=== PATIENT | male | born 1940 | race Caucasian/White ===

== ENCOUNTER 2019-05-05 13:41 | Outpatient (CLI) | payer MEDICARE, OTHER, SELFPAY ==
[2019-05-05 14:11] LABS: Basophils % 0.7 %; Eosinophils # 0.2 10^3/uL (0.0-0.8); Eosinophils % 2.9 %; Hematocrit 42.9 % (42.0-52.0); Hemoglobin 14.3 g/dL (11.7-16.6); Lymphocytes # 0.9 10^3/uL (0.8-4.8); Lymphocytes % 14.7 %; Mean Corpuscular HGB Conc 33.3 g/dL (30.0-36.0); Mean Corpuscular Hemoglobin 31.8 pg (28.0-34.0); Mean Corpuscular Volume 95.5 fL (80-94); Mean Platelet Volume 12.2 fL (7.4-10.4); Monocytes # 0.5 10^3/uL (0.2-0.9); Monocytes % 8.2 %; Neutrophils # 4.3 10^3/uL (1.8-7.7); Neutrophils % 73.2 %; Nucleated Red Blood Cells % 0 %; Platelet Count 121 10^3/cmm (130-400); Red Blood Count 4.49 10^6/uL (4.1-5.3); Red Cell Distribution Width 12.6 % (12.1-15.1); White Blood Count 5.8 10^3/uL (4.0-10.0)
--- NOTE | 2019-05-05 15:55 | ONC FU_ITS ---
Dr. Chun follow up note Patient: Red Barraza Unit #: [id number]: 1940 Dicatated By: Nel Chun M.D.Date of Visit:May 05, 2019 Onc Med Follow-up/Prog Note History of Present Illness: Mr. Red Barraza, is a 79-year-old gentleman with long-standing history of isolated mild thrombocytopenia since 2009, since then has been followed on a regular basis with no significant change in his mild but persistent thrombocytopenia, his platelet count has always stayed above 100,000.And on many occasion lab mentioned about platelet clumps Patient has no history of gross bleeding, no history of petechiae or ecchymosis except occasionally on the arms. No history of hematology evaluation the past. Next Denies any history of night sweats, weight loss, fever or chills, or abdominal fullness or splenomegaly or peripheral lymphadenopathy. Patient denies any alcohol use. No fever or chills, no nausea or vomiting, no abdominal pain, no diarrhea constipation, no history of recurrent infections. CT scan of chest abdomen pelvis done on 02/10/2019 showed subcentimeter mediastinal and hilar lymphadenopathy and 7.6 mm nodule in the periphery of right lower lobe and 4 mm nodule in the left upper lobe and several other subcentimeter nodules seen in the right upper lobe. No significant adenopathy in the abdomen or pelvis spleen size is normal Infrarenal abdominal aortic aneurysm at 3.4 cm. Was referred to Dr. Sprague and seen on 03/05/2019 and his recommendations were follow-up with CT scan of chest her lung nodule and CTA chest abdomen for aneurysm in 6 months. Came for follow-up denies any specific complaints, no nosebleed or gum bleed, no petechiae or ecchymosis, no melena or hematochezia, no hemoptysis or hematemesis. Medications: AZO Bladder Control/Go-Less 1 Capsule Oral daily, Eliquis 1 Tablet (of 5 mg) Oral b.i.d., Famotidine 1 Tablet (of 20 mg) Oral daily, Levothyroxine Sodium 1 Tablet (of 150 mcg) Oral daily, Lipitor 1 Tablet (of 40 mg) Oral daily, Lisinopril 1 Tablet (of 40 mg) Oral b.i.d. Allergies: Sulfa Antibiotics Review of Systems: Review of Systems is not available for this patient. Vital Signs: Performed on May 05, 2019 15:28 Height - 71.00 in Weight - 179.0 lbs (HIGH) BSA - 2.01 sq.m BMI - 24.97 Temperature - 98.0 F (LOW) Pulse - 88 /min Respiration - 18 /min BP - 120/78 mm(hg) O2 Sat - 98 % Pain - 0 Performance Status: 1 - No physically strenuous activity, but ambulatory and able to carry out light or sedentary work (e.g. office work, light house work). (ECOG) Physical Examination: ENMT - . No oral exudates, ulcers, masses, thrush or mucositis. Oropharynx clear. Tongue normal, Respiratory - Lungs are clear to auscultation without rhonchi or wheezing, Cardiovascular - Regular rate and rhythm of heart, Abdomen - Non-tender, non-distended, Good bowel sounds. No guarding or rebound tenderness. No pulsatile masses, Extremities - no edema. Lab/Imaging: Test performed on Feb 10, 2019 11:53 BUN 14 mg/dL Creatinine 1.2 mg/dL Cr Clearance (Est) 54.39 mL/min WBC 5.4 10 3/uL RBC 4.45 10 6/uL HGB 14.7 g/dl HCT 43.0 % MCV 96.6 fl MCH 33.1 pg MCHC 34.2 g/dl RDW 14.7 % Platelet Count 109 10 3/cmm MPV 10.0 fl Neutrophils 3.7 10 3/uL Lymphocytes 0.9 10 3/uL Monocytes 0.4 10 3/uL Eosinophils 0.3 10 3/uL Basophils 0.0 10 3/uL Neutrophil % 68.2 % Lymphocyte % 16.5 % Monocyte % 8.2 % Eosinophil % 6.3 % Basophils % 0.8 % Test performed on Jan 20, 2019 10:44 Manual Neutrophils Abs 3.2 10 3/cmm Manual Lymphocytes Abs 1.2 10 3/cmm Manual Monocytes Abs 0.5 10 3/cmm Manual Eosinophils Abs 0.1 10 3/cmm Manual Basophils Abs 0.1 10 3/cmm Manual Segs % 59 % Manual Bands % 2.0 % Manual Lymphs % 24.0 % Manual Monos % 10.0 % Manual Eos % 3 % Manual Basos % 2.0 % Platelet Estimate DECREASED PLATELET ESTIMATE FROM SMEAR: 122,000 --- 01/20/19 1309 --- PLT EST previously reported as: DECREASED L Impression: Isolated mild thrombocytopenia with a normal hemoglobin and platelets and differential Etiology, multifactorial including low-grade ITP versus underlying MDS or platelet clumping or medication induced.or underlying lymphoproliferative disorder but less likely Initially observed in 2009, and on many occasion lab mentioned about platelets clumps ? Bilateral axillary lymphadenopathy CT scan of neck chest abdomen pelvis done on02/10/2019 showed no significant central lymphadenopathy or organomegaly and no evidence of axillary or cervical lymphadenopathy. Plan: Discussed with patient regarding his labs white blood count 5.8 hemoglobin 14.3 crit 42.8 platelets 121,000 compared to 109,000 on 02/10/2019 Clinically, patient is doing well, no sign of gross bleeding. His platelet count has improved and remaining CBC showed hemoglobin and white blood count in normal range. We'll continue to monitor he will return to clinic in 3 months with CBC As far as pulmonary nodule and aneurysm is concern, patient is being by Dr. Sprague and follow-up CT scan of chest and CTA of chest abdomen is under consideration 6 months Signed By: Nel Chun M.D. <<Signature on File>>
== END 2019-05-05 13:42 | disposition home or self-care (01) ==
LOC: ONCMED 13:46
PROVIDERS: Family Provider Family Medicine; PCP Family Medicine; Visit Provider Internal Medicine Hematology & Oncology
DX: D69.6 Thrombocytopenia, unspecified (principal); I71.4 Abdominal aortic aneurysm, without rupture; R91.1 Solitary pulmonary nodule
CPT/HCPCS: 85025; G0463

== ENCOUNTER 2019-09-23 08:28 | Outpatient (CLI) | payer MEDICARE, OTHER, SELFPAY ==
--- NOTE | 2019-09-23 08:15 | XR_ITS ---
WS: [id number] KUB, 09/23/2019 Clinical Data: Stones Comparison: KUB, 08/06/2016. Findings: There is a large amount of fecal material and gas obscuring detail over both kidneys. No obvious intr arenal calculi are seen. There may be a 0.7 cm right ureteral calculus which is adjacent to the L3-L4 disc interspace. The patient has a healed fracture of the pubic symphysis. 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 XR/XR KUB [id number] Impression: 1. Possible 0.7 cm right ureteral calculus adjacent to the L3-L4 disc interspac e. 2. Large amount of fecal material and gas obscures detail over the kidneys.
== END 2019-09-23 08:29 | disposition home or self-care (01) ==
PROVIDERS: Family Provider Family Medicine; PCP Family Medicine; Visit Provider Urology
DX: N20.0 Calculus of kidney (principal)
CPT/HCPCS: 74018; 81001

== ENCOUNTER 2019-09-26 16:08 | Inpatient (IN) | payer MEDICARE, OTHER, SELFPAY ==
[2019-09-26] VITALS (10 sets, daily range): BP systolic 126–155; BP diastolic 67–103; PULSE 78–104; RESP 16–23; TEMP 37.3–39.5; O2SAT 94–98; BMI 25.7
--- NOTE | 2019-09-26 16:20 | XRR_ITS ---
PROCEDURE INFORMATION: Exam: XR Chest, 1 View Exam date and time: 09/26/2019 4:51 PM Age: 79 years old Clinical indication: Dyspnea; Patient HX: Recent kidney stones, fever began today; Additional info: Dyspnea/cough TECHNIQUE: Imaging protocol: XR of the chest Views: 1 view. COMPARISON: No relevant prior studies available. FINDINGS: Lungs: Minimal discoid atelectasis in the lung bases. No visible active interstitial or alveolar airspace disease to suggest pneumonitis/pneumonia. Pleural space: Unremarkable. No pleural effusion. No pneumothorax. Heart/Mediastinum: Mild cardiomegaly. Arterial sclerosis. Bones/joints: Age related skeletal findings. XR/XR chest 1V portable [id number] IMPRESSION: Mild discoid atelectasis lung bases.
[2019-09-26] MEDS: acetaminophen 325 mg Tablet 650 MG PO (16:37)
--- NOTE | 2019-09-26 16:49 | W.ED.FEVER ---
Documented by User: Julio Corey DO 10/02/19 17:15 HPI - Fever General: Chief Complaint: Fever Stated Complaint: FEVER Time Seen by Provider: 09/26/19 16:18 History of Present Illness: HPI Narrative: 79-year-old male comes in complaining of fever he was seen earlier this week with some flank pain. He had gone to seen Dr. Rene is a history of nephrolithiasis he began treating him for that subsequently he began having a fever and seemed to be worsening and he seen a primary care doctor had some lab work done and were directed to [place] emergency room yesterday and got some IV fluids and a CT scan. They are discharged home on Augmentin although they did not take any he is also been given Cipro the says have not taken that for 4 days. Today he has a temperature that is increasing at home the recorded temp over 100 here he was a temp 103 he is confused and disoriented to time and place. He is aware of his 's presence in the room. He cannot answer any medical history questions for me and all the history is derived from his . MD elicited complaint: fever Pertinent past history: other (Nephrolithiasis) Onset (ago): day(s) Exacerbating factors: nothing Relieving factors: nothing Associated symptoms: Reports flank pain, chills, confusion, dysuria and nausea; Deny chest pain or nasal congestion Treatments prior to arrival fever: none Review of Systems Const: Reports: chills ENMT: Denies: throat pain, ear or mastoid pain, nasal discharge or nasal congestion Card: Denies: chest pain, edema, dyspnea on exertion or orthopnea Resp: Denies: dyspnea, productive cough or non-productive cough GI: Reports: nausea : Reports: flank pain and dysuria Skin/Breast: Denies: rash or pruritus Neuro: Reports: confusion PFSH ED PFSH: Medical History AAA (abdominal aortic aneurysm) 3.4 cm infrarenal abdominal aortic aneurysm following up with Dr. Sprague Chronic anticoagulation A. fib CKD (chronic kidney disease), stage III Hyperlipidemia Hypothyroid Lung nodules Microscopic hematuria Prostatitis Renal calculi Right ureteral calculus Thrombocytopenia Follows up with Dr. Chun, isolated thrombocytopenia Ventricular trigeminy Surgical History Hx of shoulder surgery Hx of tonsillectomy S/P PTCA (percutaneous transluminal coronary angioplasty) Family History Mother CAD (coronary artery disease) Father CAD (coronary artery disease) Social History Smoking and tobacco status: never smoked Alcohol intake: current Alcohol intake frequency: holidays/special occasions only Adopted: No Caregiver/support person: No Lives independently: No Household members: spouse Marital status: Current occupational status: retired History of recent travel: No Physical Exam Const: COMMON NORMALS: no acute distress GENERAL APPEARANCE: cooperative and comfortable ORIENTATION/CONSCIOUSNESS: Yes awake, Yes oriented to person, Yes oriented to place and Yes oriented to time HENMT: COMMON NORMALS: normocephalic, atraumatic, hearing grossly normal bilaterally, external ears normal, EAC's normal, TM's normal bilaterally, Normal nasal mucous membranes and turbinates present, moist oral mucous membranes and oropharynx normal HEAD & SCALP: normocephalic and atraumatic NOSE: Normal nasal mucous membranes and turbinates present EXTERNAL EAR: Yes external ears normal EXTERNAL AUDITORY CANAL: EAC's normal TYMPANIC MEMBRANE: TM's normal bilaterally Eye: COMMON NORMALS: Equal, round and reactive pupils present, EOMs intact bilaterally, conjunctivae normal and no scleral icterus CONJUNCTIVA: Yes conjunctivae normal PUPIL: Yes Equal, round and reactive pupils present Neck/C-Spine: COMMON NORMALS: full ROM, no lymphadenopathy, supple and no JVD Lymph: LYMPHATIC: no lymphadenopathy noted and no lymphedema noted Resp: COMMON NORMALS: normal respiratory effort, No retractions, No use of accessory muscles and clear to auscultation bilaterally AUSCULTATION: clear to auscultation bilaterally Cardio: COMMON NORMALS: no JVD, regular rate, regular rhythm and No murmurs present (Cardio) RATE: regular rate RHYTHM: regular rhythm GI: COMMON NORMALS: Soft to palpation and No hepatosplenomegaly present AUSCULTATION: Yes normoactive bowel sounds PALPATION: Yes Soft to palpation, No Tenderness to palpation present (GI), No Guarding due to palpation present (GI) and Yes No hepatosplenomegaly present Extremity: COMMON NORMALS: normal to inspection, capillary refill normal, no clubbing, cyanosis or edema, no calf tenderness and no pedal edema Neuro: SENSORIUM/ORIENTATION: Yes oriented to person, Yes oriented to place and Yes oriented to time Skin: COMMON NORMALS: no rashes or lesions noted GENERAL SKIN EXAM: no rashes or lesions noted Course Vital Signs: Vital signs: Vital Signs Temperature 98.0 F 09/28/19 19:39 Pulse Rate 97 09/28/19 19:39 Respiratory Rate 18 09/28/19 19:39 Blood Pressure 146/81 09/28/19 19:39 Pulse Oximetry 97 09/28/19 19:39 MDM - Fever MDM Narrative: Medical decision making narrative: Turned over to Dr. Govea at change of shift see his notes for final diagnosis and disposition Lab Data: Labs: Lab Results 09/26/19 09/26/19 09/26/19 Range/Units 16:30 16:31 16:31 WBC 9.7 (4.0-10.0) 10^3/ uL RBC 4.20 (4.1-5.3) 10^6/u L Hgb 13.3 (11.7-16.6) g/dL Hct 39.6 L (42.0-52.0) % MCV 94.3 H (80-94) fL MCH 31.7 (28.0-34.0) pg MCHC 33.6 (30.0-36.0) g/dL RDW 12.7 (12.1-15.1) % Plt Count 104 L (130-400) 10^3/c mm MPV 12.1 H (7.4-10.4) fL Neut % (Auto) 87.9 % Lymph % (Auto) 2.5 % Anderson % (Auto) 8.9 % Eos % (Auto) 0.0 % Baso % (Auto) 0.1 % Neut # (Auto) 8.6 H (1.8-7.7) 10^3/u L Lymph # (Auto) 0.2 L (0.8-4.8) 10^3/u L Anderson # (Auto) 0.9 (0.2-0.9) 10^3/u L Eos # (Auto) 0.0 (0.0-0.8) 10^3/u L Baso # (Auto) 0.0 (0.0-0.1) 10^3/u L Nucleated RBC % (a uto) 0 % Nucleated RBCs # 0.0 /100WBC Sodium 129 L (136-145) mmol/L Potassium 4.2 (3.5-5.1) mmol/L Chloride 95 L (98-107) mmol/L Carbon Dioxide 23 (22-29) mmol/L Anion Gap 15.2 (5-19) BUN 20 (8-23) mg/dL Creatinine 1.7 H (0.7-1.2) mg/dL Glucose 129 H (65-115) mg/dL Serum Osmolality (278-305) mOsm/k g Calculated Osmolal ity 266 L (285-295) mOsm/k g Lactate (0.5-2.2) mmol/L Uric Acid (3.4-7.0) mg/dL Calcium 8.0 L (8.5-10.5) mg/dL Total Bilirubin 1.3 H (0.15-1.2) mg/dL AST 44 H (0-40) U/L ALT 41 (0-41) U/L Alkaline Phosphata se 73 (40-130) IU/L Total Protein 6.3 L (6.6-8.7) g/dL Albumin 3.3 L (3.5-5.2) g/dL Globulin 3.0 (1.3-4.6) g/dL Lipase 43 (13-60) U/L TSH (0.27-4.20) uIU/ mL Urine Color (Yellow) Urine Appearance (CLEAR) Urine pH (5-7) Ur Specific Gravit y (1.005-1.030) Urine Protein (Negative) Urine Glucose (UA) (Normal) Urine Ketones (Negative) Urine Blood (Negative) Urine Nitrate (Negative) Urine Bilirubin (NEGATIVE) Urine Urobilinogen (Negative) mg/dL Ur Leukocyte Elvira ase (Negative) Urine RBC (0-2) /hpf Urine WBC (0-5) /hpf Ur Squamous Epith Cells (0-5) Amorphous Sediment Urine Bacteria (NONE) Serum Ketones (Negative) Influenza Type A A g Negative (Negative) Influenza Type B A g Negative (Negative) 09/26/19 09/26/19 09/26/19 Range/Units 16:31 16:31 16:31 WBC (4.0-10.0) 10^3/ uL RBC (4.1-5.3) 10^6/u L Hgb (11.7-16.6) g/dL Hct (42.0-52.0) % MCV (80-94) fL MCH (28.0-34.0) pg MCHC (30.0-36.0) g/dL RDW (12.1-15.1) % Plt Count (130-400) 10^3/c mm MPV (7.4-10.4) fL Neut % (Auto) % Lymph % (Auto) % Anderson % (Auto) % Eos % (Auto) % Baso % (Auto) % Neut # (Auto) (1.8-7.7) 10^3/u L Lymph # (Auto) (0.8-4.8) 10^3/u L Anderson # (Auto) (0.2-0.9) 10^3/u L Eos # (Auto) (0.0-0.8) 10^3/u L Baso # (Auto) (0.0-0.1) 10^3/u L Nucleated RBC % (a uto) % Nucleated RBCs # /100WBC Sodium (136-145) mmol/L Potassium (3.5-5.1) mmol/L Chloride (98-107) mmol/L Carbon Dioxide (22-29) mmol/L Anion Gap (5-19) BUN (8-23) mg/dL Creatinine (0.7-1.2) mg/dL Glucose (65-115) mg/dL Serum Osmolality 268 L (278-305) mOsm/k g Calculated Osmolal ity (285-295) mOsm/k g Lactate (0.5-2.2) mmol/L Uric Acid 4.2 (3.4-7.0) mg/dL Calcium (8.5-10.5) mg/dL Total Bilirubin (0.15-1.2) mg/dL AST (0-40) U/L ALT (0-41) U/L Alkaline Phosphata se (40-130) IU/L Total Protein (6.6-8.7) g/dL Albumin (3.5-5.2) g/dL Globulin (1.3-4.6) g/dL Lipase (13-60) U/L TSH 0.53 (0.27-4.20) uIU/ mL Urine Color (Yellow) Urine Appearance (CLEAR) Urine pH (5-7) Ur Specific Gravit y (1.005-1.030) Urine Protein (Negative) Urine Glucose (UA) (Normal) Urine Ketones (Negative) Urine Blood (Negative) Urine Nitrate (Negative) Urine Bilirubin (NEGATIVE) Urine Urobilinogen (Negative) mg/dL Ur Leukocyte Elvira ase (Negative) Urine RBC (0-2) /hpf Urine WBC (0-5) /hpf Ur Squamous Epith Cells (0-5) Amorphous Sediment Urine Bacteria (NONE) Serum Ketones Negative (Negative) Influenza Type A A g (Negative) Influenza Type B A g (Negative) 09/26/19 09/26/19 Range/Units 16:36 17:25 WBC (4.0-10.0) 10^3/ uL RBC (4.1-5.3) 10^6/u L Hgb (11.7-16.6) g/dL Hct (42.0-52.0) % MCV (80-94) fL MCH (28.0-34.0) pg MCHC (30.0-36.0) g/dL RDW (12.1-15.1) % Plt Count (130-400) 10^3/c mm MPV (7.4-10.4) fL Neut % (Auto) % Lymph % (Auto) % Anderson % (Auto) % Eos % (Auto) % Baso % (Auto) % Neut # (Auto) (1.8-7.7) 10^3/u L Lymph # (Auto) (0.8-4.8) 10^3/u L Anderson # (Auto) (0.2-0.9) 10^3/u L Eos # (Auto) (0.0-0.8) 10^3/u L Baso # (Auto) (0.0-0.1) 10^3/u L Nucleated RBC % (a uto) % Nucleated RBCs # /100WBC Sodium (136-145) mmol/L Potassium (3.5-5.1) mmol/L Chloride (98-107) mmol/L Carbon Dioxide (22-29) mmol/L Anion Gap (5-19) BUN (8-23) mg/dL Creatinine (0.7-1.2) mg/dL Glucose (65-115) mg/dL Serum Osmolality (278-305) mOsm/k g Calculated Osmolal ity (285-295) mOsm/k g Lactate 0.9 (0.5-2.2) mmol/L Uric Acid (3.4-7.0) mg/dL Calcium (8.5-10.5) mg/dL Total Bilirubin (0.15-1.2) mg/dL AST (0-40) U/L ALT (0-41) U/L Alkaline Phosphata se (40-130) IU/L Total Protein (6.6-8.7) g/dL Albumin (3.5-5.2) g/dL Globulin (1.3-4.6) g/dL Lipase (13-60) U/L TSH (0.27-4.20) uIU/ mL Urine Color Yellow (Yellow) Urine Appearance Clear (CLEAR) Urine pH 5 (5-7) Ur Specific Gravit y 1.015 (1.005-1.030) Urine Protein 1+ H (Negative) Urine Glucose (UA) Norm (Normal) Urine Ketones Negative (Negative) Urine Blood 2+ H (Negative) Urine Nitrate Negative (Negative) Urine Bilirubin Neg (NEGATIVE) Urine Urobilinogen 4 H (Negative) mg/dL Ur Leukocyte Elvira ase Negative (Negative) Urine RBC 0-4 H (0-2) /hpf Urine WBC 5-10 H (0-5) /hpf Ur Squamous Epith Cells 0-4 H (0-5) Amorphous Sediment Not Reportable Urine Bacteria Trace (NONE) Serum Ketones (Negative) Influenza Type A A g (Negative) Influenza Type B A g (Negative) Discharge Plan Discharge Patient Disposition: Admitted As Inpatient Admit Provider: Andreina Menchaca Clinical Impression: Pyelonephritis, Ureterolithiasis Condition: Stable Discharge Orders: Discharge Order (Routine); Ordered 09/28/19 Ordered By: Joselin Wolf Referrals: Leeann Mcclendon MD [Primary Care Provider] - 4-7 days (Post hospital discharge follow up. Treated for complicated UTI and had R ureteroscopy, laser lithotripsy and stent placement done by Dr. Rene.) Abdoul Rene MD [Physician] - 4-7 days (Post hospital discharge follow up. ) Discharge Diet: Cardiac Discharge Activity: Increase activity as tolerated Patient Instructions: Ciprofloxacin (By mouth), Cystoscopy (DC), Lithotripsy for Removal of Kidney Stones (DC) Discharge Date/Time: 09/26/19 21:48 Coding Level of Care Code ED Associate Embalmer/Funeral Director for Chg Fwd Exam Comprehensive Documented by User: Esvin Govea DO 09/27/19 03:11 HPI - Fever General: Chief Complaint: Fever Stated Complaint: FEVER Time Seen by Provider: 09/26/19 16:18 PFSH ED PFSH: Medical History AAA (abdominal aortic aneurysm) 3.4 cm infrarenal abdominal aortic aneurysm following up with Dr. Sprague Chronic anticoagulation A. fib CKD (chronic kidney disease), stage III Hyperlipidemia Hypothyroid Lung nodules Microscopic hematuria Prostatitis Renal calculi Right ureteral calculus Thrombocytopenia Follows up with Dr. Chun, isolated thrombocytopenia Ventricular trigeminy Surgical History Hx of shoulder surgery Hx of tonsillectomy S/P PTCA (percutaneous transluminal coronary angioplasty) Family History Mother CAD (coronary artery disease) Father CAD (coronary artery disease) Social History Smoking and tobacco status: never smoked Alcohol intake: current Alcohol intake frequency: holidays/special occasions only Adopted: No Caregiver/support person: No Lives independently: No Household members: spouse Marital status: Current occupational status: retired History of recent travel: No Course Vital Signs: Vital signs: Vital Signs Temperature 98.0 F 09/28/19 19:39 Pulse Rate 97 09/28/19 19:39 Respiratory Rate 18 09/28/19 19:39 Blood Pressure 146/81 09/28/19 19:39 Pulse Oximetry 97 09/28/19 19:39 MDM - Fever MDM Narrative: Medical decision making narrative: 79-year-old male with a known right kidney stone. He was seen at an outside facility last night for pain. He has a significant fever he developed today. His white count is only 9.7. His creatinine is 1.7. CT does not reveal a urinoma or abscess. It reveals a mid ureter stone with severe right hydronephrosis and hydroureter and perinephric stranding he is received a dose of ceftriaxone. He will be admitted with urology consultation. Lab Data: Labs: Lab Results 09/26/19 09/26/19 09/26/19 Range/Units 16:30 16:31 16:31 WBC 9.7 (4.0-10.0) 10^3/ uL RBC 4.20 (4.1-5.3) 10^6/u L Hgb 13.3 (11.7-16.6) g/dL Hct 39.6 L (42.0-52.0) % MCV 94.3 H (80-94) fL MCH 31.7 (28.0-34.0) pg MCHC 33.6 (30.0-36.0) g/dL RDW 12.7 (12.1-15.1) % Plt Count 104 L (130-400) 10^3/c mm MPV 12.1 H (7.4-10.4) fL Neut % (Auto) 87.9 % Lymph % (Auto) 2.5 % Anderson % (Auto) 8.9 % Eos % (Auto) 0.0 % Baso % (Auto) 0.1 % Neut # (Auto) 8.6 H (1.8-7.7) 10^3/u L Lymph # (Auto) 0.2 L (0.8-4.8) 10^3/u L Anderson # (Auto) 0.9 (0.2-0.9) 10^3/u L Eos # (Auto) 0.0 (0.0-0.8) 10^3/u L Baso # (Auto) 0.0 (0.0-0.1) 10^3/u L Nucleated RBC % (a uto) 0 % Nucleated RBCs # 0.0 /100WBC Sodium 129 L (136-145) mmol/L Potassium 4.2 (3.5-5.1) mmol/L Chloride 95 L (98-107) mmol/L Carbon Dioxide 23 (22-29) mmol/L Anion Gap 15.2 (5-19) BUN 20 (8-23) mg/dL Creatinine 1.7 H (0.7-1.2) mg/dL Glucose 129 H (65-115) mg/dL Serum Osmolality (278-305) mOsm/k g Calculated Osmolal ity 266 L (285-295) mOsm/k g Lactate (0.5-2.2) mmol/L Uric Acid (3.4-7.0) mg/dL Calcium 8.0 L (8.5-10.5) mg/dL Total Bilirubin 1.3 H (0.15-1.2) mg/dL AST 44 H (0-40) U/L ALT 41 (0-41) U/L Alkaline Phosphata se 73 (40-130) IU/L Total Protein 6.3 L (6.6-8.7) g/dL Albumin 3.3 L (3.5-5.2) g/dL Globulin 3.0 (1.3-4.6) g/dL Lipase 43 (13-60) U/L TSH (0.27-4.20) uIU/ mL Urine Color (Yellow) Urine Appearance (CLEAR) Urine pH (5-7) Ur Specific Gravit y (1.005-1.030) Urine Protein (Negative) Urine Glucose (UA) (Normal) Urine Ketones (Negative) Urine Blood (Negative) Urine Nitrate (Negative) Urine Bilirubin (NEGATIVE) Urine Urobilinogen (Negative) mg/dL Ur Leukocyte Elvira ase (Negative) Urine RBC (0-2) /hpf Urine WBC (0-5) /hpf Ur Squamous Epith Cells (0-5) Amorphous Sediment Urine Bacteria (NONE) Serum Ketones (Negative) Influenza Type A A g Negative (Negative) Influenza Type B A g Negative (Negative) 09/26/19 09/26/19 09/26/19 Range/Units 16:31 16:31 16:31 WBC (4.0-10.0) 10^3/ uL RBC (4.1-5.3) 10^6/u L Hgb (11.7-16.6) g/dL Hct (42.0-52.0) % MCV (80-94) fL MCH (28.0-34.0) pg MCHC (30.0-36.0) g/dL RDW (12.1-15.1) % Plt Count (130-400) 10^3/c mm MPV (7.4-10.4) fL Neut % (Auto) % Lymph % (Auto) % Anderson % (Auto) % Eos % (Auto) % Baso % (Auto) % Neut # (Auto) (1.8-7.7) 10^3/u L Lymph # (Auto) (0.8-4.8) 10^3/u L Anderson # (Auto) (0.2-0.9) 10^3/u L Eos # (Auto) (0.0-0.8) 10^3/u L Baso # (Auto) (0.0-0.1) 10^3/u L Nucleated RBC % (a uto) % Nucleated RBCs # /100WBC Sodium (136-145) mmol/L Potassium (3.5-5.1) mmol/L Chloride (98-107) mmol/L Carbon Dioxide (22-29) mmol/L Anion Gap (5-19) BUN (8-23) mg/dL Creatinine (0.7-1.2) mg/dL Glucose (65-115) mg/dL Serum Osmolality 268 L (278-305) mOsm/k g Calculated Osmolal ity (285-295) mOsm/k g Lactate (0.5-2.2) mmol/L Uric Acid 4.2 (3.4-7.0) mg/dL Calcium (8.5-10.5) mg/dL Total Bilirubin (0.15-1.2) mg/dL AST (0-40) U/L ALT (0-41) U/L Alkaline Phosphata se (40-130) IU/L Total Protein (6.6-8.7) g/dL Albumin (3.5-5.2) g/dL Globulin (1.3-4.6) g/dL Lipase (13-60) U/L TSH 0.53 (0.27-4.20) uIU/ mL Urine Color (Yellow) Urine Appearance (CLEAR) Urine pH (5-7) Ur Specific Gravit y (1.005-1.030) Urine Protein (Negative) Urine Glucose (UA) (Normal) Urine Ketones (Negative) Urine Blood (Negative) Urine Nitrate (Negative) Urine Bilirubin (NEGATIVE) Urine Urobilinogen (Negative) mg/dL Ur Leukocyte Elvira ase (Negative) Urine RBC (0-2) /hpf Urine WBC (0-5) /hpf Ur Squamous Epith Cells (0-5) Amorphous Sediment Urine Bacteria (NONE) Serum Ketones Negative (Negative) Influenza Type A A g (Negative) Influenza Type B A g (Negative) 09/26/19 09/26/19 Range/Units 16:36 17:25 WBC (4.0-10.0) 10^3/ uL RBC (4.1-5.3) 10^6/u L Hgb (11.7-16.6) g/dL Hct (42.0-52.0) % MCV (80-94) fL MCH (28.0-34.0) pg MCHC (30.0-36.0) g/dL RDW (12.1-15.1) % Plt Count (130-400) 10^3/c mm MPV (7.4-10.4) fL Neut % (Auto) % Lymph % (Auto) % Anderson % (Auto) % Eos % (Auto) % Baso % (Auto) % Neut # (Auto) (1.8-7.7) 10^3/u L Lymph # (Auto) (0.8-4.8) 10^3/u L Anderson # (Auto) (0.2-0.9) 10^3/u L Eos # (Auto) (0.0-0.8) 10^3/u L Baso # (Auto) (0.0-0.1) 10^3/u L Nucleated RBC % (a uto) % Nucleated RBCs # /100WBC Sodium (136-145) mmol/L Potassium (3.5-5.1) mmol/L Chloride (98-107) mmol/L Carbon Dioxide (22-29) mmol/L Anion Gap (5-19) BUN (8-23) mg/dL Creatinine (0.7-1.2) mg/dL Glucose (65-115) mg/dL Serum Osmolality (278-305) mOsm/k g Calculated Osmolal ity (285-295) mOsm/k g Lactate 0.9 (0.5-2.2) mmol/L Uric Acid (3.4-7.0) mg/dL Calcium (8.5-10.5) mg/dL Total Bilirubin (0.15-1.2) mg/dL AST (0-40) U/L ALT (0-41) U/L Alkaline Phosphata se (40-130) IU/L Total Protein (6.6-8.7) g/dL Albumin (3.5-5.2) g/dL Globulin (1.3-4.6) g/dL Lipase (13-60) U/L TSH (0.27-4.20) uIU/ mL Urine Color Yellow (Yellow) Urine Appearance Clear (CLEAR) Urine pH 5 (5-7) Ur Specific Gravit y 1.015 (1.005-1.030) Urine Protein 1+ H (Negative) Urine Glucose (UA) Norm (Normal) Urine Ketones Negative (Negative) Urine Blood 2+ H (Negative) Urine Nitrate Negative (Negative) Urine Bilirubin Neg (NEGATIVE) Urine Urobilinogen 4 H (Negative) mg/dL Ur Leukocyte Elvira ase Negative (Negative) Urine RBC 0-4 H (0-2) /hpf Urine WBC 5-10 H (0-5) /hpf Ur Squamous Epith Cells 0-4 H (0-5) Amorphous Sediment Not Reportable Urine Bacteria Trace (NONE) Serum Ketones (Negative) Influenza Type A A g (Negative) Influenza Type B A g (Negative) Discharge Plan Discharge Patient Disposition: Admitted As Inpatient Admit Provider: Andreina Menchaca Clinical Impression: Pyelonephritis, Ureterolithiasis Condition: Stable Discharge Orders: Discharge Order (Routine); Ordered 09/28/19 Ordered By: Joselin Wolf Referrals: Leeann Mcclendon MD [Primary Care Provider] - 4-7 days (Post hospital discharge follow up. Treated for complicated UTI and had R ureteroscopy, laser lithotripsy and stent placement done by Dr. Rene.) Abdoul Rene MD [Physician] - 4-7 days (Post hospital discharge follow up. ) Discharge Diet: Cardiac Discharge Activity: Increase activity as tolerated Patient Instructions: Ciprofloxacin (By mouth), Cystoscopy (DC), Lithotripsy for Removal of Kidney Stones (DC) Discharge Date/Time: 09/26/19 21:48 Coding Level of Care Code ED Associate Embalmer/Funeral Director for Chg Fwd Exam Comprehensive
[2019-09-26 16:53] LABS: Basophils % 0.1 %; Hematocrit 39.6 % (42.0-52.0); Hemoglobin 13.3 g/dL (11.7-16.6); Lymphocytes # 0.2 10^3/uL (0.8-4.8); Lymphocytes % 2.5 %; Mean Corpuscular HGB Conc 33.6 g/dL (30.0-36.0); Mean Corpuscular Hemoglobin 31.7 pg (28.0-34.0); Mean Corpuscular Volume 94.3 fL (80-94); Mean Platelet Volume 12.1 fL (7.4-10.4); Monocytes # 0.9 10^3/uL (0.2-0.9); Monocytes % 8.9 %; Neutrophils # 8.6 10^3/uL (1.8-7.7); Neutrophils % 87.9 %; Nucleated Red Blood Cells % 0 %; Platelet Count 104 10^3/cmm (130-400); Red Cell Distribution Width 12.7 % (12.1-15.1); White Blood Count 9.7 10^3/uL (4.0-10.0)
[2019-09-26 17:01] LABS: Ketone (Acetest) Serum Negative (Negative)
[2019-09-26] MEDS: cefTRIAXone 1,000 MG in sodium chloride 0.9% (plus) 50 ML 100 MG IV ×2 (17:02→23:36)
[2019-09-26] MEDS: sodium chloride 0.9% 1,000 ML 999 ML IV (17:02)
[2019-09-26] MEDS: ondansetron 2 mg/ML SDV 2 mL 4 MG IVP (17:02)
[2019-09-26 17:10] LABS: Alanine Aminotransferase 41 U/L (0-41); Albumin Level 3.3 g/dL (3.5-5.2); Alkaline Phosphatase 73 IU/L (40-130); Anion Gap 15.2 (5-19); Aspartate Amino Transferase 44 U/L (0-40); Blood Urea Nitrogen 20 mg/dL (8-23); Carbon Dioxide 23 mmol/L (22-29); Chloride 95 mmol/L (98-107); Glucose 129 mg/dL (65-115); Lipase 43 U/L (13-60); Osmolality Calculated 266 mOsm/kg (285-295); Potassium 4.2 mmol/L (3.5-5.1); Sodium 129 mmol/L (136-145); Total Bilirubin 1.3 mg/dL (0.15-1.2); Total Protein 6.3 g/dL (6.6-8.7)
[2019-09-26 17:11] LABS: Lactate (Lactic Acid level) 0.9 mmol/L (0.5-2.2)
--- NOTE | 2019-09-26 17:14 | CTR_ITS ---
PROCEDURE INFORMATION: Exam: CT Abdomen And Pelvis Without Contrast Exam date and time: 09/26/2019 8:15 PM Age: 79 years old Clinical indication: Patient HX: Known R stone - fever - flank pain TECHNIQUE: Imaging protocol: Computed tomography of the abdomen and pelvis without contrast. Radiation optimization: All CT scans at this facility use at least one of these dose optimization techniques: automated exposure control; mA and/or kV adjustment per patient size (includes targeted exams where dose is matched to clinical indication); or iterative reconstruction. COMPARISON: No relevant prior studies available. RADIATION DOSE METRICS: Total DLP: 501.87 mGy-cm FINDINGS: Lungs: Limited assessment lung bases reveals evidence of antecedent granulomatous disease. Scant right pleural effusion. Coronary artery disease. Minimal parenchymal scar. Liver: Unremarkable. No mass. Gallbladder and bile ducts: Normal. No calcified stones. No ductal dilation. Pancreas: Moderately atrophic pancreas. No pancreatic ductal ectasia. Spleen: Normal. No splenomegaly. Adrenals: Normal. No mass. Kidneys and ureters: Examination reveals a right mid ureteral stone measures 6 mm by 4 mm x 5 mm. The stone is located at the L3/L4 level. Moderate severe right hydronephrosis and hydroureter to the high grade partially obstructing stone. There is a suspected 2nd very tiny stone just distal to the main stone measuring only approximately 1 mm. Marked perinephric standing right kidney. No visible urinoma. Also evidence of edema to the parenchyma of the right kidney. No visible residual nephrolithiasis right kidney. Left kidney without hydronephrosis or perinephric fluid. Mild perinephric stranding. Simple appearing left renal cortical cysts. Bosniak 1. No follow-up recommended. Stomach and bowel: Diverticulosis coli, primarily the sigmoid colon, without evidence for diverticulitis. Nonobstructive bowel pattern. No evidence for significant adynamic or reactive ileus. Constipation. Appendix: No evidence of appendicitis. Intraperitoneal space: Unremarkable. No free air. No significant fluid collection. Vasculature: Mild fusiform aneurysmal dilatation of the distal abdominal aorta maximum intraluminal diameter 31 mm. Extensive arterial sclerotic disease. Lymph nodes: Unremarkable. No enlarged lymph nodes. Bladder: Urinary bladder unremarkable. No visible bladder stone. Reproductive: Prostate hypertrophy. Bones/joints: Age-appropriate degenerative disease and degenerative disc disease most advanced L4/L5 and L5/S1. Soft tissues: Unremarkable. Other findings: Motion artifact. CT/CT kidney stone [id number] IMPRESSION: 1. Right mid ureterolithiasis measuring 6 mm x 4 mm x 5 mm resulting in moderate severe right hydronephrosis and hydroureter to the high grade partially obstructing stone. 2. Marked perinephric stranding right kidney with evidence of edema of the parenchyma. 3. No visible formed urinoma. 4. Potential 2nd very tiny stone just distal to the main right ureter stone. COMMENTS: Consistent with the [employer]'s Incidental Findings Committee white paper (J Am Oly [employer]iol 2018): Any incidental renal lesion less than 1.0 cm or classified as too small to characterize, or any incidental cystic renal lesion characterized as simple-appearing, is likely benign. No follow-up imaging is recommended for these lesions per consensus recommendations based on imaging criteria. Radiation Dose CTDIVOL = (mGy): DLP = 501.87 (mGy-cm)
[2019-09-26 17:15] LABS: Influenza A by IFA Negative (Negative); Influenza B by IFA Negative (Negative)
[2019-09-26 18:20] LABS: Add Urine Microscopic? YES; Bilirubin Urine Neg (NEGATIVE); Blood Urine 2+ (Negative); Glucose Urine UA Norm (Normal); Ketones Urine Negative (Negative); Leukocyte Esterase Urine Negative (Negative); Nitrate Urine Negative (Negative); Protein Urine 1+ (Negative); Specific Gravity, Urine 1.015 (1.005-1.030); Urine Appearance Clear (CLEAR); Urine Color Yellow (Yellow); Urobilinogen Urine 4 mg/dL (Negative); pH Urine 5 (5-7)
[2019-09-26 18:22] LABS: Add Urine Culture? No; Bacteria Urine TRACE; RBC Urine 0-4 /hpf (0-2); Squamous Epithelial Cell Urine 0-4 (0-5)
--- NOTE | 2019-09-26 20:53 | PM.HP ---
Providers/Chief Complaint Primary Care Provider: Leeann Mcclendon MD Chief Complaint: FEVER History of Present Illness Red Barraza is a 79 year old male who has history of A. 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 Patient is following up with Dr. Rene, last KUB showed 6.5 mm right-sided kidney stone which is getting larger in dimension. Dr. Barrera recommended 09/28/2019 with cystoscopy. is at the bedside who is stating that for last 1 week he has been more lethargic and tired, she has been noticing some spells of confusion which would last for couple of minutes, today when she was eating his breakfast she noticed that his right hand was very tremulous. He has not been taking his medications for about 4 to 5 days including levothyroxine and Eliquis. On Saturday, he started experiencing right flank pain, he had a urinalysis which was showing microscopic hematuria for which she was seen by Dr. Rene on Saturday, Dr. Rene asked him to discontinue Eliquis and come on Saturday for cystoscopy. Meanwhile, his PCP called him to go to [facility] because of sodium 126, is stating that he received 1 L of normal saline and was discharged home. His temperature at home was 100.3, she noticed right arm coarse tremors at breakfast table which made her very concerned and brought him to the hospital. Patient is denying diarrhea, vomiting, shortness of breath, chest pain, endorses right-sided flank pain radiating towards his groin. Diagnostics in the ER Normal hemodynamics, he has been afebrile, no signs of sepsis, Sodium 126, worsening creatinine 1.7 today, thrombocytopenia Patient is awake alert oriented x3 at the time of injury, no active seizures or confusion noted He has received 1 L of normal saline in the ER along ceftriaxone [address] Rene has been notified and consulted by the ER physician Review of Systems Const: Reports: fever(s), chills, body aches, change in appetite, change in weight, fatigue and malaise; Denies: night sweats or diaphoresis Eyes: Denies: change in vision ENMT: Denies: throat pain Card: Denies: chest pain Resp: Denies: dyspnea GI: Reports: nausea; Denies: abdominal pain, vomiting, diarrhea or constipation : Reports: flank pain and dysuria; Denies: difficulty urinating or urinary frequency Musc: Denies: neck pain Skin/Breast: Denies: rash Neuro: Reports: confusion; Denies: headache(s), Slurred speech present, difficulty communicating thoughts, seizure-like activity or restless legs Psych: Denies: anxiety or depression Endo: Denies: polyuria Ha/Lymph: Denies: easy bruising All/Imm: Denies: urticaria Medications/Allergies Home Medications Medication Instructions Recorded Confirmed Last Taken Type apixaban 5 mg tablet 5 mg PO BID 09/23/19 09/26/19 09/23/19 History atorvastatin 40 mg tablet 40 mg PO DAILY 09/23/19 09/26/19 09/25/19 History famotidine 20 mg tablet 20 mg PO DAILY PRN 09/23/19 09/26/19 Unknown History levothyroxine 150 mcg capsule 150 mcg PO DAILY 09/23/19 09/26/19 09/26/19 History lisinopril 40 mg tablet 40 mg PO BID tab 09/23/19 09/26/19 09/26/19 History hydrocodone-acetaminophen 1 tab PO Q4H PRN 09/25/19 09/26/19 09/26/19 History amoxicillin-pot clavulanate 1 tab PO BID 09/26/19 09/26/19 09/26/19 History [Augmentin] nitroglycerin [Nitrostat] 0.4 mg SUBLINGUAL Q5M PRN 09/26/19 09/26/19 Unknown History pumpkin seed extract-soy germ [Azo 1 cap PO TID PRN 09/26/19 09/26/19 Unknown History Bladder Control] Allergies Allergy/AdvReac Type Severity Reaction Status Date / Time Sulfa (Sulfonamide Allergy NA Verified 09/26/19 16:12 Antibiotics) PFSH Acute PFSH: Medical History AAA (abdominal aortic aneurysm) 3.4 cm infrarenal abdominal aortic aneurysm following up with Dr. Sprague CKD (chronic kidney disease), stage III Hyperlipidemia Hypothyroid Lung nodules Microscopic hematuria Prostatitis Renal calculi Right ureteral calculus Thrombocytopenia Follows up with Dr. Chun, isolated thrombocytopenia Ventricular trigeminy Surgical History Hx of shoulder surgery Hx of tonsillectomy S/P PTCA (percutaneous transluminal coronary angioplasty) Family History Mother CAD (coronary artery disease) Father CAD (coronary artery disease) Social History Smoking and tobacco status: never smoked Alcohol intake: current Alcohol intake frequency: holidays/special occasions only Adopted: No Caregiver/support person: No Lives independently: No Household members: spouse Marital status: Current occupational status: retired History of recent travel: No Vitals/I&O/Wt Last Vital Signs Temp 99.2 F 09/26/19 17:17 Pulse 90 09/26/19 20:00 Resp 22 H 09/26/19 20:00 BP 147/103 09/26/19 20:00 Pulse Ox 94 09/26/19 20:00 09/26/19 09/26/19 09/26/19 06:59 14:59 22:59 Intake Total 1050 / 1050 Balance 1050 / 1050 Weight last 48 hrs Weight 83.915 kg Physical Exam Narrative: EXAM NARRATIVE: Head to toe examination Patient was standing in the room when I entered Awake alert oriented x3 GCS 15 No signs of confusion Able to state above-mentioned detail and endorses memory lapses is at the bedside assisting with HPI No active tremors S1, S2 variable No signs of heart Abdomen soft, nontender, nondistended, right CVA tenderness positive Lungs are clear to auscultation without adventitious sounds Neurological nonfocal exam other than memory lapses Appropriate mood and affect Skin shows petechia purpura no active bleeding Reflexes equivocal, Data : 09/26/19 16:31 09/26/19 16:31 Micro: Microbiology 09/26/19 16:31 Blood Culture - Preliminary Blood SPECIMEN COLLECTED 09/26/19 16:36 Blood Culture - Preliminary Blood SPECIMEN COLLECTED A&P Assessment and plan (1) Hyponatremia: Status: Acute (2) Ureterolithiasis: Status: Acute (3) Right ureteral calculus: Status: Acute (4) AAA (abdominal aortic aneurysm): Status: Acute (5) Pyelonephritis: Status: Acute (6) A-fib: Status: Acute (7) Acute kidney injury: Status: Acute (8) Dehydration: Status: Acute (9) Hypothyroidism: Status: Acute Additional A&P Information Hyponatremia His previous sodium level has been within normal range He looks clinically dehydrated No history of vomiting or diarrhea Has not taken his levothyroxine for about a week Experience symptoms of hyponatremia at home however stable during my evaluation Slow correction of sodium, sodium level check every 4 hours, I believe etiology is dehydration with underlying hypothyroidism, will check TSH, serum and urine osmolarity, urine sodium level If his neurological status changes we will transfer him to ICU Obstructive nephrolithiasis Worsening hydronephrosis No active signs of sepsis Temperature at home 100 point No leukocytosis Status post 1 L normal saline and 1 g of ceftriaxone in the ER Continue ceftriaxone, blood culture obtained Dr. Rene consulted and notified Acute kidney injury secondary to obstructive nephrolithiasis Martinez catheter placement to monitor urine output Hold nephrotoxic agents/lisinopril Dehydration: IV fluid maintenance rate with slow correction of sodium I will target for 6 mEq sodium correction in 24-hour A. fib without RVR No acute exacerbation, hold Eliquis in anticipation of cystoscopy His last dose of Eliquis was on Saturday Infrarenal abdominal aortic aneurysm Follows up with Dr. Sprague, no vascular compromise Full code N.p.o. after midnight Analgesia with Dilaudid Antiemetic Zofran, will get an EKG to check QTc interval Attestations Medical Necessity Statement*: Anticipating stay in the hospital cross more than 2 midnights currently need monitoring for hyponatremia and management of obstructive urolithiasis Time Spent in Patient Care: (>than 50% of time spent in counselling and/or direct pt care on unit). 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
[2019-09-26 23:09] LABS: Sodium 130 mmol/L (136-145)
[2019-09-26] MEDS: famotidine 20 mg Tablet PO (23:37)
[2019-09-26] MEDS: sodium chloride 0.9% 1,000 ML 50 ML IV (23:37)
[2019-09-26 23:38] LABS: Thyroid Stimulating Hormone 0.53 uIU/mL (0.27-4.20); Uric Acid 4.2 mg/dL (3.4-7.0)
[2019-09-27] VITALS: BP 153/84; PULSE 75; RESP 18; TEMP 37.6; O2SAT 98
[2019-09-27 04:00] VITALS: BP 156/86; PULSE 97; RESP 18; TEMP 37.2; O2SAT 94
[2019-09-27 04:51] LABS: Basophils % 0.2 %; Eosinophils % 0.1 %; Hemoglobin 11.9 g/dL (11.7-16.6); Lymphocytes # 0.2 10^3/uL (0.8-4.8); Lymphocytes % 2.5 %; Mean Corpuscular Hemoglobin 32.2 pg (28.0-34.0); Mean Corpuscular Volume 94.9 fL (80-94); Mean Platelet Volume 11.8 fL (7.4-10.4); Monocytes # 0.8 10^3/uL (0.2-0.9); Monocytes % 8.5 %; Neutrophils # 8.5 10^3/uL (1.8-7.7); Neutrophils % 88.1 %; Nucleated Red Blood Cells % 0 %; Platelet Count 103 10^3/cmm (130-400); Red Blood Count 3.69 10^6/uL (4.1-5.3); Red Cell Distribution Width 12.7 % (12.1-15.1); White Blood Count 9.6 10^3/uL (4.0-10.0)
[2019-09-27 05:05] LABS: Anion Gap 16.3 (5-19); Blood Urea Nitrogen 19 mg/dL (8-23); Carbon Dioxide 21 mmol/L (22-29); Chloride 99 mmol/L (98-107); Glucose 120 mg/dL (65-115); Osmolality Calculated 272 mOsm/kg (285-295); Potassium 4.3 mmol/L (3.5-5.1); Sodium 132 mmol/L (136-145)
[2019-09-27 07:24] VITALS: BP 137/82; PULSE 82; RESP 18; TEMP 36.8; O2SAT 97
--- NOTE | 2019-09-27 08:32 | P.CONIM_ITS ---
Providers/Reason For Consult Consulting Physican/Specialty*: Urology/Rene Reason for Consult*: Right mid ureteral stone, concern for possible infection with recent febrile episode. Attending Physician: Joselin Wolf MD Primary Care Provider: Leeann Mcclendon MD History of Present Illness History of Present Illness Red Barraza is a 79 year old male well-known to me for longstanding history of CHRONIC PROSTATITIS and UROLITHIASIS. Had a known right mid pole stone since 2006 and elected no treatment other than observation. Recently developed increasing symptoms consistent with right renal colic and a KUB showed that the right mid pole stone had migrated down to the right mid ureter. At that time there was no evidence of UTI reviewed and consider the above information for this visit has been continued on ciprofloxacin for his chronic prostatitis. Plans were made to treat the right mid ureteral stone with endoscopy on 09/28/2019. He did have a small aortic aneurysm and that was the reason for endoscopy over ESWL. His symptoms were controlled well enough to make that timing reasonable. This hospital stay was initiated for increased lethargy, some confusion but no overt increase in renal colicky symptoms. He was also recently diagnosed with hyponatremia. Yesterday his temperature at home was about 100.3 he was brought to the emergency room for further evaluation and treatment. ED work-up: 1. CT scan showed high-grade obstruction related to the right mid pole stone with no evidence of progression. Significant periureteral and perirenal stranding and probably some mild extravasation. 2. White count was normal 3. Urinalysis was bland with 5-10 white cells, 4-6 RBCs, nitrite negative. 4. Sodium was 126 and creatinine was 1.7. 5. Lactate was normal and there were no other overt signs of sepsis. Admitted for further evaluation and treatment including IV antibiotics, correction of hyponatremia, and assessment of current status of stone and whether or not the scheduled procedure can be followed through or just stenting would be more appropriate. This morning he is improved per his report. Still having some flank pain. T- max since admission was 99.7 but he is afebrile this morning. His sensorium seems to be baseline for him. We reviewed his options and have elected to continue IV fluids, IV antibiotics, parenteral pain medication as needed, and consideration for following through with scheduled surgery with attempt at definitive treatment of the stone. Also reviewed the possibility of stent placement for evidence of further clinical decline. Review of Systems Const: Reports: fever(s) and malaise; Denies: chills or body aches Eyes: Denies: change in vision or blurry vision ENMT: Denies: throat pain or odynophagia Card: Reports: syncope; Denies: chest pain, palpitations or swelling of feet/ankles Resp: Denies: dyspnea, productive cough, non-productive cough or wheezing GI: Reports: abdominal pain (Mild right upper quadrant); Denies: nausea, vomiting or change in bowel habits : Reports: flank pain (Consistent with renal colic) Musc: Reports: back pain; Denies: extremity swelling or joint warmth Skin/Breast: Denies: rash or pruritus Neuro: Reports: confusion (Mild, improved); Denies: headache(s) or weakness in extremities Psych: Reports: memory loss (Mild); Denies: anxiety or depression Endo: Denies: polyuria or polydipsia Ha/Lymph: Denies: easy bruising or easy bleeding All/Imm: Denies: urticaria Meds/Allergies Home Medications and Allergies Home Medications Medication Instructions Recorded Confirmed Last Taken Type apixaban 5 mg tablet 5 mg PO BID 09/23/19 09/26/19 09/23/19 History atorvastatin 40 mg tablet 40 mg PO DAILY 09/23/19 09/26/19 09/25/19 History famotidine 20 mg tablet 20 mg PO DAILY PRN 09/23/19 09/26/19 Unknown History levothyroxine 150 mcg capsule 150 mcg PO DAILY 09/23/19 09/26/19 09/26/19 History lisinopril 40 mg tablet 40 mg PO BID tab 09/23/19 09/26/19 09/26/19 History hydrocodone-acetaminophen 1 tab PO Q4H PRN 09/25/19 09/26/19 09/26/19 History amoxicillin-pot clavulanate 1 tab PO BID 09/26/19 09/26/19 09/26/19 History [Augmentin] nitroglycerin [Nitrostat] 0.4 mg SUBLINGUAL Q5M PRN 09/26/19 09/26/19 Unknown History pumpkin seed extract-soy germ [Azo 1 cap PO TID PRN 09/26/19 09/26/19 Unknown History Bladder Control] Allergies Allergy/AdvReac Type Severity Reaction Status Date / Time Sulfa (Sulfonamide Allergy NA Verified 09/26/19 16:12 Antibiotics) Current Medications Current Medications Generic Name Dose Route Start Last Admin Trade Name Freq PRN Reason Stop Dose Admin Famotidine 20 mg 09/26/19 21:51 09/26/19 23:37 Pepcid Tab PO 20 mg DAILY PRN Administration Acid Reflux Sodium Chloride 1,000 mls @ 50 mls/hr 09/26/19 21:51 09/26/19 23:37 Sodium Chloride 0.9% IV 50 mls/hr .Q20H LANE Administration PFSH Acute PFSH: Medical History AAA (abdominal aortic aneurysm) 3.4 cm infrarenal abdominal aortic aneurysm following up with Dr. Sprague Chronic anticoagulation A. fib CKD (chronic kidney disease), stage III Hyperlipidemia Hypothyroid Lung nodules Microscopic hematuria Prostatitis Renal calculi Right ureteral calculus Thrombocytopenia Follows up with Dr. Chun, isolated thrombocytopenia Ventricular trigeminy Surgical History Hx of shoulder surgery Hx of tonsillectomy S/P PTCA (percutaneous transluminal coronary angioplasty) Family History Mother CAD (coronary artery disease) Father CAD (coronary artery disease) Social History Smoking and tobacco status: never smoked Alcohol intake: current Alcohol intake frequency: holidays/special occasions only Adopted: No Caregiver/support person: No Lives independently: No Household members: spouse Marital status: Current occupational status: retired History of recent travel: No Vitals/I&O/Wt Last Vital Signs Temp 98.3 F 09/27/19 07:24 Pulse 82 09/27/19 07:24 Resp 18 09/27/19 07:24 BP 137/82 09/27/19 07:24 Pulse Ox 97 09/27/19 07:24 09/26/19 09/27/19 09/27/19 22:59 06:59 14:59 Intake Total 1050 / 1050 Output Total 50 / 50 Balance 1050 / 1050 -50 / -50 Weight last 48 hrs Weight 185 lb Physical Exam Const: COMMON NORMALS: no acute distress, alert and well nourished GENERAL APPEARANCE: well kempt and well developed ORIENTATION/CONSCIOUSNESS: not confused HENMT: COMMON NORMALS: normocephalic and atraumatic HEAD & SCALP: normocephalic and atraumatic Eye: COMMON NORMALS: conjunctivae normal and no scleral icterus CONJUNCTIVA: Yes conjunctivae normal Neck/C-Spine: COMMON NORMALS: full ROM GENERAL: Yes normal visual inspection Lymph: LYMPHATIC: no lymphedema noted Resp: COMMON NORMALS: normal respiratory effort EFFORT & INSPECTION: No labored and No Actively coughing Cardio: COMMON NORMALS: regular rate, regular rhythm and No murmurs present (Cardio) RATE: regular rate RHYTHM: regular rhythm : OTHER: Right CVA tenderness, nonsurgical abdomen Extremity: COMMON NORMALS: no clubbing, cyanosis or edema Neuro: COMMON NORMALS: no focal motor deficits SENSORIUM/ORIENTATION: Yes alert Psych: COMMON NORMALS: mental status grossly normal APPEARANCE: Yes grossly normal and Yes well kempt ATTITUDE: Yes calm and Yes engaged Skin: COMMON NORMALS: no rashes or lesions noted and no jaundice GENERAL SKIN EXAM: no rashes or lesions noted Data Micro: Micro: Microbiology 09/26/19 16:31 Blood Culture - Pr eliminary Blood SPECIMEN [facility] 09/26/19 16:36 Blood Culture - Pr eliminary Blood SPECIMEN [facility] A&P Assessment and plan (1) Right ureteral calculus: Large right mid ureteral calculus previously located for >a decade in his right midpole. Symptoms include right renal colic. Objective changes included elevated creatinine, hydronephrosis. Complicated by history of chronic prostatitis with increased risk for infectious complications. PLAN: 1. Clear liquids today. 2. Continue current plan for endoscopic treatment of the right ureteral stone tomorrow after rehydration, IV antibiotics etc. 3. Emergency intervention for evidence of progressive infection/obstructive pyelonephritis/sepsis. 4. Reviewed all the above with the patient in detail. Explained rationale. Status: Acute (2) Acute kidney injury: Creatinine 1.7 on admission. After hydration is decreased to 1.6. Status: Acute (3) Hydronephrosis of right kidney: Moderate to severe with periureteral and perirenal stranding consistent with obstructive changes. Status: Acute (4) Prostatitis: Years of typical symptoms with improvement on antibiotic therapy. Exacerbated by horseback riding. Status: Acute Qualifiers: Prostatitis type: chronic Qualified Code(s): N41.1 - Chronic prostatitis Consult Attestations Medical Necessity Statement: Increased risk for obstructive pyelonephritis although currently no evidence of sepsis. We will continue on IV antibiotics with close observation with consideration for completion of treatment of the right ureteral stone as scheduled for tomorrow or if necessary emergency stenting prior to that time for evidence of progressive infectious complications. 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
[2019-09-27 09:23] LABS: Sodium 134 mmol/L (136-145)
[2019-09-27] MEDS: cefTRIAXone 1,000 MG in sodium chloride 0.9% (plus) 50 ML 100 MG IV ×2 (09:29→09:30)
[2019-09-27] MEDS: levothyroxine 150 mcg Tablet PO (09:29)
[2019-09-27] MEDS: sodium chloride 0.9% 1,000 ML 50 ML IV (09:30)
[2019-09-27 10:48] VITALS: BP 129/72; PULSE 85; RESP 16; TEMP 36.8; O2SAT 96
--- NOTE | 2019-09-27 13:40 | P.PN_ITS ---
Subjective Subjective: Interval history: Chart reviewed, no leukocytosis, hemodynamically stable, T-max of 103.1 F yesterday, currently afebrile. Some improvement in renal function and hyponatremia. Imaging reviewed. Case discussed earlier this morning with Dr. Rene and will plan for OR tomorrow. Medications: Reviewed: Yes Medication Review Details: Active Medications Generic Name Dose Route Start Last Admin Trade Name Freq PRN Reason Stop Dose Admin Famotidine 20 mg 09/26/19 21:51 09/26/19 23:37 Pepcid Tab PO 20 mg DAILY PRN Administration Acid Reflux Hydromorphone HCl 2 mg 09/27/19 03:08 Dilaudid Inj IVP Q4H PRN PAIN Sodium Chloride 1,000 mls @ 50 ml s/hr 09/26/19 21:51 09/27/19 09:30 Sodium Chloride 0.9% IV 50 mls/hr .Q20H LANE Administration Ceftriaxone Sodium 1,000 mg/ 50 mls @ 100 mls/ hr 09/27/19 09:00 09/27/19 09:30 Sodium Chloride IV 100 mls/hr DAILY LANE Administration Protocol Levothyroxine Sodi um 150 mcg 09/27/19 09:00 09/27/19 09:29 Synthroid PO [address] Administration Ondansetron HCl 4 mg 09/26/19 21:51 Zofran IVP Q6H PRN NAUSEA AND VOMITI NG Sulfa (Sulfonamide Antibiotics) Allergy (Verified 09/26/19 16:12) NA Vitals/I&O/Wt Last Vital Signs Temp 98.2 F 09/27/19 10:48 Pulse 85 09/27/19 10:48 Resp 16 09/27/19 10:48 BP 129/72 09/27/19 10:48 Pulse Ox 96 09/27/19 10:48 09/26/19 09/27/19 09/27/19 22:59 06:59 14:59 Intake Total 1050 / 1050 915.834 / 915.834 Output Total 50 / 50 Balance 1050 / 1050 865.834 / 865.834 Weight last 48 hrs Weight 83.915 kg Physical Exam Const: COMMON NORMALS: no acute distress and patient oriented x3 GENERAL APPEARANCE: cooperative and comfortable ORIENTATION/CONSCIOUSNESS: Yes awake HENMT: COMMON NORMALS: normocephalic, atraumatic, hearing grossly normal bilaterally and moist oral mucous membranes HEAD & SCALP: normocephalic and atraumatic Eye: COMMON NORMALS: Equal, round and reactive pupils present, EOMs intact bilaterally and conjunctivae normal CONJUNCTIVA: Yes conjunctivae normal P UPIL: Yes Equal, round and reactive pupils present Neck/C-Spine: COMMON NORMALS: full ROM GENERAL: Yes normal visual inspection and Yes trachea midline Resp: COMMON NORMALS: normal respiratory effort, No retractions, No use of accessory muscles and clear to auscultation bilaterally EFFORT & INSPECTION: Yes able to speak in complete sentences, Yes symmetric chest movement and No t achypneic AUSCULTATION: clear to auscultation bilaterally Cardio: COMMON NORMALS: regular rate, regular rhythm, S1 normal heart sound present, S2 normal heart sound present and No murmurs present (Cardio) RATE: regular rate RHYTHM: regular rhythm HEART SOUNDS: S1 normal heart sound present and S2 normal heart sound present GI: COMMON NORMALS: Normal to inspection, nondistended, normoactive bowel sounds present, Soft to palpation and non-tender PALPATION: Yes Soft to palpation Extremity: COMMON NORMALS: normal to inspection, full ROM and no clubbing, cyanosis or edema; negative for no pedal edema Neuro: COMMON NORMALS: patient oriented x3, moves all extremities, no focal motor deficits, no sensory deficits noted and gait normal Psych: COMMON NORMALS: mental status grossly normal, Normal thought process present, cooperative, normal affect and speech normal SPEECH: Yes normal speech THOUGHT PROCESS: Normal thought process present Skin: COMMON NORMALS: no rashes or lesions noted, no jaundice, no petechiae and no mottling GENERAL SKIN EXAM: no rashes or lesions noted Data : 09/27/19 04:38 09/27/19 08:45 Micro: Microbiology 09/26/19 16:31 Blood Culture - Preliminary Blood SPECIMEN COLLECTED 09/26/19 16:36 Blood Culture - Preliminary Blood SPECIMEN COLLECTED A&P Assessment and plan (1) Right ureteral calculus: -noted on imaging, symptomatic (R CVA tenderness) -Urology consultation by Dr. Rene appreciated; plan for OR tomorrow -UA noted -on Ceftriaxone, IVF -pain control as needed Status: Acute (2) Ureterolithiasis: Status: Chronic (3) Pyelonephritis: -UA noted -f/u urine cx -on Ceftriaxone Status: Acute (4) Acute kidney injury: -renally dose meds, avoid nephrotoxins -on IVF hydration Status: Acute (5) Prostatitis: -has been on ciprofloxacin Status: Chronic Qualifiers: Prostatitis type: chronic Qualified Code(s): N41.1 - Chronic prostatitis (6) Hydronephrosis of right kidney: -per imaging, moderate to severe -Dr. Rene on board Status: Acute (7) Hypothyroidism: -on levothyroxine Status: Chronic Qualifiers: Hypothyroidism type: unspecified Qualified Code(s): E03.9 - Hypothyroidism, unspecified (8) A-fib: -on AC with Eliquis which is currently on hold for procedure Status: Chronic Qualifiers: Atrial fibrillation type: unspecified Qualified Code(s): I48.91 - Unspecified atrial fibrillation (9) Hyponatremia: -improving with IVF hydration -continue to monitor Status: Acute (10) AAA (abdominal aortic aneurysm): Status: Chronic Qualifiers: Presence of rupture: without rupture Qualified Code(s): I71.4 - Abdominal aortic aneurysm, without rupture (11) Thrombocytopenia: Status: Acute Additional A&P Information -very restless, snapped his IV tubing in half earlier today, wandering in hallway; sitter requested. Seems to be alert and oriented but I suspect he may have some degree of dementia as well -clear liquid diet -GI ppx with Famotidine -DVT ppx with SCDs, no AC due to need for procedure -Dispo: home -Code status: FULL code Attestations Medical Necessity Statement*: Patient requires hospitalization for continued IV fluid hydration, IV antibiotics, pending management of large right ureteral calculus. Time Spent in Patient Care: Greater than 35 minutes (>than 50% of time spent in counselling and/or direct pt care on unit) . 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
[2019-09-27 16:00] VITALS: BP 152/77; PULSE 93; RESP 16; TEMP 36.4; O2SAT 97
[2019-09-27] MEDS: docusate sodium 100 mg Capsule PO (18:58)
[2019-09-27] MEDS: magnesium hydroxide 30 mL UDC PO (18:58)
[2019-09-27 20:00] VITALS: BP 119/77; PULSE 75; RESP 18; TEMP 37.6; O2SAT 97
[2019-09-28] VITALS (19 sets, daily range): BP systolic 124–184; BP diastolic 73–99; PULSE 64–118; RESP 14–22; TEMP 36.3–37.2; O2SAT 92–100
--- NOTE | 2019-09-28 | SCC_ITS ---
Procedure Done: 1. Cystoscopy with right retrograde ureteropyelogram Right ureteroscopy, laser lithotripsy, stent 34.8 seconds of fluoroscopic guidance, for a cumulative dose of 8.09 mGy, was provided to Dr. Rene by the radiology department. C-arm images of the abdomen were saved for the patient's permanent record. [facility]
[2019-09-28] MEDS: sodium chloride 0.9% 1,000 ML 50 ML IV (00:31)
--- NOTE | 2019-09-28 00:33 | PC.NURSE ---
pt currently calm and sleeping. He showed mild confusion but it could be better described as aloof . Despite this he was orient to self, place and situation. No complaints of pain, but got some resistance from him about being connected to IV fluids. After lots of explanation for its purpose and reasoning, he reluctantly agreed.
[2019-09-28 04:47] LABS: Basophils % 0.3 %; Eosinophils # 0.1 10^3/uL (0.0-0.8); Eosinophils % 0.8 %; Hematocrit 32.2 % (42.0-52.0); Hemoglobin 10.8 g/dL (11.7-16.6); Lymphocytes # 0.6 10^3/uL (0.8-4.8); Mean Corpuscular HGB Conc 33.5 g/dL (30.0-36.0); Mean Corpuscular Hemoglobin 32.2 pg (28.0-34.0); Mean Corpuscular Volume 96.1 fL (80-94); Mean Platelet Volume 11.7 fL (7.4-10.4); Monocytes # 0.7 10^3/uL (0.2-0.9); Monocytes % 8.8 %; Neutrophils # 6.5 10^3/uL (1.8-7.7); Neutrophils % 81.6 %; Nucleated Red Blood Cells % 0 %; Platelet Count 112 10^3/cmm (130-400); Red Blood Count 3.35 10^6/uL (4.1-5.3); Red Cell Distribution Width 12.8 % (12.1-15.1)
[2019-09-28 05:02] LABS: Anion Gap 13.3 (5-19); Blood Urea Nitrogen 20 mg/dL (8-23); Calcium 8.3 mg/dL (8.5-10.5); Carbon Dioxide 22 mmol/L (22-29); Chloride 100 mmol/L (98-107); Glucose 93 mg/dL (65-115); Osmolality Calculated 268 mOsm/kg (285-295); Potassium 4.3 mmol/L (3.5-5.1); Sodium 131 mmol/L (136-145)
--- NOTE | 2019-09-28 07:24 | P.PN_ITS ---
Subjective Subjective: Interval history: No progressive infectious concerns. He has had a T-max of 99.7. Confusion yesterday. Required one-to-one sitter. No contraindications to proceeding with intervention today as scheduled. Creatinine 1.7. White count normal. Vitals/I&O/Wt Last Vital Signs Temp 97.8 F 09/28/19 04:00 Pulse 66 09/28/19 04:00 Resp 18 09/28/19 04:00 BP 125/78 09/28/19 04:00 Pulse Ox 96 09/28/19 04:00 09/27/19 09/28/19 09/28/19 22:59 06:59 14:59 Intake Total 200 / 1115.834 750.833 / 1866.667 Output Total 700 / 750 450 / 1200 Balance -500 / 365.834 300.833 / 666.667 Weight last 48 hrs Weight 185 lb Physical Exam Narrative: EXAM NARRATIVE: Alert. Confused. Not exactly sure where he is. Does remember details about the stone. No acute distress. Skin warm and dry. No labored respiration. No significant edema. Abdomen is soft. No abnormal bruising or bleeding. Data : 09/28/19 04:33 09/28/19 04:33 Micro: Microbiology 09/26/19 16:31 Blood Culture - Preliminary Blood NEGATIVE TO DATE 09/26/19 16:36 Blood Culture - Preliminary Blood NEGATIVE TO DATE A&P Assessment and plan (1) Hydronephrosis of right kidney: To the OR today for treatment of right ureteral stone with endoscopy. Status: Acute (2) Right ureteral calculus: Status: Acute Attestations Medical Necessity Statement*: See attending Coding Level of Care Code Acute Concrete Block Maker for Yaritza Fwlizeth Diagnoses Hydronephrosis of right kidney N13.30 Right ureteral calculus N20.1
--- NOTE | 2019-09-28 10:05 | PC.CHAP ---
Pastoral Care Encounter/Spiritual Assessment Type of Contact [] Declined reformatory attendant visit [] Patient/Family/Request visit [] Outpatient visit [] Follow-up visit [] Physician referral [] Code/Alert [x] Routine visit [] Staff referral [] Actively dying [] Patient sleeping [] Family support [] [] Out of room [] Palliative care [] [] Receiving care in room [] Pre-surgical visit [] Trauma [] Long length of stay [] ICU visit [] Other: Relational/Emotional Strength [] Patient feels connected with others/family/visitors/staff [] Distress [] Loneliness/isolation [] Abandonment Spirituality of Patient [] Person of Pao [] Attends Restorationism of their Pao [] Believes in Prayer [] Reads Bible or Spiritism materials [] There are Spiritual issues to be addressed Proposal 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 Interventions [x] Prayer [] Active listening [] Non-anxious presence [] Spiritual/emotional support [] Crisis/trauma care [] Spiritual counseling [] Bereavement support [] Provided bereavement packet [] Provided Bible/devotional materials [] Provided toy/stuffed animal, coloring book to patient or family member [] Provided Communion [] Anointing/[place] [] Salvation [x] Completed spiritual assessment [] Other: Impact on Illness or Injury [] Angry [] Fearful [] Anxious [] Often cries [] Exhaustion [] Unable to work [] Unable to attend pentecostal [] Unable to walk/stand [] Unable to read [] Unable to drive [] Unable to eat/drink [] Unable to sleep [] Unable to be with family [] Patient intubated [] Other: Summary dealing with kidney stones, possible surgery. Patient resting well. Time spent with patient 5 min
[2019-09-28] MEDS: sodium chloride 0.9% 1,000 ML 30 ML IV (12:35)
--- NOTE | 2019-09-28 12:43 | PC.NURSE ---
Pt down to OR via pt bed.
--- NOTE | 2019-09-28 13:18 | SC_ITS ---
WS: [id number] [facility] REASON FOR EXAM: Cystoscopy with right retrograde ureteropyelogram FINDINGS: Utilizing C-arm imaging retrograde catheter is inserted catheter seen in good position on t he right. SC/[facility] IMPRESSION: Retrograde study performed under fluoroscopic guidance.
[2019-09-28] MEDS: levofloxacin-dextrose 5 % 500 MG/100 ML PREMIX 100 MG IV (13:31)
--- NOTE | 2019-09-28 14:29 | P.PN_ITS ---
Subjective Subjective: Interval history: OR today for cystoscopy and ureteroscopy by Dr. Rene. Due to restlessness and confusion, requiring sitter overnight. Afebrile, hemodynamically stable, no leukocytosis, stable renal function. Resting in bed, does remember that he was not acting like himself last night and admits that he has these episodes at home as well. Denies pain/discomfort. Medications: Reviewed: Yes Medication Review Details: Active Medications Generic Name Dose Route Start Last Admin Trade Name Freq PRN Reason Stop Dose Admin Albuterol Sulfate 2.5 mg 09/28/19 12:19 Albuterol INHALATION ONCE PRN WHEEZING Docusate Sodium 100 mg 09/27/19 18:00 09/28/19 07:59 Colace PO Not Given BID LANE Famotidine 20 mg 09/26/19 21:51 09/26/19 23:37 Pepcid Tab PO 20 mg DAILY PRN Administration Acid Reflux Famotidine 20 mg 09/28/19 12:19 Pepcid Inj IVP ONCE PRN HEARTBURN Fentanyl 50 mcg 09/28/19 12:19 Sublimaze IVP Q10M PRN Preop Pain Fentanyl 100 mcg 09/28/19 12:19 Sublimaze IVP ONCE PRN Per anesthesia fo r block Hydromorphone HCl 2 mg 09/27/19 03:08 Dilaudid Inj IVP Q4H PRN PAIN Sodium Chloride 1,000 mls @ 50 ml s/hr 09/26/19 21:51 09/28/19 00:31 Sodium Chloride 0.9% IV 50 mls/hr .Q20H LANE Administration Ceftriaxone Sodium 1,000 mg/ 50 mls @ 100 mls/ hr 09/27/19 09:00 09/27/19 09:30 Sodium Chloride IV 100 mls/hr DAILY LANE Administration Protocol Sodium Chloride 1,000 mls @ 30 ml s/hr 09/28/19 12:30 09/28/19 12:35 Sodium Chloride 0.9% IV 09/29/19 12:29 30 mls/hr .Q24H LANE Administration Levofloxacin/Dextr ose 500 mg in 100 mls @ 100 mls/hr 09/28/19 13:31 09/28/19 14:00 Levaquin-D5w IV 09/28/19 14:30 Infused ONCE ONE Infusion Protocol Ipratropium Bromid e 0.5 mg 09/28/19 12:19 Atrovent Neb INHALATION ONCE PRN WHEEZING Levothyroxine Sodi um 150 mcg 09/27/19 09:00 09/28/19 07:59 Synthroid PO Not Given DAILY LANE Lidocaine HCl 1 ml 09/28/19 12:19 Lidocaine 2% Vis cous TOPICAL PRN PRN Anesthetic prior to IV start Lidocaine HCl 0.1 ml 09/28/19 12:19 Lidocaine 1% INTRADERMA 09/29/19 12:18 PRN PRN anesthetic prior to IV start Magnesium Hydroxid e 30 ml 09/27/19 15:54 09/27/19 18:58 Milk Of Magnesia PO 30 ml DAILY PRN Administration CONSTIPATION Metoclopramide HCl 10 mg 09/28/19 12:19 Reglan IVP ONCE PRN N/V if zofran ine ffective Midazolam HCl 2 mg 09/28/19 12:19 Versed IVP Q5M PRN Preop Anxiety Midazolam HCl 5 mg 09/28/19 12:19 Versed IVP ONCE PRN Per anesthesia fo r block Ondansetron HCl 4 mg 09/26/19 21:51 Zofran IVP Q6H PRN NAUSEA AND VOMITI NG Ondansetron HCl 4 mg 09/28/19 12:19 Zofran IVP Q5M PRN NAUSEA AND VOMITI NG Scopolamine 1 patch 09/28/19 12:19 Transderm-Scop TRANSDERMA ONCE PRN Nausea/ Vomiting Prophylaxis Sulfa (Sulfonamide Antibiotics) Allergy (Verified 09/26/19 16:12) NA Vitals/I&O/Wt Last Vital Signs Temp 98.4 F 09/28/19 12:35 Pulse 89 09/28/19 12:35 Resp 18 09/28/19 12:35 BP 159/93 09/28/19 12:35 Pulse Ox 97 09/28/19 12:35 09/27/19 09/28/19 09/28/19 22:59 06:59 14:59 Intake Total 200 / 1115.834 750.833 / 1866.667 340 / 340 Output Total 700 / 750 450 / 1200 Balance -500 / 365.834 300.833 / 666.667 340 / 340 Weight last 48 hrs Weight 83.915 kg Physical Exam Const: COMMON NORMALS: no acute distress and patient oriented x3 GENERAL APPEARANCE: cooperative and comfortable ORIENTATION/CONSCIOUSNESS: Yes awake HENMT: COMMON NORMALS: normocephalic, atraumatic, hearing grossly normal bilaterally and moist oral mucous membranes HEAD & SCALP: normocephalic and atraumatic Eye: COMMON NORMALS: Equal, round and reactive pupils present, EOMs intact bilaterally and conjunctivae normal CONJUNCTIVA: Yes conjunctivae normal PUPIL: Yes Equal, round and reactive pupils present Neck/C-Spine: COMMON NORMALS: full ROM GENERAL: Yes normal visual inspection and Yes trachea midline Resp: COMMON NORMALS: normal respiratory effort, No retractions, No use of accessory muscles and clear to auscultation bilaterally EFFORT & INSPECTION: Yes able to speak in complete sentences, Yes symmetric chest movement and No tachypneic AUSCULTATION: clear to auscultation bilaterally Cardio: COMMON NORMALS: regular rate, regular rhythm, S1 normal heart sound present, S2 normal heart sound present and No murmurs present (Cardio) RATE: regular rate RHYTHM: regular rhythm HEART SOUNDS: S1 normal heart sound present and S2 normal heart sound present GI: COMMON NORMALS: Normal to inspection, nondistended, normoactive bowel sounds present, Soft to palpation and non-tender PALPATION: Yes Soft to palpation : BLADDER/KIDNEY EXAM: Yes CVA tenderness on the right (minimal) Back/Pelvis: GENERAL BACK: Yes CVA tenderness Extremity: COMMON NORMALS: normal to inspection, full ROM, no clubbing, cyanosis or edema and no pedal edema Neuro: COMMON NORMALS: patient oriented x3, moves all extremities, no focal motor deficits, no sensory deficits noted and gait normal Psych: COMMON NORMALS: mental status grossly normal, Normal thought process present, cooperative, normal affect and speech normal SPEECH: Yes normal speech THOUGHT PROCESS: Normal thought process present Skin: COMMON NORMALS: no rashes or lesions noted, no jaundice, no petechiae a nd no mottling GENERAL SKIN EXAM: no rashes or lesions noted Data : 09/28/19 04:33 09/28/19 04:33 Micro: Microbiology 09/26/19 16:31 Blood Culture - Preliminary Blood NEGATIVE TO DATE 09/26/19 16:36 Blood Culture - Preliminary Blood NEGATIVE TO DATE A&P Assessment and plan (1) Right ureteral calculus: -noted on imaging, symptomatic (R CVA tenderness) -Urology consultation by Dr. Rene appreciated; plan for OR today, may include stent placement, ureteroscopy -UA noted -on Ceftriaxone, IVF -pain control as needed Status: Acute (2) Ureterolithiasis: Status: Chronic (3) Pyelonephritis: -UA noted -f/u urine cx, blood cx prelim negative -on Ceftriaxone Status: Acute (4) Acute kidney injury: -renally dose meds, avoid nephrotoxins -on IVF hydration -stable renal function, continue to monitor Status: Acute (5) Prostatitis: -has been on ciprofloxacin Status: Chronic Qualifiers: Prostatitis type: chronic Qualified Code(s): N41.1 - Chronic prostatitis (6) Hydronephrosis of right kidney: -per imaging, moderate to severe -Dr. Rene on board Status: Acute (7) Hypothyroidism: -on levothyroxine Status: Chronic Qualifiers: Hypothyroidism type: unspecified Qualified Code(s): E03.9 - Hypothyroidism, unspecified (8) A-fib: -on AC with Eliquis which is currently on hold for procedure Status: Chronic Qualifiers: Atrial fibrillation type: unspecified Qualified Code(s): I48.91 - Unspecified atrial fibrillation (9) Hyponatremia: -improving with IVF hydration -continue to monitor Status: Acute (10) AAA (abdominal aortic aneurysm): Status: Chronic Qualifiers: Presence of rupture: without rupture Qualified Code(s): I71.4 - Abdominal aortic aneurysm, without rupture (11) Thrombocytopenia: -platelet count stable, no bleeding Status: Chronic Additional A&P Information -sitter discontinued this AM as more appropriate; can resume if needed. Seems to be alert and oriented but I suspect he may have some degree of dementia as well -NPO for procedure -GI ppx with Famotidine -DVT ppx with SCDs, no AC due to need for procedure -Dispo: home -Code status: FULL code Attestations Medical Necessity Statement*: Patient requires hospitalization for continued IV antibiotic treatment, post-op care following stent placement, ureteroscopy secondary to R ureteral calculus with hydronephrosis. Time Spent in Patient Care: 16 - 35 minutes (>than 50% of time spent in counselling and/or direct pt care on unit) . Coding Level of Care Code Acute Rotary Planer Set Up Operator for Chg Fwd Diagnoses Right ureteral calculus N20.1 Ureterolithiasis N20.1 Pyelonephritis N12 Acute kidney injury N17.9 Prostatitis N41.1 Prostatitis type: chronic Hydronephrosis of right kidney N13.30 Hypothyroidism E03.9 Hypothyroidism type: unspecified A-fib I48.91 Atrial fibrillation type: unspecified Hyponatremia E87.1 AAA (abdominal aortic aneurysm) I71.4 Presence of rupture: without rupture Thrombocytopenia D69.6
--- NOTE | 2019-09-28 15:09 | PM.OP ---
Operative Report Date of procedure: September 28, 2019 Pre-op Diagnosis: Large right mid ureteral stone Post-op diagnosis: same Post-op Findings: Stone in the expected position. High-grade obstruction Procedure Done: 1. Cystoscopy with right retrograde ureteropyelogram Right ureteroscopy, laser lithotripsy, stent Implants: Right ureteral stent 6 x 30 cm double-pigtail without string Pathology: Do not fragments Surgeon: Edgard Anesthesia: General Estimated blood loss: Minimal Urine output: Not measured Complications: None Findings: 1. Stone partially impacted in the ureter with high-grade obstruction 2. Fragmented with 365 ?m homing laser fiber Condition: stable Disposition: PACU Brief History: Mr. Barraza is a delightful 79-year-old white male with a history of urolithiasis specifically a right mid mid renal stone known for many years that was recently diagnosed as having migrated into the proximal mid ureter with obstructive changes. The stone failed to pass and he was scheduled for surgery today. This weekend he developed fever and some concern for an infection and he was hospitalized for antibiotic therapy possible emergency stent. His infectious picture was stable and not progressive and for that reason we proceeded today with attempt at definitive therapy of the stone. Procedure: After routine preoperative evaluation examination and obtaining of informed consent he was taken to the operating suite on 09/28/2019 where general anesthesia was administered without difficulty after appropriate timeout was performed, SCDs confirmed to be functioning, preoperative antibiotics administered, beta-moni protocol confirmed. Prepped and draped in the usual sterile fashion in dorsal lithotomy position pain careful attention to avoiding pressure points. 21 [place] Islander cystoscope with 30 degree lens was introduced to the urethral meatus and advanced into the bladder under videoscopy. Bladder was systematically examined with no gross abnormalities identified. An 8 [place] Islander cone-tipped catheter was intubated into the right ureteral orifice for right retrograde ureteropyelogram which confirmed the location of the stone in the mid ureter. The stone did not allow immediate transfer of contrast proximal to but with some slight pressure the stone was dislodged migrated somewhat proximally and there was a significant amount of fluid expressed distal to the stone. The ureter proximal to the stone was much more dilated. Flexible tip guidewire was easily advanced up the right ureter and the distal ureter was then dilated with a 15 [place] Islander 4 cm balloon. Second guidewire was passed. The first was secured to the drapes as a safety wire the second wire was utilized as a working wire. A 24 cm ureteral access sheath was advanced over the working wire up the ureter easily to below the level of the stone. An offset semirigid ureteroscope was then passed up the sheath to the level of the stone and the stone was partially fragmented with a 365 ?m homing laser fiber. The area where the stone had been impacted was quite inflamed. After approximately third of the stone was fragmented there was some migration proximally which made it difficult to reach with the offset semirigid ureteroscope and for that reason the flexible ureteroscope was then passed and the stone was encountered in the renal pelvis. There was a large amount of sediment and inspissated fluid that was drained through the scope to help visualization. The stone was thoroughly fragmented with a 365 ?m holmium laser fiber and a lot of the debris was flushed from the renal pelvis through the flexible ureteroscope. Some the fragments were sent for evaluation. On final inspection there were no large fragments remaining most of it with sand. The sheath was backed down on the hub of the scope and the ureter was carefully inspected as the scope was withdrawn. No significant trauma beyond the impaction site. The cystoscope was then backloaded over the guidewire and a 6 [place] Islander by 30 cm double-pigtail stent was advanced over the guidewire through the cystoscope into appropriate position as confirmed via fluoroscopy and cystoscopy. Bladder was drained and the procedure completed. Tolerated the procedure well without complications and was awakened in the operating room and returned to the recovery in stable condition. Plans: 1. Continue inpatient status overnight for close observation 2. If no significant infectious return I think he will be a good candidate for discharge tomorrow for further convalescence at home in the care of his family. 3. We will plan on leaving the stent in at least a week probably 2 weeks before considering removal in my office and outpatient cystoscopy.
[2019-09-28 15:11] LABS: Osmolality Serum 268 mOsm/kg (278-305)
--- NOTE | 2019-09-28 15:20 | SUR.PHASEI ---
1520 IV FROM R. FOREARM REMOVED, CATHETER IN TACT, NO BLEEDING, DRESSING APPLIED
--- NOTE | 2019-09-28 18:54 | PM.DCS ---
Discharge Providers Date of Admission: 09/26/19 21:06 Date of Discharge: September 28, 2019 Attending Provider at Admission: Andreina Menchaca MD Attending Provider at Discharge: Joselin Wolf MD Primary Care Provider: Leeann Mcclendon MD Diagnoses at Discharge Discharge Diagnosis (1) Right ureteral calculus: Status: Acute Problem details: -noted on imaging, symptomatic (R CVA tenderness) -Urology consultation by Dr. Rene appreciated; s/p cystoscopy, R ureteral stent placement, ureteroscopy, laser lithotripsy -UA noted -on Ceftriaxone, IVF -pain control as needed (2) Ureterolithiasis: Status: Chronic (3) Pyelonephritis: Status: Acute Problem details: -UA noted -f/u urine cx, blood cx prelim negative -on Ceftriaxone (4) Acute kidney injury: Status: Acute Problem details: -renally dose meds, avoid nephrotoxins -on IVF hydration -stable renal function, continue to monitor (5) Prostatitis: Status: Chronic Qualifiers: Prostatitis type: chronic Qualified Code(s): N41.1 - Chronic prostatitis (6) Hydronephrosis of right kidney: Status: Acute Problem details: -per imaging, moderate to severe -Dr. Rene on board; s/p stent placement today (7) Hypothyroidism: Status: Chronic Problem details: -on levothyroxine Qualifiers: Hypothyroidism type: unspecified Qualified Code(s): E03.9 - Hypothyroidism, unspecified (8) A-fib: Status: Chronic Problem details: -on AC with Eliquis which is currently on hold for procedure Qualifiers: Atrial fibrillation type: unspecified Qualified Code(s): I48.91 - Unspecified atrial fibrillation (9) Hyponatremia: Status: Acute Problem details: -improving with IVF hydration -continue to monitor (10) AAA (abdominal aortic aneurysm): Status: Chronic Problem details: -3.4 cm infrarenal abdominal aortic aneurysm following up with Dr. Sprague Qualifiers: Presence of rupture: without rupture Qualified Code(s): I71.4 - Abdominal aortic aneurysm, without rupture (11) Thrombocytopenia: Status: Chronic Problem details: -Follows up with Dr. Chun, isolated thrombocytopenia -platelet count stable, no bleeding Reason for Visit Reason for Visit: FEVER Hospital Course Hospital Course: Patient was admitted to the medical surgical floor and started on empiric IV antibiotics secondary to pyelonephritis. He was found to have a right ureteral stone with hydronephrosis for which Dr. Rene was consulted. Patient is already well known to him and he had already planned on endoscopic intervention for right ureteral stone but in light of flank pain and fever agreed with plan to hydrate and treat with IV antibiotics prior to procedure. Patient had cystoscopy, right ureteral stent placement, ureteroscopy, laser lithotripsy done earlier today, procedure was uncomplicated and plan was for continued IV antibiotics for another 24 hours prior to decision on discharge. However upon return from procedure patient insisted on being discharged home despite encouragement to stay for additional treatment. I discussed this with Dr. Rene and given his presenting symptoms as well as concern for continued infection will prescribe oral antibiotics to complete treatment course with close follow-up with Dr. Rene. He has had no leukocytosis and has been afebrile for 24 hours. Renal function was closely monitored and as already mentioned he did receive IV fluid hydration, creatinine was stable and he has been voiding. He seems to have some underlying dementia and tends to wax and wane in terms of his mental status. He did require one-on-one monitoring overnight due to restlessness and confusion. He will also need to follow-up with his primary care provider within 1 week. He is to seek medical attention immediately should any of his symptoms return or worsen. Discharge Summary: -Patient to follow-up with his primary care provider within 1 week -Patient to continue to follow-up with Dr. Rene Physical Exam Const: COMMON NORMALS: no acute distress and patient oriented x3 GENERAL APPEARANCE: cooperative and comfortable ORIENTATION/CONSCIOUSNESS: Yes awake HENMT: COMMON NORMALS: normocephalic, atraumatic, hearing grossly normal bilaterally and moist oral mucous membranes HEAD & SCALP: normocephalic and atraumatic Eye: COMMON NORMALS: Equal, round and reactive pupils present, EOMs intact bilaterally and conjunctivae normal CONJUNCTIVA: Yes conjunctivae normal PUPIL: Yes Equal, round and reactive pupils present Neck/C-Spine: COMMON NORMALS: full ROM GENERAL: Yes normal visual inspection and Yes trachea midline Resp: COMMON NORMALS: normal respiratory effort, No retractions, No use of accessory muscles and clear to auscultation bilaterally EFFORT & INSPECTION: Yes able to speak in complete sentences, Yes symmetric chest movement and No tachypneic AUSCULTATION: clear to auscultation bilaterally Cardio: COMMON NORMALS: regular rate, regular rhythm, S1 normal heart sound present, S2 normal heart sound present and No murmurs present (Cardio) RATE: regular rate RHYTHM: regular rhythm HEART SOUNDS: S1 normal heart sound present and S2 normal heart sound present GI: COMMON NORMALS: Normal to inspection, nondistended, normoactive bowel sounds present, Soft to palpation and non-tender PALPATION: Yes Soft to palpation : BLADDER/KIDNEY EXAM: Yes CVA tenderness on the right (minimal) Back/Pelvis: GENERAL BACK: Yes CVA tenderness Extremity: COMMON NORMALS: normal to inspection, full ROM, no clubbing, cyanosis or edema and no pedal edema Neuro: COMMON NORMALS: patient oriented x3, moves all extremities, no focal motor deficits, no sensory deficits noted and gait normal Psych: COMMON NORMALS: mental status grossly normal, Normal thought process present, cooperative, normal affect and speech normal SPEECH: Yes normal speech THOUGHT PROCESS: Normal thought process present Skin: COMMON NORMALS: no rashes or lesions noted, no jaundice, no petechiae and no mottling GENERAL SKIN EXAM: no rashes or lesions noted Discharge Data Data Completed and Pending: Completed Studies During Hospitalization Category Date Time Status CT kidney stone 7 [id number] Stat Cat Scan 09/26/19 17:14 Completed XR chest 1V nimesh ble [id number] Stat Exams 09/26/19 16:20 Completed Pending at discharge Category Date Time Status C-arm Fluoroscopy [id number] Routine Exams 09/28/19 13:18 Taken Blood Culture Sta t Lab 09/26/19 16:31 Results Stone Analysis Ro utine Lab 09/28/19 15:00 Ordered Pathology: Surgic al [PTH] Routine Pth 09/28/19 15:05 Ordered Labs from last 24 hours 09/28/19 09/28/19 09/26/19 04:33 04:33 16:31 WBC 8.0 RBC 3.35 L Hgb 10.8 L Hct 32.2 L MCV 96.1 H MCH 32.2 MCHC 33.5 RDW 12.8 Plt Count 112 L MPV 11.7 H Neut % (Auto) 81.6 Lymph % (Auto) 8.0 Pershing % (Auto) 8.8 Eos % (Auto) 0.8 Baso % (Auto) 0.3 Neut # (Auto) 6.5 Lymph # (Auto) 0.6 L Pershing # (Auto) 0.7 Eos # (Auto) 0.1 Baso # (Auto) 0.0 Nucleated RBC % (a uto) 0 Nucleated RBCs # 0.0 Sodium 131 L Potassium 4.3 Chloride 100 Carbon Dioxide 22 Anion Gap 13.3 BUN 20 Creatinine 1.7 H Glucose 93 Serum Osmolality 268 L Calculated Osmolal ity 268 L Calcium 8.3 L Vitals: Last Vital Signs Temp 98.9 F 09/28/19 17:45 Pulse 94 09/28/19 17:45 Resp 20 H 09/28/19 17:45 BP 184/76 09/28/19 17:50 Pulse Ox 97 09/28/19 17:45 Discharge Plan Discharge Patient Disposition: Home, Self-Care Condition: Stable Prescriptions: New ciprofloxacin HCl 500 mg tablet 500 mg PO BID 7 Days Qty: 14 RF: 0 Continued Eliquis 5 mg tablet 5 mg PO BID RF: 0 lisinopril 40 mg tablet 40 mg PO BID RF: 0 atorvastatin [Lipitor] 40 mg tablet 40 mg PO DAILY RF: 0 famotidine 20 mg tablet 20 mg PO DAILY PRN (Reason: Acid Reflux) RF: 0 levothyroxine 150 mcg capsule 150 mcg PO DAILY RF: 0 hydrocodone-acetaminophen 5-325 mg Tablet 1 tab PO Q4H PRN (Reason: Pain) RF: 0 Nitrostat 0.4 mg Tablet, Sublingual 0.4 mg SUBLINGUAL Q5M PRN (Reason: Chest Pain) RF: 0 Azo Bladder Control 300 mg Capsule 1 cap PO TID PRN (Reason: BLADDER) RF: 0 Discontinued amoxicillin-pot clavulanate [Augmentin] 875-125 mg Tablet 1 tab PO BID RF: 0 Discharge Orders: Discharge Order (Routine); Ordered 09/28/19 Ordered By: Joselin Wolf Referrals: Leeann Mcclendon MD [Primary Care Provider] - 4-7 days (Post hospital discharge follow up. Treated for complicated UTI and had R ureteroscopy, laser lithotripsy and stent placement done by Dr. Rene.) Abdoul Rene MD [Physician] - 4-7 days (Post hospital discharge follow up. ) Discharge Diet: Cardiac Discharge Activity: Increase activity as tolerated Patient Instructions: Ciprofloxacin (By mouth), Cystoscopy (DC), Lithotripsy for Removal of Kidney Stones (DC) Discharge Date/Time: 09/28/19 19:54 Discharge Attestations Time Spent in Discharge Care*: less than 30 min Specific Discharge Activities: Specific discharge activities: educating patient, discussing with pcp/other providers, documenting/other paperwork and evaluating patient/reviewing data Status at Discharge: Cognitive status at discharge: mildly impaired cognition, Behavioral status at discharge: cooperative, Functional status at discharge: independent ambulation Overall status at discharge: patient is progressing back to baseline Quality Metrics Clinical Quality Measures During this hospital stay, did patient experience: None Coding Level of Care Code Acute Counselor Aid for Chg Fwd Exam Comprehensive Diagnoses Right ureteral calculus N20.1 Ureterolithiasis N20.1 Pyelonephritis N12 Acute kidney injury N17.9 Prostatitis N41.1 Prostatitis type: chronic Hydronephrosis of right kidney N13.30 Hypothyroidism E03.9 Hypothyroidism type: unspecified A-fib I48.91 Atrial fibrillation type: unspecified Hyponatremia E87.1 AAA (abdominal aortic aneurysm) I71.4 Presence of rupture: without rupture Thrombocytopenia D69.6
[2019-10-06 06:53] LABS: Stone Source URETERAL
== END 2019-09-28 19:54 | disposition home or self-care (01) | DRG 660 ==
LOC: ER 20:55 → MEDSURG 21:25
PROVIDERS: Family Medicine; Urology; Admitting Provider Internal Medicine; PCP Family Medicine; Visit Provider Family Medicine
PROC: 0TJB8ZZ Inspection of Bladder, Via Natural or Artificial Opening Endoscopic (ICD-10-PCS; CPT 52000; principal; 2019-09-28 13:15)
PROC: 0T768DZ Dilation of Right Ureter with Intraluminal Device, Via Natural or Artificial Opening Endoscopic (ICD-10-PCS; CPT 74420; 2019-09-28 13:15)
PROC: 0TJ98ZZ Inspection of Ureter, Via Natural or Artificial Opening Endoscopic (ICD-10-PCS; CPT 52351; 2019-09-28 13:15)
PROC: 0T768DZ Dilation of Right Ureter with Intraluminal Device, Via Natural or Artificial Opening Endoscopic (ICD-10-PCS; 2019-09-28 13:15)
PROC: 0T768DZ Dilation of Right Ureter with Intraluminal Device, Via Natural or Artificial Opening Endoscopic (ICD-10-PCS; CPT 50605; 2019-09-28 13:15)
DX: N20.1 Calculus of ureter (principal); N10 Acute pyelonephritis; N17.9 Acute kidney failure, unspecified; N13.30 Unspecified hydronephrosis; E87.1 Hypo-osmolality and hyponatremia; I48.20 Chronic atrial fibrillation, unspecified; N41.1 Chronic prostatitis; E03.9 Hypothyroidism, unspecified; Z79.01 Long term (current) use of anticoagulants; I71.4 Abdominal aortic aneurysm, without rupture; D69.6 Thrombocytopenia, unspecified; F03.90 Unspecified dementia, unspecified severity, without behavioral disturbance, psychotic disturbance, mood disturbance, and anxiety; N18.3 Chronic kidney disease, stage 3 (moderate); E78.5 Hyperlipidemia, unspecified; Z95.5 Presence of coronary angioplasty implant and graft; E86.0 Dehydration
CPT/HCPCS: 12345; 36415; 71045; 74018; 74176; 76000; 80048; 80053; 81001; 81003; 82009; 82365; 83605; 83690; 83930; 84295; 84443; 84550; 85025; 87040; 87804; 88300; 96375; 99283; C1725; C2625; J0696; J1956; J2370; J2405; J2704; J3010; J7030

== ENCOUNTER 2019-09-28 | Day surgery (SDC) | payer MEDICARE, OTHER, SELFPAY ==
[2019-09-25 15:07] VITALS: BMI 24.7
--- NOTE | 2019-09-28 12:25 | ANES.PREANE2 ---
Pre-Anesthetic Assessment Pre-Anesthetic Assessment: Height/Weight: Height 1.8 m Weight 80.286 kg Preop Diagnosis: Large right mid ureteral stone Proposed Procedure: Operation Date: 09/28/19 13:15 Proposed Procedures p Cystoscopy, Right: Retrograde, ureteroscopy, laser, stent. Proc Code 34352(Not Applicable) - MD guru Romero Retrograde Pyelogram(Right) - MD guru Romero Flexible Ureteroscopy(Not Applicable) - MD guru Romero Laser Lithotripsy(Not Applicable) - MD guru Romero Ureteral Stent Placement(Right) - Abdoul Rene MD Social: Social History: Alcohol (occ) and Tobacco (quit chew 25 year ago) Exam: Pre-Anes Outpt Exam: alert, oriented x 3 and clear to auscultation bilaterally Additional Exam Findings (including area of procedure): afib Airway: Submandibular: WNL Cervical ROM: WNL MP: 2 Dentition: Other (teeth ok) History/ROS: No significant history except as noted Pulmonary: Pulmonary: None reported CV/HEM: CV/HEM: HTN : : Chronic renal failure Hepatic: Hepatic: None reported GI: GI: GERD (occ) Metabolic: Metabolic: Hyperlipidemia and Thyroid Musc/skel: Musc/skel: None reported Neuropsych: Neuropsych: None reported Anesthetic Plan: ASA status: 3 Anesthesia: Anesthesia Evaluation and General Risk of > 500 ml blood loss (7ml/kg in children): No PFSH Anesthesia PFSH: Medical History AAA (abdominal aortic aneurysm) 3.4 cm infrarenal abdominal aortic aneurysm following up with Dr. Sprague Chronic anticoagulation A. fib CKD (chronic kidney disease), stage III Hyperlipidemia Hypothyroid Lung nodules Microscopic hematuria Prostatitis Renal calculi Right ureteral calculus Thrombocytopenia Follows up with Dr. Chun, isolated thrombocytopenia Ventricular trigeminy Surgical History Hx of shoulder surgery Hx of tonsillectomy S/P PTCA (percutaneous transluminal coronary angioplasty) Family History Mother CAD (coronary artery disease) Father CAD (coronary artery disease) Social History Smoking and tobacco status: never smoked Alcohol intake: current Alcohol intake frequency: holidays/special occasions only Adopted: No Caregiver/support person: No Lives independently: No Household members: spouse Marital status: Current occupational status: retired History of recent travel: No Data Anesthesia Cardiac Studies: No Data to Display
== END 2019-09-28 23:00 | disposition home or self-care (01) ==
LOC: OR 12-14 10:31
PROVIDERS: PCP Family Medicine; Visit Provider Urology
DX: Z01.818 Encounter for other preprocedural examination (principal); N20.1 Calculus of ureter; I12.9 Hypertensive chronic kidney disease with stage 1 through stage 4 chronic kidney disease, or unspecified chronic kidney disease; N18.3 Chronic kidney disease, stage 3 (moderate); K21.9 Gastro-esophageal reflux disease without esophagitis; E78.5 Hyperlipidemia, unspecified; I48.91 Unspecified atrial fibrillation; E03.9 Hypothyroidism, unspecified; Z79.01 Long term (current) use of anticoagulants; Z87.891 Personal history of nicotine dependence
CPT/HCPCS: J2001; J2370; J2704; J3010

== ENCOUNTER 2019-10-05 07:57 | Outpatient (CLI) | payer MEDICARE, OTHER, SELFPAY ==
--- NOTE | 2019-10-05 08:15 | XR_ITS ---
WS: [id number] ABDOMEN: SUPINE FILM HISTORY: URETERAL STONE COMPARISON: 09/23/2019 Normal bowel gas pattern. Degenerative changes in the LEFT SI joint. Right kidney: Double pigtail RIGHT ureteral stent remains in good position. No calcifications along t he course of the stent. 4 mm calcification over the mid RIGHT kidney. Left kidney: No renal or ureteral stone identified. XR/XR KUB [id number] IMPRESSION: 1. Double pigtail RIGHT ureteral stent remains in good position with no adjace nt calcifications. 2. Nonobstructing 4 mm calcification mid RIGHT renal pelvis.
== END 2019-10-05 07:58 | disposition home or self-care (01) ==
LOC: RAD 08:00
PROVIDERS: PCP Family Medicine; Visit Provider Urology
DX: N20.1 Calculus of ureter (principal); Z96.0 Presence of urogenital implants; N20.0 Calculus of kidney; N12 Tubulo-interstitial nephritis, not specified as acute or chronic
CPT/HCPCS: 74018; 81001

== ENCOUNTER 2020-03-01 09:46 | Outpatient (CLI) | payer MEDICARE, OTHER, SELFPAY ==
--- NOTE | 2020-03-01 09:54 | CT_ITS ---
WS: [id number] Exam: CT chest w con* [id number] Date/Time of Exam: 03/01/2020 10:10 AM Reason For Exam: LUNG NODULES DLP: 864.[address] scans at [facility] use at least one of these dose optimization techniques: automat ed exposure control; mA and/or kV adjustment per patient size (includes targeted exams where dose is matched to clinical indication); or iterative reconstruction. 100 mL of non-ionic contrast administer ed intravenously. Compared to prior study 02/10/2019. Stable appearing 7.6 mm nodule in the right lower lobe. Additional stable appearing subcentimeter nod ules are noted in the left upper lobe, left lower lobe and right middle lobes. There are no new suspi cious pulmonary nodules or masses. The lungs are fully expanded. There are no infiltrates. The airway is patent. The thoracic aorta is normal in caliber. The central pulmonary arteries are clear. No ple ural or pericardial effusion. No significant lymphadenopathy in the chest. Coronary artery calcificat ions are noted. No destructive bone lesions are chest wall defects. CT sections the upper abdomen dem onstrate a 2.7 cm left renal cyst. CT/CT chest w con* [id number] IMPRESSION: 1. Stable appearing bilateral subcentimeter pulmonary nodules since previous ex am 02/10/2019. No new suspicious nodules or masses identified. 2. No lymphadenopathy in the chest. 3. Additional nonacute findings as detailed above.
[2020-03-01 10:29] LABS: Blood Urea Nitrogen 10 mg/dL (8-23)
[2020-03-01] MEDS: iohexol 300 mg/mL 100 mL Btl IV (10:33)
== END 2020-03-01 09:47 | disposition home or self-care (01) ==
LOC: RADWPI 09:52
PROVIDERS: PCP Family Medicine; Visit Provider Thoracic Surgery (Cardiothoracic Vascular Surgery)
DX: R91.8 Other nonspecific abnormal finding of lung field (principal); R91.1 Solitary pulmonary nodule
CPT/HCPCS: 71260; 82565; 84520; Q9967

== ENCOUNTER 2020-04-06 08:05 | Outpatient (CLI) | payer MEDICARE, OTHER, SELFPAY ==
--- NOTE | 2020-04-06 08:15 | XRR_ITS ---
PROCEDURE INFORMATION: Exam: XR Abdomen, 1 View Exam date and time: 04/06/2020 8:25 AM Age: 80 years old Clinical indication: Condition or disease; Other: Ureterolithiasis TECHNIQUE: Imaging protocol: XR of the abdomen. Views: Frontal supine view of the abdomen. 1 View. COMPARISON: CR XR KUB [id number] 10/05/2019 8:06 AM FINDINGS: Gastrointestinal tract: Mild bowel dilatation and prominent stool. Intraperitoneal space: Punctate pelvic calcifications, presumably vascular in etiology. If urolithiasis is of clinical concern, CT may be of benefit for further evaluation. Organs: Partial obscuration of the renal fossa by bowel gas and stool. Bones/joints: Degenerative change. XR/XR KUB [id number] IMPRESSION: Mild bowel dilatation and prominent stool.
== END 2020-04-06 08:06 | disposition home or self-care (01) ==
PROVIDERS: PCP Family Medicine; Visit Provider Urology
DX: N20.1 Calculus of ureter (principal)
CPT/HCPCS: 74018

== ENCOUNTER 2020-05-02 09:07 | Outpatient (CLI) | payer MEDICARE, OTHER, SELFPAY ==
--- NOTE | 2020-05-02 09:17 | USCV_ITS ---
Red Barraza Age: 80 Gender: M : 1940 Exam Date: 05/02/2020 09:23 Ordering Phys: Rodrick Sprague MD (Andy) ([email or web address]) Technologist: Lucie Puente [place] [facility] [place]ication: KNOWN AAA HISTORY: Diameter (cm) AP x Transverse x Length Velocity (cm/s) Waveform Prox Aorta: 2.36 x 2.77 x 58.00 Mid Aorta: 1.80 x 1.67 x 72.00 Distal Aorta: 3.25 x 3.31 x 5.65 58.00 Right Iliac Prox: 1.00 x 1.09 x 0.00 Left Iliac Prox: 1.02 x 1.14 x 100.00 Stent Prox Landing x x Aneurysmal Sac Max x x Lt Lat Sac Dim Rt Lat Sac Dim Stent Dist Landing x x Right Iliac Stent x x Left Iliac Stent x x Right Renal Art Left Renal Art FINDINGS: Mild to moderate diffuse plaques in the abdominal aorta. Fusiform dilatation of the infrarenal aorta measuring 3.25 x 3.31 cm Near normal Doppler flow velocities in the iliac arteries bilaterally Normal common iliac artery dimensions CONCLUSIONS 1. Small fusiform aneurysm of the infrarenal aorta, measuring 3.25 x 3.31 cm. 2. Mild to moderate diffuse plaques in the abdominal aorta. 3. Normal proximal common iliac artery dimensions bilaterally. No previous studies are available for comparison Dr Amador Cassidy MD [facility] (Electronically Signed) Final Date: 02 May 2020 15:00 S
== END 2020-05-02 09:08 | disposition home or self-care (01) ==
LOC: US 09:09
PROVIDERS: PCP Family Medicine; Visit Provider Thoracic Surgery (Cardiothoracic Vascular Surgery)
DX: I71.4 Abdominal aortic aneurysm, without rupture (principal)
CPT/HCPCS: 76706

== ENCOUNTER 2020-05-10 12:07 | Outpatient (CLI) | payer MEDICARE, OTHER, SELFPAY ==
[2020-05-10 12:54] LABS: Basophils % 0.7 %; Eosinophils # 0.1 10^3/uL (0.0-0.8); Eosinophils % 2.2 %; Hematocrit 44.5 % (42.0-52.0); Hemoglobin 14.9 g/dL (11.7-16.6); Lymphocytes % 16.5 %; Mean Corpuscular HGB Conc 33.5 g/dL (30.0-36.0); Mean Corpuscular Hemoglobin 32.9 pg (28.0-34.0); Mean Corpuscular Volume 98.2 fL (80-94); Mean Platelet Volume 12.7 fL (7.4-10.4); Monocytes # 0.6 10^3/uL (0.2-0.9); Monocytes % 9.5 %; Neutrophils # 4.16 10^3/uL (1.8-7.7); Neutrophils % 70.6 %; Nucleated Red Blood Cells % 0 %; Platelet Count 114 10^3/cmm (130-400); Red Blood Count 4.53 10^6/uL (4.1-5.3); Red Cell Distribution Width 13.2 % (12.1-15.1); White Blood Count 5.9 10^3/uL (4.0-10.0)
== END 2020-05-10 12:08 | disposition home or self-care (01) ==
LOC: ONCMED 12:11
PROVIDERS: PCP Family Medicine; Visit Provider Internal Medicine Hematology & Oncology
DX: D69.6 Thrombocytopenia, unspecified (principal); R59.0 Localized enlarged lymph nodes
CPT/HCPCS: 36415; 85025

== ENCOUNTER 2020-05-17 05:36 | Outpatient (CLI) | payer MEDICARE, OTHER, SELFPAY ==
--- NOTE | 2020-05-17 09:11 | ONC FU_ITS ---
Dr. Chnu follow up note Patient: Red Barraza Unit #: [id number]: 1940 Dicatated By: Nel Chun M.D.Date of Visit:May 17, 2020 Onc Med Follow-up/Prog Note History of Present Illness: Mr. Red Barraza, is a 80-year-old gentleman with long-standing history of isolated mild thrombocytopenia since 2009, since then has been followed on a regular basis with no significant change in his mild but persistent thrombocytopenia, his platelet count has always stayed above 100,000.And on many occasion lab mentioned about platelet clumps Patient has no history of gross bleeding, no history of petechiae or ecchymosis except occasionally on the arms. No history of hematology evaluation the past. Denies any history of night sweats, weight loss, fever or chills, or abdominal fullness or splenomegaly or peripheral lymphadenopathy. Patient denies any alcohol use. No fever or chills, no nausea or vomiting, no abdominal pain, no diarrhea constipation, no history of recurrent infections. CT scan of chest abdomen pelvis done on 02/10/2019 showed subcentimeter mediastinal and hilar lymphadenopathy and 7.6 mm nodule in the periphery of right lower lobe and 4 mm nodule in the left upper lobe and several other subcentimeter nodules seen in the right upper lobe. No significant adenopathy in the abdomen or pelvis spleen size is normal Infrarenal abdominal aortic aneurysm at 3.4 cm. Was referred to Dr. Sprague and seen on 03/05/2019 and his recommendations were follow-up with CT scan of chest her lung nodule and CTA chest abdomen for aneurysm in 6 months.Which was done on March 01, 2020 which showed stable appearing bilateral subcentimeter pulmonary nodules since previous exam done on February 10, 2019 no new suspicious nodule or mass identified. No lymphadenopathy in the chest Since his last visit as per patient in September 2019 he was diagnosed with right ureteral stone and also had superimposed infection for which she was treated as inpatient, at that time he was evaluated by Dr. Rene and patient had double pigtail right ureteral stent placement. As per patient, has history of kidney stones on multiple occasions and now has changed his diet and being followed by [facility] for follow-up, denies any specific complaints no melena or hematochezia, no hemoptysis or hematemesis, no dysuria, no jaundice, no abdominal pain, no night sweats, no recurrent fever, no peripheral lymphadenopathy, no weight loss Medications: AZO Bladder Control/Go-Less 1 Capsule Oral daily, Eliquis 1 Tablet (of 5 mg) Oral b.i.d., Famotidine 1 Tablet (of 20 mg) Oral daily, Levothyroxine Sodium 1 Tablet (of 150 mcg) Oral daily, Lipitor 1 Tablet (of 40 mg) Oral daily, Lisinopril 1 Tablet (of 40 mg) Oral b.i.d. Allergies: Sulfa Antibiotics Review of Systems: Constitutional - Appetite is good and weight is stable. No fever, chills, hot flashes, or night sweats. Energy level is good, ENMT - No sinus congestion/drainage. No mouth sores. No sore throat or difficulty swallowing, Hematologic/Lymphatic - Pt reports easy bruisng, Respiratory - No shortness of breath. No cough. No pleuritic pain or hemoptysis, Cardiovascular - No angina pain. No palpitations, Gastrointestinal - No nausea or vomiting. Occasional heartburn. No diarrhea or constipation. No blood in the stool or black stools, Genitourinary (M) - Positive for dysuria, frequent nighttime urination, Musculoskeletal - Positive for joint pain, Neurologic - No headache or dizziness. No numbness/paresthesias or other focal neurologic symptoms, Psychiatric - No anxiety or depression. No insomnia. Vital Signs: Performed on May 17, 2020 08:20 Height - 71.00 in Weight - 178.6 lbs (LOW) BSA - 2.01 sq.m BMI - 24.91 Temperature - 95.8 F (LOW) Pulse - 95 /min Respiration - 212 /min (HIGH) Systolic - 83 mm(hg) (LOW) O2 Sat - 98 % Pain - 0 Performance Status: 0 - Fully active, able to carry on all predisease activities without restrictions. (ECOG) Physical Examination: ENMT - No mouth sores, no thrush, no jaundice, Respiratory - Lungs are clear to auscultation, Cardiovascular - Regular rate and rhythm of heart, Abdomen - Soft, bowel sounds present, Extremities - No visible edema. Lab/Imaging: Most recent lab results are not available for this patient. Impression: Isolated mild thrombocytopenia with a normal hemoglobin and platelets and differential Etiology, multifactorial including low-grade ITP versus underlying MDS or platelet clumping or medication induced.or underlying lymphoproliferative disorder but less likely Initially , observed in 2009, and on many occasion lab mentioned about platelets clumps ? Bilateral axillary lymphadenopathy CT scan of neck chest abdomen pelvis done on02/10/2019 showed no significant central lymphadenopathy or organomegaly and no evidence of axillary or cervical lymphadenopathy. Follow-up CT scan of chest done on March 01, 2020 showed stable appearing bilateral subcentimeter pulmonary nodules since previous exam on February 10, 2019 no new suspicious nodule or mass no lymphadenopathy Plan: Discussed with patient regarding his labs white blood count 5.9 hemoglobin 14.9 hematocrit 44.5 platelets 114,000 with normal differential Clinically, patient is doing well with no signs symptom suggestive of gross bleeding, his hemoglobin is normal and your white blood count is in normal range but persistent, stable isolated mild thrombocytopenia., At this point, we will continue to monitor unless there is a drop in his platelet count Patient return to clinic in 3 months with CBC Signed By: Nel Chun M.D. <<Signature on File>>
== END 2020-05-17 05:37 | disposition home or self-care (01) ==
LOC: ONCMED 05:38
PROVIDERS: PCP Family Medicine; Visit Provider Internal Medicine Hematology & Oncology
DX: D69.6 Thrombocytopenia, unspecified (principal); R59.0 Localized enlarged lymph nodes; Z79.899 Other long term (current) drug therapy
CPT/HCPCS: G0463

== ENCOUNTER 2020-08-24 11:01 | Outpatient (CLI) | payer MEDICARE, OTHER, SELFPAY ==
[2020-08-24 11:36] LABS: Basophils % 0.4 %; Eosinophils # 0.1 10^3/uL (0.0-0.8); Eosinophils % 1.6 %; Hematocrit 43.3 % (42.0-52.0); Hemoglobin 14.4 g/dL (11.7-16.6); Lymphocytes # 0.9 10^3/uL (0.8-4.8); Lymphocytes % 18.4 %; Mean Corpuscular HGB Conc 33.3 g/dL (30.0-36.0); Mean Corpuscular Hemoglobin 33.3 pg (28.0-34.0); Monocytes # 0.4 10^3/uL (0.2-0.9); Monocytes % 8.2 %; Neutrophils # 3.56 10^3/uL (1.8-7.7); Nucleated Red Blood Cells % 0 %; Platelet Count 116 10^3/cmm (130-400); Red Blood Count 4.33 10^6/uL (4.1-5.3); Red Cell Distribution Width 12.6 % (12.1-15.1)
--- NOTE | 2020-08-24 13:14 | ONC FU_ITS ---
Dr. Chun follow up note Patient: Red Barraza Unit #: [id number]: 1940 Dicatated By: Nel Chun M.D.Date of Visit:August 24, 2020 Onc Med Follow-up/Prog Note History of Present Illness: Mr. Red Barraza, is a 80-year-old gentleman with long-standing history of isolated mild thrombocytopenia since 2009, since then has been followed on a regular basis with no significant change in his mild but persistent thrombocytopenia, his platelet count has always stayed above 100,000.And on many occasion lab mentioned about platelet clumps Patient has no history of gross bleeding, no history of petechiae or ecchymosis except occasionally on the arms. No history of hematology evaluation the past. Denies any history of night sweats, weight loss, fever or chills, or abdominal fullness or splenomegaly or peripheral lymphadenopathy. Patient denies any alcohol use. No fever or chills, no nausea or vomiting, no abdominal pain, no diarrhea constipation, no history of recurrent infections. CT scan of chest abdomen pelvis done on 02/10/2019 showed subcentimeter mediastinal and hilar lymphadenopathy and 7.6 mm nodule in the periphery of right lower lobe and 4 mm nodule in the left upper lobe and several other subcentimeter nodules seen in the right upper lobe. No significant adenopathy in the abdomen or pelvis spleen size is normal Infrarenal abdominal aortic aneurysm at 3.4 cm. Was referred to Dr. Sprague and seen on 03/05/2019 and his recommendations were follow-up with CT scan of chest her lung nodule and CTA chest abdomen for aneurysm in 6 months.Which was done on March 01, 2020 which showed stable appearing bilateral subcentimeter pulmonary nodules since previous exam done on February 10, 2019 no new suspicious nodule or mass identified. No lymphadenopathy in the chest Since his last visit as per patient in September 2019 he was diagnosed with right ureteral stone and also had superimposed infection for which she was treated as inpatient, at that time he was evaluated by Dr. Rene and patient had double pigtail right ureteral stent placement. As per patient, has history of kidney stones on multiple occasions and now has changed his diet and being followed by [facility] for follow-up, denies any specific complaints, no fever chills, no nausea or vomiting, no diarrhea or constipation, no nosebleed or gum bleed, no petechia or ecchymosis, no melena or hematochezia, no hemoptysis or hematemesis, no hematuria, No night sweats, no weight loss, no peripheral lymphadenopathy or abdominal fullness Medications: AZO Bladder Control/Go-Less 1 Capsule Oral daily, Eliquis 1 Tablet (of 5 mg) Oral b.i.d., Famotidine 1 Tablet (of 20 mg) Oral daily, Levothyroxine Sodium 1 Tablet (of 150 mcg) Oral daily, Lipitor 1 Tablet (of 40 mg) Oral daily, Lisinopril 1 Tablet (of 40 mg) Oral b.i.d. Allergies: Sulfa Antibiotics Review of Systems: Review of Systems is not available for this patient. Vital Signs: Performed on August 24, 2020 12:51 Height - 71.00 in Weight - 175.2 lbs (LOW) BSA - 1.99 sq.m BMI - 24.44 Temperature - 97.2 F (LOW) Pulse - 54 /min (LOW) Respiration - 18 /min BP - 167/83 mm(hg) (HIGH) O2 Sat - 97 % Pain - 0 Performance Status: 0 - Fully active, able to carry on all predisease activities without restrictions. (ECOG) Physical Examination: ENMT - No mouth sores, no thrush, no jaundice, no lymphadenopathy, Respiratory - Lungs are clear to auscultation, Cardiovascular - Regular rate and rhythm of heart, Abdomen - Soft, bowel sounds present, Extremities - No visible edema. Lab/Imaging: Test performed on May 10, 2020 12:27 WBC 5.9 10 3/uL RBC 4.53 10 6/uL HGB 14.9 g/dL HCT 44.5 % MCV 98.2 fL MCH 32.9 pg MCHC 33.5 g/dL RDW 13.2 % Platelet Count 114 10 3/cmm MPV 12.7 fL Neutrophils 4.16 10 3/uL Lymphocytes 1.0 10 3/uL Monocytes 0.6 10 3/uL Eosinophils 0.1 10 3/uL Basophils 0.0 10 3/uL Neutrophil % 70.6 % Lymphocyte % 16.5 % Monocyte % 9.5 % Eosinophil % 2.2 % Basophils % 0.7 % NRBC % 0 % Impression: Isolated mild thrombocytopenia with a normal hemoglobin and platelets and differential Etiology, multifactorial including low-grade ITP versus underlying MDS or platelet clumping or medication induced.or underlying lymphoproliferative disorder but less likely Initially , observed in 2009, and on many occasion lab mentioned about platelets clumps ? Bilateral axillary lymphadenopathy CT scan of neck chest abdomen pelvis done on02/10/2019 showed no significant central lymphadenopathy or organomegaly and no evidence of axillary or cervical lymphadenopathy. Follow-up CT scan of chest done on March 01, 2020 showed stable appearing bilateral subcentimeter pulmonary nodules since previous exam on February 10, 2019 no new suspicious nodule or mass no lymphadenopathy Plan: Discussed with patient regarding his labs white blood count 5 hemoglobin 14.4 hematocrit 43.3 platelets 116,000 compared to 114,000 previously Clinically, patient doing well with no signs symptom suggestive of gross bleeding, his follow-up CBC shows hemoglobin/hematocrit within normal range, persistent mild thrombocytopenia but stable with a normal white blood cells. We will continue to monitor patient return to clinic in 4 months with CBC, patient was advised to call us in case there is any evidence of petechiae or ecchymosis or nosebleed or gum bleed or any gross bleeding. Signed By: Nel Chun M.D. <<Signature on File>>
== END 2020-08-24 11:02 | disposition home or self-care (01) ==
LOC: ONCMED 11:04
PROVIDERS: PCP Family Medicine; Visit Provider Internal Medicine Hematology & Oncology
DX: D69.6 Thrombocytopenia, unspecified (principal); R59.0 Localized enlarged lymph nodes; R91.1 Solitary pulmonary nodule; Z79.899 Other long term (current) drug therapy
CPT/HCPCS: 36415; 85025; 99214

== ENCOUNTER 2020-12-28 10:55 | Outpatient (CLI) | payer MEDICARE, OTHER, SELFPAY ==
[2020-12-28 11:31] LABS: Basophils % 0.3 %; Eosinophils # 0.1 10^3/uL (0.0-0.8); Eosinophils % 1.8 %; Hematocrit 46.6 % (42.0-52.0); Hemoglobin 15.8 g/dL (11.7-16.6); Lymphocytes % 16.1 %; Mean Corpuscular HGB Conc 33.9 g/dL (30.0-36.0); Mean Corpuscular Hemoglobin 33.1 pg (28.0-34.0); Mean Corpuscular Volume 97.7 fl (80-94); Mean Platelet Volume 12.4 fL (7.4-10.4); Monocytes # 0.4 10^3/uL (0.2-0.9); Monocytes % 6.6 %; Neutrophils # 4.52 10^3/uL (1.8-7.7); Neutrophils % 74.9 %; Nucleated Red Blood Cells % 0 %; Platelet Count 122 10^3/cmm (130-400); Red Blood Count 4.77 10^6/uL (4.1-5.3); Red Cell Distribution Width 12.4 % (12.1-15.1)
--- NOTE | 2020-12-29 15:28 | ONC FU_ITS ---
Dr. Chun follow up note Patient: Red Barraza Unit #: [id number]: 1940 Dicatated By: Nel Chun M.D.Date of Visit:Dec 28, 2020 Onc Med Follow-up/Prog Note History of Present Illness: Mr. Red Barraza, is a 80-year-old gentleman with long-standing history of isolated mild thrombocytopenia since 2009, since then has been followed on a regular basis with no significant change in his mild but persistent thrombocytopenia, his platelet count has always stayed above 100,000.And on many occasion lab mentioned about platelet clumps Patient has no history of gross bleeding, no history of petechiae or ecchymosis except occasionally on the arms. No history of hematology evaluation the past. Denies any history of night sweats, weight loss, fever or chills, or abdominal fullness or splenomegaly or peripheral lymphadenopathy. Patient denies any alcohol use. No fever or chills, no nausea or vomiting, no abdominal pain, no diarrhea constipation, no history of recurrent infections. CT scan of chest abdomen pelvis done on 02/10/2019 showed subcentimeter mediastinal and hilar lymphadenopathy and 7.6 mm nodule in the periphery of right lower lobe and 4 mm nodule in the left upper lobe and several other subcentimeter nodules seen in the right upper lobe. No significant adenopathy in the abdomen or pelvis spleen size is normal Infrarenal abdominal aortic aneurysm at 3.4 cm. Was referred to Dr. Sprague and seen on 03/05/2019 and his recommendations were follow-up with CT scan of chest her lung nodule and CTA chest abdomen for aneurysm in 6 months.Which was done on March 01, 2020 which showed stable appearing bilateral subcentimeter pulmonary nodules since previous exam done on February 10, 2019 no new suspicious nodule or mass identified. No lymphadenopathy in the chest Since his last visit as per patient in September 2019 he was diagnosed with right ureteral stone and also had superimposed infection for which she was treated as inpatient, at that time he was evaluated by Dr. Rene and patient had double pigtail right ureteral stent placement. As per patient, has history of kidney stones on multiple occasions and now has changed his diet and being followed by [facility] for follow-up, denies any specific complaints, no nausea or vomiting, no mouth sores, no melena or hematochezia no hemoptysis or hematemesis, nose nosebleed no gum bleed no petechia or ecchymosis Medications: AZO Bladder Control/Go-Less 1 Capsule Oral daily, Eliquis 1 Tablet (of 5 mg) Oral b.i.d., Famotidine 1 Tablet (of 20 mg) Oral daily, hydroCHLOROthiazide 1 Tablet (of 25 mg) Oral daily, Levothyroxine Sodium 1 Tablet (of 150 mcg) Oral daily, Lipitor 1 Tablet (of 40 mg) Oral daily, Lisinopril 1 Tablet (of 40 mg) Oral b.i.d. Allergies: Sulfa Antibiotics Review of Systems: Review of Systems is not available for this patient. Vital Signs: Performed on Dec 28, 2020 13:15 Height - 71.00 in Weight - 179 lbs (HIGH) BSA - 2.01 sq.m BMI - 24.97 Temperature - 97.1 F (LOW) Pulse - 103 /min (HIGH) Respiration - 18 /min BP - 149/89 mm(hg) (HIGH) O2 Sat - 98 % Pain - 0 Fatigue - 0 Performance Status: 0 - Fully active, able to carry on all predisease activities without restrictions. (ECOG) Physical Examination: ENMT - No mouth sores, no thrush, no jaundice, Respiratory - Lungs are clear to auscultation, Cardiovascular - Regular rate and rhythm of heart, Abdomen - Soft, bowel sounds present, Extremities - No visible edema. Lab/Imaging: Most recent lab results are not available for this patient. Impression: Isolated mild thrombocytopenia with a normal hemoglobin and platelets and differential Etiology, multifactorial including low-grade ITP versus underlying MDS or platelet clumping or medication induced.or underlying lymphoproliferative disorder but less likely Initially , observed in 2009, and on many occasion lab mentioned about platelets clumps ? Bilateral axillary lymphadenopathy CT scan of neck chest abdomen pelvis done on02/10/2019 showed no significant central lymphadenopathy or organomegaly and no evidence of axillary or cervical lymphadenopathy. Follow-up CT scan of chest done on March 01, 2020 showed stable appearing bilateral subcentimeter pulmonary nodules since previous exam on February 10, 2019 no new suspicious nodule or mass no lymphadenopathy Plan: Discussed with patient regarding his labs white blood count 6 hemoglobin 15.8 hematocrit 46.6 platelets 122,000 compared to 116,000 previously Clinically, patient doing well with no new signs symptoms history of gross bleeding, his hemoglobin is normal range, his isolated mild thrombocytopenia stable, will continue to monitor return to clinic in 6 months with CBC Signed By: Nel Chun M.D. <<Signature on File>>
== END 2020-12-28 10:56 | disposition home or self-care (01) ==
LOC: ONCMED 11:01
PROVIDERS: PCP Family Medicine; Visit Provider Internal Medicine Hematology & Oncology
DX: D69.6 Thrombocytopenia, unspecified (principal)
CPT/HCPCS: 36415; 85025; 99214

== ENCOUNTER 2021-04-11 12:42 | Outpatient (CLI) | payer MEDICARE, OTHER, SELFPAY ==
--- NOTE | 2021-04-11 12:45 | XR_ITS ---
WS: [id number] KUB, AP view, 04/11/2021 Clinical Data: UROLITHIASIS Comparison: KUB, 04/06/2020. Findings: No abnormal intraabdominal masses or calcifications are seen. There is no dilatated small bowel or ev idence of obstruction. Fecal material and bowel gas obscure detail over both kidneys. There are vascular calcifications. The re is osteoarthritic change of the pubic symphysis from a old injury. XR/XR KUB [id number] Impression: Negative KUB.
== END 2021-04-11 12:43 | disposition home or self-care (01) ==
LOC: RAD 12:43
PROVIDERS: PCP Family Medicine; Visit Provider Urology
DX: N20.9 Urinary calculus, unspecified (principal)
CPT/HCPCS: 74018; 81003

== ENCOUNTER 2021-05-24 10:56 | Outpatient (CLI) | payer MEDICARE, OTHER, SELFPAY ==
--- NOTE | 2021-05-24 11:00 | USCV_ITS ---
Red Barraza Age: 81 Gender: M : 1940 Exam Date: 05/24/2021 11:11 Ordering Phys: Rodrick Sprague MD (Andy) ([email or web address]) Technologist: TATI Exam Location: [facility] [place] Indication: KNOWN AAA HISTORY: KNOWN AAA Diameter (cm) AP x Transverse x Length Velocity (cm/s) Waveform Prox Aorta: 1.36 x 2.20 x 72.20 Triphasic Mid Aorta: 3.06 x 3.95 x 44.20 Triphasic Distal Aorta: 1.18 x 2.15 x 119.20 Triphasic Right Iliac Prox: 1.09 x 0.89 x 137.20 Biphasic Left Iliac Prox: 1.07 x 1.07 x 110.90 Monophasic Stent Prox Landing x x Aneurysmal Sac Max x x Lt Lat Sac Dim Rt Lat Sac Dim Stent Dist Landing x x Right Iliac Stent x x Left Iliac Stent x x Right Renal Art Left Renal Art FINDINGS: CONCLUSIONS Aneurysmal Mid Aorta measuring 3.0 x 3.9cm AP x transverse. Moderate arteriovascular disease within the abdominal aorta. No evidence of bilateral iliac aneurysm. Damion Childers MD (Electronically Signed) Final Date: 25 May 2021 09:57 S
== END 2021-05-24 10:57 | disposition home or self-care (01) ==
LOC: RAD 11:02
PROVIDERS: PCP Family Medicine; Visit Provider Thoracic Surgery (Cardiothoracic Vascular Surgery)
DX: I71.4 Abdominal aortic aneurysm, without rupture (principal)
CPT/HCPCS: 93978

== ENCOUNTER → 2021-05-25 10:08 | Outpatient (BNVA) | payer MEDICARE, OTHER, SELFPAY | PROVIDERS: PCP Family Medicine; Visit Provider Urology | DX: N41.9 Inflammatory disease of prostate, unspecified (principal); N20.9 Urinary calculus, unspecified; N41.1 Chronic prostatitis; R31.21 Asymptomatic microscopic hematuria | CPT/HCPCS: 81003 ==

== ENCOUNTER 2021-06-27 11:16 | Outpatient (CLI) | payer MEDICARE, OTHER, SELFPAY ==
[2021-06-27 12:24] LABS: Basophils % 0.7 %; Eosinophils # 0.1 10^3/uL (0.0-0.8); Eosinophils % 1.1 %; Hemoglobin 15.9 g/dL (11.7-16.6); Lymphocytes # 1.1 10^3/uL (0.8-4.8); Lymphocytes % 19.3 %; Mean Corpuscular HGB Conc 33.1 g/dL (30.0-36.0); Mean Corpuscular Hemoglobin 32.9 pg (28.0-34.0); Mean Corpuscular Volume 99.2 fl (80-94); Mean Platelet Volume 12.4 fL (7.4-10.4); Monocytes # 0.5 10^3/uL (0.2-0.9); Monocytes % 9.9 %; Neutrophils # 3.76 10^3/uL (1.8-7.7); Neutrophils % 68.6 %; Nucleated Red Blood Cells % 0 %; Platelet Count 119 10^3/cmm (130-400); Red Blood Count 4.84 10^6/uL (4.1-5.3); Red Cell Distribution Width 12.7 % (12.1-15.1); White Blood Count 5.5 10^3/uL (4.0-10.0)
--- NOTE | 2021-06-27 14:18 | ONC FU_ITS ---
Dr. Chun follow up note Patient: Red Barraza Unit #: [id number]: 1940 Dicatated By: Nel Chun M.D.Date of Visit:Jun 27, 2021 Onc Med Follow-up/Prog Note History of Present Illness: Mr. Red Barraza, is a 81year-old gentleman with long-standing history of isolated mild thrombocytopenia since 2009, since then has been followed on a regular basis with no significant change in his mild but persistent thrombocytopenia, his platelet count has always stayed above 100,000.And on many occasion lab mentioned about platelet clumps Patient has no history of gross bleeding, no history of petechiae or ecchymosis except occasionally on the arms. No history of hematology evaluation the past. Denies any history of night sweats, weight loss, fever or chills, or abdominal fullness or splenomegaly or peripheral lymphadenopathy. Patient denies any alcohol use. No fever or chills, no nausea or vomiting, no abdominal pain, no diarrhea constipation, no history of recurrent infections. CT scan of chest abdomen pelvis done on 02/10/2019 showed subcentimeter mediastinal and hilar lymphadenopathy and 7.6 mm nodule in the periphery of right lower lobe and 4 mm nodule in the left upper lobe and several other subcentimeter nodules seen in the right upper lobe. No significant adenopathy in the abdomen or pelvis spleen size is normal Infrarenal abdominal aortic aneurysm at 3.4 cm. Was referred to Dr. Sprague and seen on 03/05/2019 and his recommendations were follow-up with CT scan of chest her lung nodule and CTA chest abdomen for aneurysm in 6 months.Which was done on March 01, 2020 which showed stable appearing bilateral subcentimeter pulmonary nodules since previous exam done on February 10, 2019 no new suspicious nodule or mass identified. No lymphadenopathy in the chest Since his last visit as per patient in September 2019 he was diagnosed with right ureteral stone and also had superimposed infection for which she was treated as inpatient, at that time he was evaluated by Dr. Rene and patient had double pigtail right ureteral stent placement. As per patient, has history of kidney stones on multiple occasions and now has changed his diet and being followed by [facility] for follow-up, denies any specific complaints, no fever chills, no nausea or vomiting, no diarrhea or constipation, no melena hematochezia, no hemoptysis hematemesis, no hematuria or dysuria, no gum bleed or nosebleed Medications: AZO Bladder Control/Go-Less 1 Capsule Oral daily, Eliquis 1 Tablet (of 5 mg) Oral b.i.d., Famotidine 1 Tablet (of 20 mg) Oral daily, hydroCHLOROthiazide 1 Tablet (of 25 mg) Oral daily, Levothyroxine Sodium 1 Tablet (of 150 mcg) Oral daily, Lipitor 1 Tablet (of 40 mg) Oral daily, Lisinopril 1 Tablet (of 40 mg) Oral b.i.d. Allergies: Sulfa Antibiotics Review of Systems: Review of Systems is not available for this patient. Vital Signs: Vitals are not available for this patient. Performance Status: 0 - Fully active, able to carry on all predisease activities without restrictions. (ECOG) Physical Examination: ENMT - Sinuses are nontender. No oral exudates, ulcers, masses, thrush or mucositis. Oropharynx clear. Tongue normal, Respiratory - Lungs are clear to auscultation, Cardiovascular - Regular rate and rhythm of heart, Abdomen - Soft, bowel sounds present, extremities shows no edema but old healing ecchymosis involving upper extremities. Lab/Imaging: Most recent lab results are not available for this patient. Impression: Isolated mild thrombocytopenia with a normal hemoglobin and platelets and differential Etiology, multifactorial including low-grade ITP versus underlying MDS or platelet clumping or medication induced.or underlying lymphoproliferative disorder but less likely Initially , observed in 2009, and on many occasion lab mentioned about platelets clumps ? Bilateral axillary lymphadenopathy CT scan of neck chest abdomen pelvis done on02/10/2019 showed no significant central lymphadenopathy or organomegaly and no evidence of axillary or cervical lymphadenopathy. Follow-up CT scan of chest done on March 01, 2020 showed stable appearing bilateral subcentimeter pulmonary nodules since previous exam on February 10, 2019 no new suspicious nodule or mass no lymphadenopathy Plan: Discussed with patient regarding his labs white blood count 5.5 hemoglobin 15.9 hematocrit 48 platelets 119,000 compared to 122,000 previously Clinically, patient doing well with no new signs suggestive of acute or chronic bleeding, hemoglobin is stable and also shows persistent but mild and stable isolated thrombocytopenia. Again we will continue to monitor unless there is a worsening of thrombocytopenia then will consider intervention. He will return to clinic in 6 months with CBC Signed By: Nel Chun M.D. <<Signature on File>>
== END 2021-06-27 11:17 | disposition home or self-care (01) ==
PROVIDERS: PCP Family Medicine; Visit Provider Internal Medicine Hematology & Oncology
DX: D69.6 Thrombocytopenia, unspecified (principal); D69.1 Qualitative platelet defects; R59.0 Localized enlarged lymph nodes; Z79.899 Other long term (current) drug therapy
CPT/HCPCS: 36415; 85025; 99214

== ENCOUNTER → 2021-06-30 10:43 | Outpatient (BNVA) | payer MEDICARE, OTHER, SELFPAY | PROVIDERS: PCP Family Medicine; Visit Provider Thoracic Surgery (Cardiothoracic Vascular Surgery) | DX: I71.4 Abdominal aortic aneurysm, without rupture (principal) | CPT/HCPCS: 99213 ==

== ENCOUNTER 2021-08-29 09:12 | Outpatient (CLI) | payer MEDICARE, OTHER, SELFPAY ==
--- NOTE | 2021-08-29 09:28 | XRR_ITS ---
PROCEDURE INFORMATION: Exam: XR Abdomen Exam date and time: 08/29/2021 9:29 AM Age: 81 years old Clinical indication: Urolithiasis. Appointment to follow-up. TECHNIQUE: Imaging protocol: XR of the abdomen. Views: Frontal supine view of the abdomen. 1 View. COMPARISON: CR XR KUB [id number] 04/11/2021 12:50 PM FINDINGS: Gastrointestinal tract: No evidence of small-bowel obstruction. Intraperitoneal space: No gross free air. Organs: The renal shadows are partially obscured by bowel gas/stool. No gross renal or ureteral stone is seen. Vasculature: Probable phlebolith in the left pelvis. Atherosclerotic arterial calcifications are seen. Bones/joints: No gross acute fracture. XR/XR KUB [id number] IMPRESSION: 1. The renal shadows are partially obscured by bowel gas/stool. 2. No gross renal or ureteral stone is seen.
== END 2021-08-29 09:13 | disposition home or self-care (01) ==
LOC: RAD 09:21
PROVIDERS: PCP Family Medicine; Visit Provider Urology
DX: N20.9 Urinary calculus, unspecified (principal); N41.1 Chronic prostatitis; R31.21 Asymptomatic microscopic hematuria
CPT/HCPCS: 74018; 81003; 99213

== ENCOUNTER → 2021-10-06 08:50 | Outpatient (BNVA) | payer MEDICARE, OTHER, SELFPAY | PROVIDERS: PCP Family Medicine; Visit Provider Urology | DX: N20.0 Calculus of kidney (principal); N41.1 Chronic prostatitis; R31.21 Asymptomatic microscopic hematuria; N30.80 Other cystitis without hematuria | CPT/HCPCS: 52000; 81003; 87086; 99214 ==

== ENCOUNTER 2022-01-09 11:24 | Outpatient (CLI) | payer MEDICARE, OTHER, SELFPAY ==
--- NOTE | 2022-01-09 11:41 | CT_ITS ---
WS: [id number] CT ABDOMEN AND PELVIS WITH AND WITHOUT CONTRAST HISTORY: Asymptomatic mircoscopic hematuria TECHNIQUE: Unenhanced 5 mm axial imaging first performed through the abdomen. Post contrast imaging t hrough the abdomen and pelvis. Oral contrast has been provided. Sagittal and coronal reformats are s ubmitted. All CT scans at [facility] use at least one of these dose optimization techniques: automated exposure control; mA and/or kV adjustment per patient size (includes targeted exams where d ose is matched to clinical indication); or iterative reconstruction. CONTRAST: Omnipaque 350; 80 mL IV. DLP: 3489.93 mGy.cm COMPARISON: 09/26/2019 Motion artifact at the lung bases. Benign granuloma RIGHT lower lobe. Normal size heart. RIGHT kidney: Normal size kidney with mild perinephric stranding. No renal calcification. Several sma ll cortical cysts the largest measures 16 mm from the upper pole. Additional cortical hypodensities a re too small to characterize. No solid mass. No uroepithelial lesion. Ureter is incompletely opacifie d. LEFT kidney: Normal size kidney with perinephric stranding. No renal obstruction. There are several l ow-attenuation masses which have been present since 09/26/2019. The largest measures 25 mm. Hyperdense nonenhancing 7 mm nodule superior pole. One of the low-attenuation masses contains calcification. No ne of these have increased in size. No uroepithelial lesion. No solid mass. Normally distended bladder. No bladder calcification or wall enhancement. Normal appearance of the liver and spleen. Gallbladder is not identified. Mild fatty replacement of t he pancreas. Atherosclerosis aorta. 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 No ascites or adenopathy. Normal appearance of the stomach and small bowel. No colon obstruction. The appendix is not visualized. Small hydrocele. No bone destruction. CT/CT abdomen pelvis wo/w [id number] IMPRESSION: 1. No renal calcification or hydronephrosis. 2. Bilateral renal cysts. Some of these are complex cysts but no increase in s ize since 09/26/2019. 3. No uroepithelial lesion. 4. Very mild bladder wall thickening may be due to underdistention or outlet o bstruction. 5. Abdominal aortic aneurysm 3.7 cm maximum diameter.
== END 2022-01-09 11:25 | disposition home or self-care (01) ==
LOC: RAD 11:28
PROVIDERS: PCP Family Medicine; Visit Provider Urology
DX: N30.80 Other cystitis without hematuria (principal); N20.9 Urinary calculus, unspecified; R31.21 Asymptomatic microscopic hematuria; I71.4 Abdominal aortic aneurysm, without rupture
CPT/HCPCS: 74178; 99213; Q9967

== ENCOUNTER → 2022-01-10 15:38 | Outpatient (BNVA) | payer MEDICARE, OTHER, SELFPAY | PROVIDERS: PCP Family Medicine; Visit Provider Urology | DX: N20.9 Urinary calculus, unspecified (principal); R31.21 Asymptomatic microscopic hematuria; N20.0 Calculus of kidney; N30.80 Other cystitis without hematuria; I71.4 Abdominal aortic aneurysm, without rupture | CPT/HCPCS: 81003 ==

== ENCOUNTER 2022-06-05 11:48 | Outpatient (CLI) | payer MEDICARE, OTHER, SELFPAY ==
--- NOTE | 2022-06-05 12:00 | USCV_ITS ---
Red Barraza Age: 82 Gender: M : 1940 Exam Date: 06/05/2022 12:02 Ordering Phys: Rodrick Sprague MD (Andy) ([email or web address]) Technologist: LILIAN Exam Location: [facility] [place] Indication: AAA HISTORY: Diameter (cm) AP x Transverse x Length Velocity (cm/s) Waveform Prox Aorta: 1.85 x 2.16 x 87.00 Mid Aorta: 1.76 x 1.92 x 84.30 Distal Aorta: 3.69 x 3.66 x 4.51 47.30 Right Iliac Prox: 1.16 x 1.69 x 125.60 Left Iliac Prox: 1.35 x 1.86 x 124.60 Stent Prox Landing x x Aneurysmal Sac Max x x Lt Lat Sac Dim Rt Lat Sac Dim Stent Dist Landing x x Right Iliac Stent x x Left Iliac Stent x x Right Renal Art Left Renal Art FINDINGS: CONCLUSIONS Mid to Distal AAA measuring 3.6 x 3.6 x 4.5cm. This measures slightly larger compared to 2021. Normal iliac arteries Damion Childers MD (Electronically Signed) Final Date: 05 June 2022 16:10 S
== END 2022-06-05 11:49 | disposition home or self-care (01) ==
LOC: RAD 11:48
PROVIDERS: PCP Family Medicine; Visit Provider Thoracic Surgery (Cardiothoracic Vascular Surgery)
DX: I71.40 Abdominal aortic aneurysm, without rupture, unspecified (principal)
CPT/HCPCS: 93978

== ENCOUNTER → 2022-06-21 09:16 | Outpatient (BNVA) | payer MEDICARE, OTHER, SELFPAY | PROVIDERS: PCP Family Medicine; Visit Provider Thoracic Surgery (Cardiothoracic Vascular Surgery) | DX: I71.40 Abdominal aortic aneurysm, without rupture, unspecified (principal); R09.89 Other specified symptoms and signs involving the circulatory and respiratory systems | CPT/HCPCS: 99213 ==

== ENCOUNTER → 2022-07-10 10:48 | Outpatient (BNVA) | payer MEDICARE, OTHER, SELFPAY | PROVIDERS: PCP Family Medicine; Visit Provider Urology | DX: N30.80 Other cystitis without hematuria (principal); N41.1 Chronic prostatitis; N20.9 Urinary calculus, unspecified | CPT/HCPCS: 51798; 81003; 99213 ==

== ENCOUNTER 2022-09-05 10:14 | Outpatient (CLI) | payer MEDICARE, OTHER, SELFPAY ==
--- NOTE | 2022-09-05 10:45 | USCV_ITS ---
Red Barraza Age: 82 Gender: M : 1940 Exam Date: 09/05/2022 10:56 Ordering Phys: Rodrick Sprague [place] (Andy) [email or web address] [place] Technologist: CT Exam Location: [facility] [place] Indication: stenosis Risk Factors: Previous Vascular Surgery: Right Brachial BP: / Left Brachial BP: / Right Left Velocity (cm/s) Spectral Plaque Velocity (cm/s) Spectral Plaque Syst/Diast Broadening Syst/Diast Broadening 53.90/ 15.10 Prox CCA 61.10 / 18.00 48.60/ 13.40 Mid CCA 66.60 / 26.40 44.70/ 12.90 Distal CCA 53.90 / 21.60 60.30/ 18.20 Prox ICA 99.80 / 29.80 39.80/ 13.60 Mid ICA 57.20 / 14.20 57.20/ 20.30 Distal ICA 42.80 / 21.20 43.10 ECA 53.80 1.12 ICA/CCA 1.50 Antegrade Vertebral Antegrade 25.80/ 11.70 cm/s 38.30/ 10.10 cm/s Bi Subclavian Bi 78.20 95.20 CONCLUSIONS Right ICA stenosis <50%. Moderate calcified atheromatous plaque right carotid bulb/ICA. Left ICA stenosis <50%. Moderate calcified atheromatous plaque left carotid bulb/ICA. Normal antegrade Doppler flow noted in the right vertebral artery. Normal antegrade Doppler flow noted in the left vertebral artery. Damion Childers MD (Electronically Signed) Final Date: 05 Sep 2022 13:37 S
== END 2022-09-05 10:15 | disposition home or self-care (01) ==
LOC: RAD 10:16
PROVIDERS: PCP Family Medicine; Visit Provider Thoracic Surgery (Cardiothoracic Vascular Surgery)
DX: I65.23 Occlusion and stenosis of bilateral carotid arteries (principal)
CPT/HCPCS: 93880

== ENCOUNTER 2022-09-21 09:42 | Outpatient (CLI) | payer MEDICARE, OTHER, SELFPAY ==
--- NOTE | 2022-09-21 10:15 | XR_ITS ---
WS: [id number] Right hand, 3 views, 09/21/2022 Clinical Data: RESIDUAL OF FX Comparison: None. Findings: No fractures or dislocations are seen. The soft tissues are unremarkable. There is osteoa rthritis of the right thumb MCP joint and the right second MCP joint. 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
--- NOTE | 2022-09-21 10:15 | XR_ITS ---
WS: [id number] Right shoulder, 2 views, 09/21/2022 Clinical Data: R SHOULDER PAIN Comparison: None. Findings: No fractures or dislocations are seen. The AC joint shows mild osteoarthritic narrowing. The adjacent right clavicle, right scapula and ribs are normal. The soft tissues are unremarkable. XR/XR shoulder RT min 2V* [id number] Impression: 1. Minimal osteoarthritis of the right AC joint. 2. Negative right glenohumeral joint.
== END 2022-09-21 09:43 | disposition home or self-care (01) ==
LOC: RAD 09:55
PROVIDERS: PCP Family Medicine; Visit Provider Nurse Practitioner Family
DX: M25.511 Pain in right shoulder (principal); M25.541 Pain in joints of right hand; M19.011 Primary osteoarthritis, right shoulder; M19.09 Primary osteoarthritis, other specified site
CPT/HCPCS: 73030; 73130

== ENCOUNTER → 2022-09-27 13:43 | Outpatient (BNVA) | payer MEDICARE, OTHER, SELFPAY | PROVIDERS: PCP Family Medicine; Visit Provider Thoracic Surgery (Cardiothoracic Vascular Surgery) | DX: I71.43 Infrarenal abdominal aortic aneurysm, without rupture (principal); R09.89 Other specified symptoms and signs involving the circulatory and respiratory systems | CPT/HCPCS: 99213 ==

== ENCOUNTER 2022-11-12 13:34 | Emergency (ER) | payer MEDICARE, OTHER, SELFPAY ==
[2022-11-12 14:23] VITALS: BP 104/64; PULSE 63; RESP 14; TEMP 36.6; O2SAT 98; BMI 24.5
--- NOTE | 2022-11-12 14:59 | CT_ITS ---
WS: [id number] CT HEAD NONCONTRAST HISTORY: fall, forehead trauma, on eliquis TECHNIQUE: Contiguous axial imaging performed through the brain in 2.5 mm imaging. Bone and soft tiss ue windows. Sagittal and coronal reformats reviewed. All CT scans at [facility] use at least one of these dose optimization techniques: automated exposure control; mA and/or kV adjustment per pa tient size (includes targeted exams where dose is matched to clinical indication); or iterative recon struction. DLP: 1338.24 mGy.cm COMPARISON: 03/23/2017 No acute intracranial hemorrhage, midline shift or mass effect. Moderate atrophy with moderate to severe small vessel ischemic changes. Ventricles: Mild ventriculomegaly on the basis of atrophy. No inferior displacement of the cerebellar tonsils. Paranasal sinuses: As visualized are clear. Mastoid air cells: Well pneumatized. Calvarium and scalp: No skull fracture. Small scalp hematoma over the RIGHT frontal region. CT/CT head wo con* [id number] IMPRESSION: 1. No acute intracranial hemorrhage or edema. 2. Moderate atrophy with moderate to severe small vessel ischemic changes. 3. RIGHT frontal scalp hematoma.
[2022-11-12 15:00] VITALS: BP 129/75; PULSE 62; RESP 18; O2SAT 99
--- NOTE | 2022-11-12 15:03 | W.ED.FALL ---
HPI - Fall General: Chief Complaint: Fall Stated Complaint: fall, wound on forehead, arm and knee Time Seen by Provider: 11/12/22 14:56 History of Present Illness: Patient presents to the ER status post fall this morning of landing on his head first into the gravel. Patient does have a significant abrasion to his right forehead region patient is on Eliquis. Patient does have Alzheimer disease. Patient's not complaining of any symptoms at this time. is at bedside and helps with the history secondary to patient having significant Alzheimer's disease. Review of Systems General: Reports: 10 or more systems reviewed and unremarkable except in HPI and below PFSH ED PFSH: Medical History A-fib -on AC with Eliquis which is currently on hold for procedure AAA (abdominal aortic aneurysm) -3.4 cm infrarenal abdominal aortic aneurysm following up with Dr. Sprague Chronic anticoagulation A. fib Chronic prostatitis CKD (chronic kidney disease), stage III Hyperlipidemia Hypothyroid Hypothyroidism -on levothyroxine Lung nodules Microscopic hematuria Prostatitis Renal calculi Right ureteral calculus Thrombocytopenia -Follows up with Dr. Chun, isolated thrombocytopenia -platelet count stable, no bleeding Ventricular trigeminy Surgical History Hx of shoulder surgery Hx of tonsillectomy S/P PTCA (percutaneous transluminal coronary angioplasty) Family History Mother , at age 63 CAD (coronary artery disease) Father , at age 77 CAD (coronary artery disease) Social History Smoking and tobacco status: never smoked Alcohol intake: current Alcohol intake frequency: holidays/special occasions only Substance/Drug Use: unknown Adopted: No Caregiver/support person: No Lives independently: No Household members: spouse Marital status: Current occupational status: retired Physical Exam Const: COMMON NORMALS: no acute distress, average body habitus, healthy appearing, alert and well nourished HENMT: COMMON NORMALS: normocephalic, hearing grossly normal bilaterally, Normal external nose present and moist oral mucous membranes; head/scalp not atraumatic HEAD & SCALP: normocephalic; not atraumatic NOSE: Normal external nose present Eye: COMMON NORMALS: Equal, round and reactive pupils present, EOMs intact bilaterally and no scleral icterus PUPIL: Yes Equal, round and reactive pupils present Neck/C-Spine: COMMON NORMALS: full ROM, no lymphadenopathy, supple, no meningeal signs, no JVD and Thyroid normal THYROID: Thyroid normal Chest: COMMONS NORMALS: normal inspection of the chest and normal palpation of entire chest wall Resp: COMMON NORMALS: normal respiratory effort, No retractions, No use of accessory muscles and clear to auscultation bilaterally AUSCULTATION: clear to auscultation bilaterally Cardio: COMMON NORMALS: no JVD, regular rate, regular rhythm, S1 normal heart sound present, S2 normal heart sound present, No gallops present (Cardio), No clicks present (Cardio), No murmurs present (Cardio) and No rub (Cardio) RATE: regular rate RHYTHM: regular rhythm HEART SOUNDS: S1 normal heart sound present and S2 normal heart sound present GI: COMMON NORMALS: Normal to inspection, nondistended, normoactive bowel sounds present, Soft to palpation, non-tender, No hepatosplenomegaly present and no masses PALPATION: Yes Soft to palpation and Yes No hepatosplenomegaly present : COMMON NORMALS: Yes no CVA tenderness BLADDER/KIDNEY EXAM: Yes no CVA tenderness Back/Pelvis: COMMON NORMALS: no CVA tenderness Neuro: SENSORIUM/ORIENTATION: Yes alert MENINGEAL SIGNS: Yes no meningeal signs Course Vital Signs: Vital signs: Vital Signs Temperature 97.9 F 11/12/22 14:23 Pulse Rate 63 11/12/22 14:23 Respiratory Rate 14 11/12/22 14:23 Blood Pressure 104/64 11/12/22 14:23 Pulse Oximetry 98 11/12/22 14:23 Oxygen Delivery Me thod Room Air 11/12/22 14:23 MDM - Fall Medical Decision Making Patient presents to the ER with complaints of falling and having left facial abrasion and hematoma. Patient denies any loss of consciousness. Patient has CT scan secondary to his fall and being on a blood thinner. The scan was negative for acute changes other than right front scalp hematoma. This was explained to his in detail and patient will be discharged home. Differential Diagnosis Unlikely syncope, dislocation of shoulder region, fracture of wrist, compression fracture, concussion with loss of consciousness or concussion without loss of consciousness Medical Records I reviewed the patient's medical records. Lab Data I reviewed the patient's lab results. Radiology Impressions Head CT 11/12/22 14:59 IMPRESSION: 1. No acute intracranial hemorrhage or edema. 2. Moderate atrophy with moderate to severe small vessel ischemic changes. 3. RIGHT frontal scalp hematoma. Discharge Plan Discharge Patient Disposition: Home Clinical Impression: Fall Qualifiers: Encounter type: initial encounter Qualified Code(s): W19.XXXA - Unspecified fall, initial encounter Hematoma of frontal scalp Qualifiers: Encounter type: initial encounter Qualified Code(s): S00.03XA - Contusion of scalp, initial encounter Condition: Stable Prescriptions: No Action Eliquis 5 mg tablet 5 mg PO BID lisinopril 40 mg tablet 40 mg PO BID atorvastatin [Lipitor] 40 mg tablet 40 mg PO BEDTIME quercetin 500 mg PO BID doxycycline hyclate 100 mg tablet 100 mg PO BID Qty: 180 3RF hydrochlorothiazide 12.5 mg tablet 12.5 mg PO QAM Pepcid AC 10 mg Tablet 10 mg PO DAILY PRN (Reason: Heartburn) Zyrtec 10 mg Tablet 10 mg PO QAM levothyroxine 125 mcg tablet 125 mcg PO QAM Nitrostat 0.4 mg Tablet, Sublingual 0.4 mg SUBLINGUAL Q5M PRN (Reason: Chest Pain) Rx Instructions: do not exceed 3 doses per episode metoprolol succinate 25 mg tablet extended release 24 hr 25 mg PO QAM Flonase 50 mcg/actuation [place],Suspension 2 spray INTRANASAL DAILY PRN (Reason: Allergy Symptoms) Rx Instructions: administer into each nostril Vitamin D3 50 mcg (2,000 unit) Capsule 50 mcg PO BID Discharge Orders: Discharge ED (Routine); Ordered 11/12/22 Ordered By: Hermann Macias Referrals: Leeann Mcclendon MD [Primary Care Provider] - 1 week Patient Instructions: Hematoma (ED) Activity Restrictions/Additional Instructions: Please follow-up with your family practice physician approximately 7 days or sooner as needed. Please return to the ER for any worsening signs or symptoms. Coding Level of Care Code ED Weblogic Administrator for Yaritza Matias
--- NOTE | 2022-11-12 15:14 | PC.PHAR ---
pts verified pts medications-pts states the pt is taking lisinopril 40mg bid ext shows last filled 12/15/21 90d/s 40mg daily pts states the pt has a build up of this medication-pts states the pts amlodipine 10mg daily was dced ext med history shows last filled 09/09/22 90ds
[2022-11-12 15:30] VITALS: BP 142/78; PULSE 62; RESP 20; O2SAT 98
--- NOTE | 2022-11-12 16:05 | PC.NURSE ---
PER PT FELL AND HIT HIS HEAD ON GRAVEL. PT HAS ABRASION TO LEFT FACE ABOVE EYE. WOUND CLEANED. BANDAGED. PT HAS ABRASION TO LEFT ARM AND RIGHT KNEE. STATES PT TAKES BLOOD THINNERS. PHYSICIAN AWARE. PT HAS SOME SLURRED AND MUMMBLED SPEECH. STATES THIS IS OLD AND PT HAS HX OF ALZHEIMERS.
== END 2022-11-12 16:43 | disposition home or self-care (01) ==
PROVIDERS: Emergency Provider Emergency Medicine; PCP Family Medicine
DX: S00.03XA Contusion of scalp, initial encounter (principal); Z79.01 Long term (current) use of anticoagulants; N18.30 Chronic kidney disease, stage 3 unspecified; E78.5 Hyperlipidemia, unspecified; S00.81XA Abrasion of other part of head, initial encounter; W18.30XA Fall on same level, unspecified, initial encounter
CPT/HCPCS: 70450; 99284

== ENCOUNTER 2023-01-31 06:00 | Outpatient (RCR) | payer MEDICARE, OTHER, SELFPAY | END 2023-02-12 23:59 | disposition home or self-care (01) | LOC: WST 06:00 | PROVIDERS: Visit Provider Registered Nurse | DX: R47.9 Unspecified speech disturbances (principal) | CPT/HCPCS: 92507; 92523 ==

== ENCOUNTER 2023-02-13 06:00 | Outpatient (RCR) | payer MEDICARE, OTHER, SELFPAY | END 2023-03-14 23:59 | disposition home or self-care (01) | LOC: WST 06:00 | PROVIDERS: PCP Family Medicine; Visit Provider Registered Nurse | DX: R47.9 Unspecified speech disturbances (principal) | CPT/HCPCS: 92507 ==

== ENCOUNTER → 2023-02-22 10:48 | Outpatient (BNVA) | payer MEDICARE, OTHER, SELFPAY | PROVIDERS: PCP Family Medicine; Referring Provider Registered Nurse; Visit Provider Nurse Practitioner Family | DX: D48.5 Neoplasm of uncertain behavior of skin (principal); L82.1 Other seborrheic keratosis; L81.4 Other melanin hyperpigmentation; L57.8 Other skin changes due to chronic exposure to nonionizing radiation; D22.39 Melanocytic nevi of other parts of face | CPT/HCPCS: 11102; 17000; 99203 ==

== ENCOUNTER → 2023-03-19 09:32 | Outpatient (BNVA) | payer MEDICARE, OTHER, SELFPAY | PROVIDERS: PCP Family Medicine; Visit Provider Dermatology | DX: C44.529 Squamous cell carcinoma of skin of other part of trunk (principal) | CPT/HCPCS: 12032; 17313 ==

== ENCOUNTER → 2023-04-01 09:42 | Outpatient (BNVA) | payer MEDICARE, OTHER, SELFPAY | PROVIDERS: PCP Family Medicine; Visit Provider Dermatology | DX: Z48.02 Encounter for removal of sutures (principal) | CPT/HCPCS: 99212 ==

== ENCOUNTER 2023-04-10 22:19 | Inpatient (IN) | payer MEDICARE, OTHER, SELFPAY ==
[2023-04-10 22:22] VITALS: BP 132/89; PULSE 65; RESP 18; TEMP 36.6; O2SAT 94; BMI 24.5
--- NOTE | 2023-04-10 22:46 | CTR_ITS ---
PROCEDURE INFORMATION: Exam: CT Head Without Contrast Exam date and time: 04/10/2023 11:54 PM Age: 83 years old Clinical indication: Injury or trauma; Fall; Blunt trauma (contusions or hematomas); Other: Syncope; Additional info: Head injury TECHNIQUE: Imaging protocol: Computed tomography of the head without contrast. Radiation optimization: All CT scans at this facility use at least one of these dose optimization techniques: automated exposure control; mA and/or kV adjustment per patient size (includes targeted exams where dose is matched to clinical indication); or iterative reconstruction. REPORTING DATA: Count of CT and Cardiac NM exams in prior 12 months: This patient has received [address] and 0 known cardiac nuclear medicine studies in the 12 months prior to the current study. COMPARISON: CT head wo con* [id number] 11/12/2022 3:06 PM RADIATION DOSE METRICS: Total DLP (mGy-cm): 1168.28 FINDINGS: Brain: No hemorrhage. Moderate white matter disease with diffuse cerebral volume loss. No mass effect. Preserved rosario-white interfaces. Cerebral ventricles: Ex vacuo ventriculomegaly. Paranasal sinuses: Visualized sinuses are unremarkable. No fluid levels. Mastoid air cells: Visualized mastoid air cells are well aerated. Orbital cavities: Changes of prior cataract surgery noted. Bones/joints: Unremarkable. No acute fracture. Soft tissues: Unremarkable. CT/CT head wo con* [id number] IMPRESSION: No evidence of acute intracranial hemorrhage, mass effect, or edema. No change from prior.
--- NOTE | 2023-04-10 22:49 | ECG_ITS ---
[facility] Test Date: 2023-04-10 Pat Name: Red Barraza Department: Room: Gender: Male Etl Application Developer: : 1940 Requested By: Ruby Kapadia Order Number: [id number] María MD: Roc Yen M.D. Measurements Intervals [place] Rate: 57 P: 0 [place]: 0 QRS: -60 QRSD: 113 T: 82 QT: 426 QTc: 415 Interpretive Statements ATRIAL FIBRILLATION WITH SLOW VENTRICULAR RESPONSE PATTERN CONSISTENT WITH PULMONARY DISEASE MINIMAL VOLTAGE CRITERIA FOR LVH, CONSIDER NORMAL VARIANT [MEETS CRITERIA IN ONE OF: R(aVL), S(V1), R(V5), R(V5/V6)+S(V1)] INFERIOR MYOCARDIAL INFARCTION , PROBABLY OLD [40+ ms Q WAVE AND/OR ST/T ABNORMALITY IN II/aVF] Compared to ECG 03/23/2017 12:38:57 Aberrant conduction of supraventricular beat(s) no longer present Ventricular premature complex(es) no longer present Left anterior fascicular block no longer present Myocardial infarct finding still present Electronically Signed On 04-11-2023 7:09:13 BOARDING SPECIALIST by Roc Yen M.D. [id number]
--- NOTE | 2023-04-10 22:49 | CTR_ITS ---
PROCEDURE INFORMATION: Exam: CT Cervical Spine Without Contrast Exam date and time: 04/10/2023 11:57 PM Age: 83 years old Clinical indication: Injury or trauma; Fall; Blunt trauma; Additional info: Pain post fall TECHNIQUE: Imaging protocol: Computed tomography of the cervical spine without contrast. Radiation optimization: All CT scans at this facility use at least one of these dose optimization techniques: automated exposure control; mA and/or kV adjustment per patient size (includes targeted exams where dose is matched to clinical indication); or iterative reconstruction. REPORTING DATA: Count of CT and Cardiac NM exams in prior 12 months: This patient has received [address] and 0 known cardiac nuclear medicine studies in the 12 months prior to the current study. COMPARISON: CT neck w con* [id number] 02/10/2019 2:04 PM RADIATION DOSE METRICS: Total DLP (mGy-cm): 189.87 FINDINGS: Bones/joints: No evidence of acute cervical spine fracture or traumatic malalignment. Mild degenerative disc disease and moderate to advanced facet arthropathy noted throughout the cervical spine. Spinal canal is widely patent. There is neural foraminal stenosis on the left at C3-C4 and on the right at C4-C5. Pharynx: Normal fossa of Rosenmuller. Larynx: Normal epiglottis. Lungs: Clear lung apices. Thyroid: Atrophic thyroid. Vasculature: Moderate calcific plaque noted at each carotid bifurcation. Soft tissues: Calcification in the nuchal ligament noted. CT/CT cervical spin wo con* [id number] IMPRESSION: No acute traumatic change in the cervical spine. Patent spinal canal. Neural foraminal stenosis noted on the left at C3-C4 and on the right at C4-C5.
[2023-04-10 23:03] LABS: Basophils # 0.1 10^3/uL (0.0-0.1); Basophils % 0.6 %; Eosinophils # 0.1 10^3/uL (0.0-0.8); Eosinophils % 0.9 %; Lymphocytes # 0.6 10^3/uL (0.8-4.8); Mean Corpuscular HGB Conc 33.3 g/dL (30-55); Mean Corpuscular Hemoglobin 33.8 pg (27-33); Mean Corpuscular Volume 101.4 fl (82-101); Mean Platelet Volume 12.1 fL (7.4-10.4); Monocytes # 0.4 10^3/uL (0.2-0.9); Monocytes % 5.6 %; Neutrophils # 6.52 10^3/uL (1.8-7.7); Neutrophils % 84.3 %; Nucleated Red Blood Cells % 0 %; Platelet Count 130 10^3/cmm (157-399); Red Blood Count 4.14 10^6/uL (3.85-5.65); Red Cell Distribution Width 13.5 % (12.1-15.1); White Blood Count 7.74 10^3/uL (3.29-11.43)
[2023-04-10 23:09] VITALS: BP 117/78; PULSE 61; RESP 16; O2SAT 97
[2023-04-10 23:10] LABS: INR 1.34 (0.8-1.2); Partial Thromboplastin Time 30.1 SECONDS (23.9-36.7)
[2023-04-10 23:15] LABS: Troponin(5th) Baseline 24 ng/L (0-15)
[2023-04-10 23:16] LABS: Alanine Aminotransferase 22 U/L (0-41); Albumin Level 4.1 g/dL (3.5-5.2); Alkaline Phosphatase 107 U/L (40-130); Aspartate Amino Transferase 24 U/L (0-40); Carbon Dioxide 23 mmol/L (22-29); Chloride 105 mmol/L (98-107); Globulin 1.8 g/dL (1.3-4.6); Glucose 169 mg/dL (65-115); Sodium 140 mmol/L (136-145); Total Bilirubin 0.9 mg/dL (0.15-1.2); Total Protein 5.9 g/dL (6.6-8.7)
[2023-04-10 23:30] LABS: Blood Urea Nitrogen 20 mg/dL (8-23); Calcium 9.1 mg/dL (8.5-10.5); Osmolality Calculated 297 mOsm/kg (285-295)
[2023-04-11] VITALS (66 sets, daily range): BP systolic 117–194; BP diastolic 73–128; PULSE 57–103; RESP 14–28; TEMP 36.4–36.8; O2SAT 86–99; BMI 23.6
[2023-04-11] MEDS: iohexol 350 mg/mL 500 mL Btl (per mL) IV (00:38)
[2023-04-11 01:08] LABS: Troponin 5 2HR 21.41 ng/L (0-15)
[2023-04-11 01:09] LABS: Troponin 5 2HR Delta -2.59 ABS# (0-10)
--- NOTE | 2023-04-11 03:06 | ED_ITS ---
HPI - Syncope 2 General: Chief Complaint: Syncope Stated Complaint: Fall Time Seen by Provider: 04/10/23 22:46 History of Present Illness: 83-year-old male with complex medical history atrial fibs, hypothyroidism, hyperlipidemia, chronic renal disease, dementia stable aortic aneurysm and dementia was brought into emergency room after possible syncope episode and cardiac arrest. According to the daughter who is the nurse, he reviews that patient was having dinner around 9 PM when he got up and had a syncope episode. Patient sustained head injury after hitting against the kitchen island. Daughter reveals that patient was pulseless and she had a decompression for about 1 minute. After a few chest compressions patient regained pulse and was awake. Upon present emergency room patient is awake alert x 3 and denies any headache, blurry vision, change in vision, chest pain, shortness of breath, abdominal pain or back pain. reveals that patient does have aortic aneurysm that measured around 3.5 cm. No known sick contact or recent foreign travel Associated symptoms: Deny abdominal pain, chest pain, fever(s), headache(s), lightheadedness, nausea or vertigo Review of Systems 2 General: Reports: 10 or more systems reviewed and unremarkable except in HPI and below Const: Denies: fever(s), chills, body aches or change in appetite Eyes: Denies: change in vision, blurry vision, photophobia or eye discomfort Card: Reports: syncope; Denies: chest pain, palpitations, irregular heart rhythm, edema, swelling of feet/ankles, lightheadedness, dyspnea on exertion or orthopnea Resp: Denies: dyspnea or productive cough GI: Denies: abdominal pain, nausea, vomiting, hematemesis, coffee ground emesis, dysphagia, heartburn, early satiety or diarrhea : Denies: flank pain, difficulty urinating, dysuria, urinary frequency, urinary urgency, urinary dribbling, difficulty starting urination, change in urine stream, nocturia, oliguria, urinary incontinence, hematuria, genital pain, genital lesions or penile discharge Musc: Denies: neck pain, back pain or extremity pain Neuro: Reports: seizure-like activity; Denies: headache(s), numbness in extremities, weakness in extremities, sensory changes, lack of coordination, difficulty walking, frequent falls, dizziness, vertigo, confusion, behavioral changes, difficulty communicating thoughts or restless legs PFSH ED 2 PFSH: Medical History (Updated 04/13/23 @ 05:15 by Rbuy Mcleod MD) H/O coronary angiogram Chronic prostatitis Hypothyroidism -on levothyroxine Chronic anticoagulation A. fib A-fib -on AC with Eliquis which is currently on hold for procedure Thrombocytopenia -Follows up with Dr. Chun, isolated thrombocytopenia -platelet count stable, no bleeding Renal calculi Hypothyroid Hyperlipidemia CKD (chronic kidney disease), stage III Microscopic hematuria Lung nodules Ventricular trigeminy Prostatitis Right ureteral calculus AAA (abdominal aortic aneurysm) -3.4 cm infrarenal abdominal aortic aneurysm following up with Dr. Sprague Surgical History (Updated 04/11/23 @ 05:24 by Yuly Stern MD) H/O right knee surgery knee replacement H/O total knee replacement RIGHT S/P coronary artery stent placement S/P PTCA (percutaneous transluminal coronary angioplasty) Hx of tonsillectomy Hx of shoulder surgery Family History Mother , at age 63 CAD (coronary artery disease) Father , at age 77 CAD (coronary artery disease) Social History Smoking and tobacco/nicotine status: never used tobacco/nicotine Alcohol intake: current Alcohol intake frequency: holidays/special occasions only Substance/Drug Use: unknown Adopted: No Caregiver/support person: No Lives independently: No Household members: spouse Marital status: Current occupational status: retired Physical Exam 2 Const: COMMON NORMALS: no acute distress, patient oriented x3 and alert HENMT: COMMON NORMALS: normocephalic, hearing grossly normal bilaterally, external ears normal and Normal external nose present HEAD & SCALP: n ormocephalic NOSE: Normal external nose present EXTERNAL EAR: Yes external ears normal Eye: COMMON NORMALS: Equal, round and reactive pupils present, EOMs intact bilaterally, conjunctivae normal, no scleral icterus, no papilledema, normal visual garcia by confrontation and fundi normal bilaterally CONJUNCTIVA: Yes conjunctivae normal PUPIL: Yes Equal, round and reactive pupils present D IRECT OPHTHALMOSCOPY: Yes no papilledema and Yes fundi normal bilaterally Neck/C-Spine: COMMON NORMALS: full ROM, no lymphadenopathy, supple, no meningeal signs, no JVD, Thyroid normal and No carotid bruits THYROID: T hyroid normal Chest: COMMONS NORMALS: normal inspection of the chest, normal palpation of entire chest wall, normal inspection of the breasts and normal palpation of the breasts Breast/axilla inspection: Yes normal inspection of the breasts B REAST/AXILLA PALPATION: Yes normal palpation of the breasts Resp: COMMON NORMALS: normal respiratory effort, No retractions, No use of accessory muscles, clear to auscultation bilaterally and percussion normal A USCULTATION: clear to auscultation bilaterally PERCUSSION: percussion normal Cardio: COMMON NORMALS: no JVD GI: COMMON NORMALS: Normal to inspection, nondistended, normoactive bowel sounds present, Soft to palpation, non-tender, No hepatosplenomegaly present, no masses and no bruits INSPECTION: Yes normal to inspection AUSCULTATION: Y es normoactive bowel sounds and No Abdominal bruit PALPATION: Yes Soft to palpation and Yes No hepatosplenomegaly present PERCUSSION: normal to percussion Neuro: COMMON NORMALS: patient oriented x3 SENSORIUM/ORIENTATION: Yes alert MENINGEAL SIGNS: Yes no meningeal signs CRANIAL NERVES: Yes CN normal except as noted SPEECH: abnormal speech MOTOR EXAM: 5/5 motor strength present throughout Skin: COMMON NORMALS: no rashes or lesions noted, no wounds, turgor normal, no jaundice, no petechiae and no mottling GENERAL SKIN EXAM: no rashes or lesions noted and turgor normal Course 2 Consultations: Consultation #1: Discussed patient with the hospitalist. Patient be admitted to ICU for further evaluation and treatment. Vital Signs: Vital signs: Vital Signs Temperature 97.6 F 04/12/23 16:18 Pulse Rate 73 04/12/23 16:18 Respiratory Rate 15 04/12/23 16:18 Blood Pressure 158/88 04/12/23 16:18 Pulse Oximetry 100 04/12/23 16:18 Oxygen Delivery Me thod Room Air 04/12/23 11:02 MDM - Syncope Medical Decision Making Patient made comfortable emergency room had extensive workup including CBC, CMP CT head neck abdomen pelvis EKG troponin. I discussed plan and treatment with daughter and . I discussed patient with the hospitalist. Patient be admitted for further evaluation and treatment. Differential Diagnosis Likely syncope due to orthostatic hypotension, vasovagal syncope, complete atrioventricular block, subarachnoid hemorrhage, pulmonary embolism and dehydration Lab Data 04/12/23 06:00 04/12/23 06:[address] 04/10/23 22:46 IMPRESSION: No evidence of acute intracranial hemorrhage, mass effect, or edema. No change from prior. Cervical Spine CT 04/10/23 22:49 IMPRESSION: No acute traumatic change in the cervical spine. Patent spinal canal. Neural foraminal stenosis noted on the left at C3-C4 and on the right at C4-C5. Chest/Abdomen/Pelvis CTA 04/11/23 22:46 IMPRESSION: 1. Infrarenal abdominal aortic aneurysm is increased in size compared to 01/09/2022, now measuring up to 4.3 cm, previously up to 3.9 cm. 2. Hyperattenuating left renal lesions are indeterminate, could represent hemorrhagic cysts or solid lesions. Recommend nonemergent characterization with renal protocol CT or MRI. 3. Mild lower lobe predominant airway wall thickening, may be infectious or inflammatory. 4. Cardiomegaly. Laboratory Results WBC 9.34 10^3/uL (3.29-11.43) 04/11/23 08:49 RBC 4.36 10^6/uL (3.85-5.65) 04/11/23 08:49 Hgb 14.70 g/dL (11.27-16.99) 04/11/23 08:49 Hct 43.4 % (37-53) 04/11/23 08:49 MCV 99.5 fl (82-101) 04/11/23 08:49 MCH 33.7 pg (27-33) H 04/11/23 08:49 MCHC 33.9 g/dL (30-55) 04/11/23 08:49 RDW 13.4 % (12.1-15.1) 04/11/23 08:49 Plt Count 141 10^3/cmm (157-399) L 04/11/23 08:49 MPV 11.9 fL (7.4-10.4) H 04/11/23 08:49 Neut % (Auto) 83.7 % 04/11/23 08:49 Lymph % (Auto) 8.5 % 04/11/23 08:49 Daniels % (Auto) 6.4 % 04/11/23 08:49 Eos % (Auto) 0.2 % 04/11/23 08:49 Baso % (Auto) 0.3 % 04/11/23 08:49 Neut # (Auto) 7.82 10^3/uL (1.8-7.7) H 04/11/23 08:49 Lymph # (Auto) 0.8 10^3/uL (0.8-4.8) 04/11/23 08:49 Daniels # (Auto) 0.6 10^3/uL (0.2-0.9) 04/11/23 08:49 Eos # (Auto) 0.0 10^3/uL (0.0-0.8) 04/11/23 08:49 Baso # (Auto) 0.0 10^3/uL (0.0-0.1) 04/11/23 08:49 Nucleated RBC % (auto) 0 % 04/11/23 08:49 Nucleated RBCs # 0.0 /100WBC 04/11/23 08:49 PT 17.00 SECONDS (12.1-14.9) H 04/10/23 22:53 INR 1.34 (0.8-1.2) H 04/10/23 22:53 APTT 30.1 SECONDS (23.9-36.7) 04/10/23 22:53 Sodium 139 mmol/L (136-145) 04/11/23 08:49 Potassium 3.6 mmol/L (3.5-5.1) 04/11/23 08:49 Chloride 102 mmol/L (98-107) 04/11/23 08:49 Carbon Dioxide 23 mmol/L (22-29) 04/11/23 08:49 Anion Gap 17.6 (5-19) 04/11/23 08:49 BUN 19 mg/dL (8-23) 04/11/23 08:49 Creatinine 1.4 mg/dL (0.7-1.2) H 04/11/23 08:49 GFR Calculation Not Reportable 04/11/23 08:49 Glucose 125 mg/dL (65-115) H 04/11/23 08:49 Calculated Osmolality 292 mOsm/kg (285-295) 04/11/23 08:49 Calcium 9.2 mg/dL (8.5-10.5) 04/11/23 08:49 Magnesium 2.0 mg/dL (1.7-2.3) 04/11/23 08:49 Total Bilirubin 1.4 mg/dL (0.15-1.2) H 04/11/23 08:49 AST 24 U/L (0-40) 04/11/23 08:49 ALT 22 U/L (0-41) 04/11/23 08:49 Alkaline Phosphatase 110 U/L (40-130) 04/11/23 08:49 Troponin T Baseline 24 ng/L (0-15) H 04/10/23 22:53 Troponin T 120 Minute 21.41 ng/L (0-15) H 04/11/23 00:30 Delta Troponin T -2.59 ABS# (0-10) L 04/11/23 00:30 Troponin T Hi Sens 6Hr 24.72 ng/L (0-15) H 04/11/23 04:30 Troponin T Hi Sens 6Hr Delta 0.72 ng/L (0-12) 04/11/23 04:30 Total Protein 6.7 g/dL (6.6-8.7) 04/11/23 08:49 Albumin 4.0 g/dL (3.5-5.2) 04/11/23 08:49 Globulin 2.7 g/dL (1.3-4.6) 04/11/23 08:49 Influenza Type A Ag negative (Negative) 04/11/23 09:09 Influenza Type B Ag positive (Negative) H 04/11/23 09:09 SARS-CoV-2 Ag (Rapid) negative (Negative) 04/11/23 08:47 XR interpretation done by ED provider, pending radiology final review EKG Data EKG 1: Computer Generated Interpretation: Sinus bradycardia with rate of 57. Patient with atrial fib pattern. Nonspecific ST changes Discharge Plan Discharge Patient Disposition: Admitted As Inpatient Admit Provider: Yuly Stern Clinical Impression: Syncope, Head injuries Condition: Stable Discharge Diet: Cardiac Coding Level of Care Code ED Diversity Specialist for Yaritza Matias
--- NOTE | 2023-04-11 03:32 | PM.HP ---
Providers/Chief Complaint Admitting Physician: Yuly Stern MD Primary Care Provider: Leeann Mcclendon MD Chief Complaint: Fall History of Present Illness Red Barraza is a 83 year old male with known PMH infrarenal AAA 3.6 cm, A-fib, hypothyroidism significant dementia, carotid stenosis and kidney stones was brought to the emergency room today by family after having had a syncopal episode at home. Patient was in his usual state of health until about 9 PM when he had dinner and upon getting up from the table he suffered a syncopal episode. He sustained an injury after hitting his head against a kitchen island. Patient was apparently pulseless at home and received CPR for about 1 minute at home. This was delivered by his family who is a nurse. By the time he came into the emergency room he was alert and awake. At baseline mentation. He denies any current chest pain dyspnea or palpitations. Denies feeling dizzy however history is not reliable due to his significant dementia. Will to state his name but does not tell me much else. Answers yes or no appropriately in conversation. Review of Systems General: Reports: ROS unobtainable due to medical condition Medications/Allergies Home Medications Medication Instructions Recorded Confirmed Last Taken Type apixaban 5 mg tablet (Eliquis) 5 mg PO BID 09/23/19 11/12/22 11/12/22 09:00 History atorvastatin 40 mg tablet (Lipitor) 40 mg PO BEDTIME 09/23/19 11/12/22 11/11/22 History lisinopril 40 mg tablet 40 mg PO BID 09/23/19 11/12/22 11/12/22 09:00 History quercetin 500 mg PO BID 05/25/21 11/12/22 11/12/22 09:00 History doxycycline hyclate 100 mg tablet 100 mg PO BID #180 tabs 07/10/22 11/12/22 11/12/22 09:00 Rx hydrochlorothiazide 12.5 mg tablet 12.5 mg PO QAM 09/27/22 11/12/22 11/12/22 09:00 History cetirizine 10 mg tablet (Zyrtec) 10 mg PO QAM 11/12/22 11/12/22 11/12/22 09:00 History cholecalciferol (vitamin D3) 50 50 mcg PO BID 11/12/22 11/12/22 11/12/22 09:00 History mcg (2,000 unit) capsule (Vitamin D3) famotidine 10 mg tablet (Pepcid AC) 10 mg PO DAILY PRN Heartburn 11/12/22 11/12/22 Unknown History fluticasone propionate 50 2 spray intranasal DAILY PRN 11/12/22 11/12/22 Unknown History mcg/actuation nasal Allergy Symptoms spray,suspension levothyroxine 125 mcg tablet 125 mcg PO QAM 11/12/22 11/12/22 11/12/22 07:00 History metoprolol succinate 25 mg 25 mg PO QAM 11/12/22 11/12/22 11/12/22 09:00 History tablet,extended release 24 hr nitroglycerin 0.4 mg sublingual 0.4 mg sublingual Q5M PRN Chest 11/12/22 11/12/22 Unknown History tablet (Nitrostat) Pain Allergies Allergy/AdvReac Type Severity Reaction Status Date / Time No Known Allergies Allergy Verified 04/10/23 22:36 PFSH Acute PFSH: Medical History (Updated 04/11/23 @ 05:24 by Yuly Stern MD) H/O coronary angiogram Chronic prostatitis Hypothyroidism -on levothyroxine Chronic anticoagulation A. fib A-fib -on AC with Eliquis which is currently on hold for procedure Thrombocytopenia -Follows up with Dr. Chun, isolated thrombocytopenia -platelet count stable, no bleeding Renal calculi Hypothyroid Hyperlipidemia CKD (chronic kidney disease), stage III Microscopic hematuria Lung nodules Ventricular trigeminy Prostatitis Right ureteral calculus AAA (abdominal aortic aneurysm) -3.4 cm infrarenal abdominal aortic aneurysm following up with Dr. Sprague Surgical History (Updated 04/11/23 @ 05:24 by Yuly Stern MD) H/O right knee surgery knee replacement H/O total knee replacement RIGHT S/P coronary artery stent placement S/P PTCA (percutaneous transluminal coronary angioplasty) Hx of tonsillectomy Hx of shoulder surgery Family History Mother , at age 63 CAD (coronary artery disease) Father , at age 77 CAD (coronary artery disease) Social History Smoking and tobacco/nicotine status: never used tobacco/nicotine Alcohol intake: current Alcohol intake frequency: holidays/special occasions only Substance/Drug Use: unknown Adopted: No Caregiver/support person: No Lives independently: No Household members: spouse Marital status: Current occupational status: retired Vitals/I&O/Wt Last Vital Signs Temp 97.9 F 04/10/23 22:22 Pulse 71 04/11/23 02:41 Resp 18 04/11/23 02:41 BP 144/86 04/11/23 02:41 Pulse Ox 97 04/11/23 02:41 O2 Del Method Room Air 04/11/23 02:41 Weight last 48 hrs Weight 79.832 kg Physical Exam Narrative: General: No acute distress, AO x1-2 HEENT: PERRLA, pupils bilaterally equal and reactive, pallors not present, facial bruising around right forehead and under right lower eyelid Chest: Normal vesicular breath sounds, no added sounds, equal good air entry bilaterally CVS: S1-S2 regular, no murmurs, no tachycardia, no gallops, no rubs Abdomen: Soft, nontender, no organomegaly, bowel sounds present Neuro: No focal deficits, no facial deformity, AO x1-2, power 5/5 in all limbs Data 04/10/23 22:53 04/10/23 22:53 Other data: Date of Service: 04/11/23 Procedure(s): CT [facility] [id number] CT/CT [facility] [id number] IMPRESSION: 1. Infrarenal abdominal aortic aneurysm is increased in size compared to 01/09/2022, now measuring up to 4.3 cm, previously up to 3.9 cm. 2. Hyperattenuating left renal lesions are indeterminate, could represent hemorrhagic cysts or solid lesions. Recommend nonemergent characterization with renal protocol CT or MRI. 3. Mild lower lobe predominant airway wall thickening, may be infectious or inflammatory. 4. Cardiomegaly. A&P Assessment and plan (1) Cardiac arrest with successful resuscitation: 83-year-old man with past medical history of A-fib, AAA, asymptomatic bradycardia with heart rate in the 40s occasionally, aortic stenosis typically follows with cardiology out of [place]. He is brought to the emergency room today after having a cardiac arrest at home for which his family gave him CPR for about 1 minute. He had ROSC and was brought into the emergency room. He was alert and awake upon arrival. Mentation is at baseline. Possibilities include underlying arrhythmia versus vasovagal syncope. EKG shows A-fib with slow ventricular response with heart rate of 57 bpm. QTc interval normal at 415. Baseline troponin at 24, 2 hours at 21.4, pending 6-hour trend. No significant delta. Currently denies any chest pain. No acute ST-T wave changes on EKG. Possibility of ACS less likely. Monitor on telemetry for any arrhythmias. Check orthostatics. Echocardiogram, potentially severe aortic stenosis may have contributed Currently hypertensive with blood pressure ranging 1 60-1 70 systolic. Start home doses of his oral antihypertensives including lisinopril and HCTZ, first doses now. CTA negative for PE. CT abdomen and pelvis without any signs of ruptured aortic aneurysm though enlarged over previously. Observe closely over the next 24 hours for any recurrence of symptoms. DVT prophylaxis: Continue home dose of Eliquis. Full code Attestations Medical Necessity Statement*: Less than 2 midnight stay is anticipated at this time Coding Level of Care Code Acute Code for Chg Fwd Diagnoses Cardiac arrest with successful resuscitation I46.9
--- NOTE | 2023-04-11 04:55 | USCV_ITS ---
Red Barraza Age: 83 Gender: M : 1940 Exam Date: 04/11/2023 09:12 Ordering Phys: Yuly Stern MD Technologist: Miguel Hair Exam Location: [facility] [place] Indication: post card arrest BP: 156 / 96 HR: 72 Rhythm: Sinus Technical Quality: Adequate MEASUREMENTS (Male / Female) Normal Values 2D ECHO LV Diastolic Diameter PLAX 3.3 cm 4.2 - 5.9 / 3.9 - 5.3 cm LV Systolic Diameter PLAX 2.1 cm IVS Diastolic Thickness 1.1 cm 0.6 - 1.0 / 0.6 - 0.9 cm IVS Systolic Thickness 1.6 cm LVPW Diastolic Thickness 1.3 cm 0.6 - 1.0 / 0.6 - 0.9 cm LVPW Systolic Thickness 1.3 cm LVOT Diameter 2.0 cm LV Ejection Fraction 2D Teich 64.8 % LA Diameter 4.6 cm M-MODE Aortic Annulus Diameter 3.5 cm LA Ao Ratio MM 1.5 MV E Point Septal Separation 1.4 cm DOPPLER AV Peak Velocity 339.0 cm/s LVOT Peak Velocity 91.0 cm/s AV Area Cont Eq vti 0.9 cm squared AV Area Cont Eq pk 0.9 cm squared MV Area PHT 5.0 cm squared Mitral E to A Ratio 0.9 MV E' Velocity 40.0 cm/s Mitral E to MV E' Ratio 7.7 Mitral E to LV E' Lateral Ratio 7.0 Mitral E to LV E' Septal Ratio 8.6 TR Peak Velocity 251.3 cm/s TR Peak Gradient 25.3 mmHg TV Peak E Velocity 95.0 cm/s Right Atrial Pressure 3.0 mmHg Pulmonary Artery Systolic Pressu 28.3 mmHg RV Acceleration Time 0.1 s FINDINGS Left Ventricle Technically limited quality echocardiogram because of poor ultrasonic windows. Left ventricle is normal in size. LV systolic function is normal with EF of 55 to 60%. No regional wall motion abnormalities are seen. Right Ventricle Normal in size and function Right Atrium Normal in size Left Atrium Normal in size Mitral Valve Mild mitral annular calcification. Aortic Valve Aortic valve is thickened. Moderate aortic stenosis with aortic valve area of 1 cm2 and mean gradient of 22 mmHg. Tricuspid Valve Mild tricuspid regurgitation. Pulmonary artery systolic pressure is normal. Pulmonic Valve Not well visualized Pericardium Normal Aorta Normal in size IVC Not well visualized CONCLUSIONS Technically limited quality echocardiogram because of poor ultrasonic windows. LV systolic function is normal with EF of 55 to 60%. Moderate aortic stenosis Mild tricuspid regurgitation No comparison studies are available Roc Yen MD (Electronically Signed) Final Date: 11 April 2023 17:53 S
[2023-04-11 05:06] LABS: Troponin 5 6HR 24.72 ng/L (0-15); Troponin 5 6HR Delta 0.72 ng/L (0-12)
[2023-04-11] MEDS: hydroCHLOROthiazide 25 mg Tablet 12.5 MG PO (05:49)
[2023-04-11] MEDS: metoprolol succinate ER (24 HR) 25 mg Tablet PO (05:49)
[2023-04-11] MEDS: levothyroxine 125 mcg Tablet PO (05:49)
--- NOTE | 2023-04-11 07:37 | PC.NURSE ---
Sitter Patient confused, pulling at wires and attempting to get out of bed. Dr. Stern contacted and order received for 1:1 sitter.
[2023-04-11] MEDS: pantoprazole DR 40 mg Tablet PO (08:39)
[2023-04-11] MEDS: lisinopril 20 mg Tablet 40 MG PO ×2 (08:39→17:49)
[2023-04-11] MEDS: doxycycline 100 mg Tablet PO ×2 (08:39→17:49)
[2023-04-11] MEDS: apixaban 5 mg Tablet PO ×2 (08:39→17:49)
--- NOTE | 2023-04-11 08:52 | PC.PHAR ---
WAITING FOR CALL BACK FROM [facility] TO VERIFY MEDS
[2023-04-11 09:08] LABS: Basophils % 0.3 %; Eosinophils % 0.2 %; Hematocrit 43.4 % (37-53); Lymphocytes # 0.8 10^3/uL (0.8-4.8); Lymphocytes % 8.5 %; Mean Corpuscular HGB Conc 33.9 g/dL (30-55); Mean Corpuscular Hemoglobin 33.7 pg (27-33); Mean Corpuscular Volume 99.5 fl (82-101); Mean Platelet Volume 11.9 fL (7.4-10.4); Monocytes # 0.6 10^3/uL (0.2-0.9); Monocytes % 6.4 %; Neutrophils # 7.82 10^3/uL (1.8-7.7); Neutrophils % 83.7 %; Nucleated Red Blood Cells % 0 %; Platelet Count 141 10^3/cmm (157-399); Red Blood Count 4.36 10^6/uL (3.85-5.65); Red Cell Distribution Width 13.4 % (12.1-15.1); White Blood Count 9.34 10^3/uL (3.29-11.43)
[2023-04-11 09:25] LABS: SARS Covid-2 Antigen negative (Negative)
[2023-04-11 09:27] LABS: Alanine Aminotransferase 22 U/L (0-41); Alkaline Phosphatase 110 U/L (40-130); Anion Gap 17.6 (5-19); Aspartate Amino Transferase 24 U/L (0-40); Blood Urea Nitrogen 19 mg/dL (8-23); Calcium 9.2 mg/dL (8.5-10.5); Carbon Dioxide 23 mmol/L (22-29); Chloride 102 mmol/L (98-107); Globulin 2.7 g/dL (1.3-4.6); Glucose 125 mg/dL (65-115); Osmolality Calculated 292 mOsm/kg (285-295); Potassium 3.6 mmol/L (3.5-5.1); Sodium 139 mmol/L (136-145); Total Bilirubin 1.4 mg/dL (0.15-1.2); Total Protein 6.7 g/dL (6.6-8.7)
[2023-04-11 09:37] LABS: Influenza A by IFA negative (Negative); Influenza B by IFA positive (Negative)
--- NOTE | 2023-04-11 10:33 | PM.PN ---
Subjective Subjective: He is unable to provide history due to dementia, however, is awake, alert, interactive, appears, mildly hard of hearing, reports he is doing well. Denies any pain or discomfort. No chest pain or pressure. No trouble breathing. Vitals/I&O/Wt Last Vital Signs Temp 97.6 F 04/11/23 03:45 Pulse 80 04/11/23 08:15 Resp 21 H 04/11/23 08:15 BP 180/108 04/11/23 08:15 Pulse Ox 97 04/11/23 08:15 O2 Del Method Room Air 04/11/23 06:10 04/10/23 04/11/23 04/11/23 22:59 06:59 14:59 Intake Total 100 / 100 Output Total 250 / 250 Balance -250 / -250 100 / 100 Weight last 48 hrs Weight 77 kg Weight 77 kg Weight 79.832 kg Physical Exam Narrative: Family, daughter at bedside. Const: COMMON NORMALS: patient oriented x3 and alert GENERAL APPEARANCE: cooperative ORIENTATION/CONSCIOUSNESS: Yes awake HENMT: COMMON NORMALS: oropharynx normal Neck/C-Spine: COMMON NORMALS: no JVD Resp: COMMON NORMALS: normal respiratory effort and clear to auscultation bilaterally AUSCULTATION: clear to auscultation bilaterally Cardio: COMMON NORMALS: no JVD, S1 normal heart sound present and S2 normal heart sound present RHYTHM: abnormal rhythm irregularly irregular HEART SOUNDS: S1 normal heart sound present, S2 normal heart sound present and Murmur heart sound present systolic Location: right sternal border and other (aortic) GI: COMMON NORMALS: Normal to inspection, nondistended, normoactive bowel sounds present, Soft to palpation and non-tender PALPATION: Yes Soft to palpation Extremity: COMMON NORMALS: no joint enlargement and no pedal edema Neuro: COMMON NORMALS: patient oriented x3 and moves all extremities SENSORIUM/ORIENTATION: Yes alert Skin: COMMON NORMALS: no rashes or lesions noted GENERAL SKIN EXAM: no rashes or lesions noted Data 04/11/23 08:49 04/11/23 08:49 A&P Assessment and plan (1) Cardiac arrest with successful resuscitation: 83-year-old man with past medical history of A-fib, AAA, asymptomatic bradycardia with heart rate in the 40s occasionally, aortic stenosis typically follows with cardiology out of [place]. He is brought to the emergency room today after having a cardiac arrest at home for which his family gave him CPR for about 1 minute. He had ROSC and was brought into the emergency room. His daughter states he was up for about 4-5 minutes before the collapse. She states that after resuscitation orthostatics were checked. Will repeat. Pending TTE, he does have a loud systolic murmur over aortic area. Monitor on telemetry. Discussed consideration longer cardiac monitoring including after discharge, however, that is not sure that he will keep it on. Willing to try, if not keeping him, consideration may be given to a implantable loop recorder. Reviewed vitals, CBC, INR, CMP. Reviewed CT chest abdomen pelvis, mild lower lobe predominantly airway wall thickening may be infectious or inflammatory. Cardiomegaly. Reviewed rapid influenza and COVID test, positive for influenza. Start Tamiflu. Aortic aneurysm noted increased from 3.9 cm previously up to 4.3 cm. No signs of rupture. He does not have any abdominal or back pain. Follow-up with Dr. Walker in office. Reviewed CT surgery note Will request cardiology records from [place]. Discussed with his daughter continuing care on cardiac stepdown unit. Discussed with employment case manager DVT prophylaxis: Continue home dose of Eliquis. Full code Plan JESUS: Reviewed BUN, creatinine creatinine up to 1.4. Hold lisinopril. Possibly secondary to transient hypoperfusion with suspected cardiac arrest Alzheimer's dementia Atrial fibrillation: Continue metoprolol. Eliquis. Check magnesium. Hypertension: Has been resumed on HCTZ, metoprolol Chronic cystitis: On doxycycline Attestations Medical Necessity Statement*: Continue hospitalization for additional treatment following cardiac arrest in a gentleman of advanced age with underlying coronary disease, atrial fibrillation and dementia. and High MDM includes amount and/or complexity of data reviewed/ordered [ previous or external records, resulted lab(s)/test(s), ordered lab(s)/test(s), independent historian and other healthcare professional discussion] as documented Diagnoses Cardiac arrest with successful resuscitation I46.9
[2023-04-11] MEDS: oseltamivir phosphate 75 mg Capsule PO ×2 (12:45→17:49)
[2023-04-11] MEDS: hyDRALAzine 20 mg/mL INJ 1 mL 5 MG IVP (17:01)
--- NOTE | 2023-04-11 17:23 | PC.NURSE ---
Report given to SUDARSHAN Ayala, Medrg
--- NOTE | 2023-04-11 18:30 | PC.NURSE ---
Shift summary: Pt rested in bed until this afternoon. He got up to chair with 1-2 assist. He was slightly unsteady at first but it improved as he stood. He has been cooperative and confused entire shift. Covid and Flu tests completed, he is Flu B+. Droplet precautions started. Pt has been on RA with no breathing difficulty what so ever this shift. Afib noted on monitor, no ectopy or other dysrythmias noted. He has ate well every meal. His family has been very attentive at the bedside. He has let family and staff know he needs to urinate, but usually it is too late and he is incontinent.
[2023-04-11] MEDS: atorvastatin 40 mg Tablet PO (21:23)
--- NOTE | 2023-04-11 22:46 | CTR_ITS ---
PROCEDURE INFORMATION: Exam: CTA Abdomen and Pelvis With Contrast Exam date and time: 04/11/2023 12:04 AM Age: 83 years old Clinical indication: Injury or trauma; Fall; Blunt trauma; Other: H/o aaa; Patient HX: Sycopal episode TECHNIQUE: Imaging protocol: Computed tomographic angiography of the abdomen and pelvis with contrast. Exam focused on the arteries. 3D rendering (Not supervised by radiologist): MIP and/or 3D reconstructed images were created by the technologist. Radiation optimization: All CT scans at this facility use at least one of these dose optimization techniques: automated exposure control; mA and/or kV adjustment per patient size (includes targeted exams where dose is matched to clinical indication); or iterative reconstruction. Contrast material: OMNI 350; Contrast volume: 120 ml; Contrast route: INTRAVENOUS (IV); REPORTING DATA: Count of CT and Cardiac NM exams in prior 12 months: This patient has received 3 known CTs and 0 known cardiac nuclear medicine studies in the 12 months prior to the current study. COMPARISON: CT abdomen pelvis wo/w [id number] 01/09/2022 12:43 PM RADIATION DOSE METRICS: Total DLP (mGy-cm): 1374.58 FINDINGS: Lungs: No pulmonary mass or consolidation. Mild scattered atelectasis. Mild lower lobe predominant airway wall thickening, may be infectious or inflammatory. Heart: Cardiomegaly. No pericardial effusion. Coronary arteries: Severe multivessel coronary artery calcification and/or stents. Pulmonary arteries: No pulmonary emboli. Aorta: No thoracic aortic aneurysm or dissection. Aortic annulus calcification. Incidental 4 vessel aortic arch anatomy with left vertebral artery arising directly from the arch. Infrarenal abdominal aortic aneurysm, measures up to 4.3 x 4.3 cm in greatest diameter, previously 3.9 x by 3.8 cm when measured in a similar fashion. Celiac trunk and mesenteric arteries: Mild narrowing at the celiac at the celiac origin and within the proximal SMA. Renal arteries: No occlusion or significant stenosis. Right iliac arteries: No occlusion. Moderate focal stenosis proximally. 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 Left iliac arteries: No occlusion or significant stenosis. Liver: Unremarkable. Gallbladder and bile ducts: Cholecystectomy. Pancreas: Pancreatic atrophy. No main duct dilation. Spleen: Unremarkable. No splenomegaly. Adrenal glands: Unremarkable. No mass. Kidneys and ureters: Few simple appearing renal cysts bilaterally. Additional subcentimeter hypodensities which are too small to characterize. Two hyperdense cystic lesions in the left kidney measuring 0.9 cm and 1.4 cm. No hydroureteronephrosis. Stomach and bowel: Colonic diverticulosis without CT findings of acute diverticulitis. No bowel obstruction. Appendix: No evidence of appendicitis. Intraperitoneal space: Unremarkable. No free air. No significant fluid collection. Lymph nodes: Unremarkable. No enlarged lymph nodes. Urinary bladder: Unremarkable. No mass. Reproductive: Mild prostatomegaly. Bones/joints: No acute fracture. Degenerative changes. Soft tissues: Unremarkable. Other findings: Sequela of prior granulomatous disease. CT/CT [facility] [id number] IMPRESSION: 1. Infrarenal abdominal aortic aneurysm is increased in size compared to 01/09/2022, now measuring up to 4.3 cm, previously up to 3.9 cm. 2. Hyperattenuating left renal lesions are indeterminate, could represent hemorrhagic cysts or solid lesions. Recommend nonemergent characterization with renal protocol CT or MRI. 3. Mild lower lobe predominant airway wall thickening, may be infectious or inflammatory. 4. Cardiomegaly.
[2023-04-12 03:32] VITALS: BP 155/77; PULSE 58; RESP 16; TEMP 36.9; O2SAT 98
[2023-04-12 06:00] VITALS: PULSE 63
[2023-04-12] MEDS: levothyroxine 125 mcg Tablet PO (06:03)
[2023-04-12] MEDS: hydroCHLOROthiazide 25 mg Tablet 12.5 MG PO (06:03)
[2023-04-12 06:32] LABS: Basophils # 0.1 10^3/uL (0.0-0.1); Basophils % 0.8 %; Eosinophils # 0.1 10^3/uL (0.0-0.8); Eosinophils % 2.2 %; Hematocrit 43.5 % (37-53); Lymphocytes # 1.2 10^3/uL (0.8-4.8); Lymphocytes % 18.3 %; Mean Platelet Volume 12.3 fL (7.4-10.4); Monocytes # 0.6 10^3/uL (0.2-0.9); Monocytes % 8.8 %; Neutrophils # 4.39 10^3/uL (1.8-7.7); Neutrophils % 69.4 %; Nucleated Red Blood Cells % 0 %; Platelet Count 124 10^3/cmm (157-399); Red Blood Count 4.35 10^6/uL (3.85-5.65); Red Cell Distribution Width 13.5 % (12.1-15.1); White Blood Count 6.33 10^3/uL (3.29-11.43)
[2023-04-12 06:56] LABS: Alanine Aminotransferase 17 U/L (0-41); Albumin Level 3.9 g/dL (3.5-5.2); Alkaline Phosphatase 109 U/L (40-130); Anion Gap 15.6 (5-19); Aspartate Amino Transferase 22 U/L (0-40); Blood Urea Nitrogen 18 mg/dL (8-23); Calcium 9.1 mg/dL (8.5-10.5); Carbon Dioxide 25 mmol/L (22-29); Chloride 101 mmol/L (98-107); Globulin 2.5 g/dL (1.3-4.6); Glucose 94 mg/dL (65-115); Osmolality Calculated 288 mOsm/kg (285-295); Potassium 3.6 mmol/L (3.5-5.1); Sodium 138 mmol/L (136-145); Total Bilirubin 2.1 mg/dL (0.15-1.2); Total Protein 6.4 g/dL (6.6-8.7)
--- NOTE | 2023-04-12 07:28 | PC.SOCIAL ---
Pg 2 IMM Explained to pt & family Pg 2 IMM. No questions voiced. Provided pt a copy. Initialed, dated, & timed a copy & placed in chart.
[2023-04-12 07:53] VITALS: BP 165/94; PULSE 55; RESP 15; TEMP 36.4; O2SAT 95
--- NOTE | 2023-04-12 09:09 | PC.CHAP ---
Pastoral Care Encounter/Spiritual Assessment Type of Contact [] Declined postmaster relief visit [] Patient/Family/Request visit [] Outpatient visit [] Follow-up visit [] Physician referral [] Code/Alert [] Routine visit [] Staff referral [] Actively dying [] Patient sleeping [] Family support [] [] Out of room [] Palliative care [] [] Receiving care in room [] Pre-surgical visit [] Trauma [] Long length of stay [] ICU visit [] Other:Covid. No visit. Relational/Emotional Strength [] Patient feels connected with others/family/visitors/staff [] Distress [] Loneliness/isolation [] Abandonment Spirituality of Patient [] Person of Pao [] Attends Yarsani of their Pao [] Believes in Prayer [] Reads Bible or Mormon materials [] There are Spiritual issues to be addressed Photographer Interventions [] Prayer [] Active listening [] Non-anxious presence [] Spiritual/emotional support [] Crisis/trauma care [] Spiritual counseling [] Bereavement support [] Provided bereavement packet [] Provided Bible/devotional materials [] Provided toy/stuffed animal, coloring book to patient or family member [] Provided Communion [] Anointing/[place] [] Salvation [] Completed spiritual assessment [] Other: Impact on Illness or Injury [] Angry [] Fearful [] Anxious [] Often cries [] Exhaustion [] Unable to work [] Unable to attend mandaeism [] Unable to walk/stand [] Unable to read [] Unable to drive [] Unable to eat/drink [] Unable to sleep [] Unable to be with family [] Patient intubated [] Other: Summary Time spent with patient
[2023-04-12] MEDS: pantoprazole DR 40 mg Tablet PO (10:00)
[2023-04-12] MEDS: lisinopril 20 mg Tablet 40 MG PO (10:00)
[2023-04-12] MEDS: apixaban 5 mg Tablet PO (10:00)
[2023-04-12] MEDS: doxycycline 100 mg Tablet PO (10:00)
[2023-04-12] MEDS: oseltamivir phosphate 75 mg Capsule PO (10:00)
[2023-04-12 11:02] VITALS: BP 158/88; PULSE 73; RESP 15; TEMP 36.4; O2SAT 100
--- NOTE | 2023-04-12 11:38 | P.CONIM_ITS ---
Providers/Reason For Consult 2 Consulting Physician/Specialty*: Roc Yen MD/ Cardiology Reason for Consult*: Possible cardiac arrest Requesting Physician: Dr Bledsoe Attending Physician: Navi Bledsoe Primary Care Provider: Leeann Mcclendon MD History of Present Illness History of Present Illness Red Barraza is a 83 year old male with past medical history of atrial fibrillation, dementia, hypertension, AAA who was brought to hospital after he had a syncopal episode. Possibly lost pulse and had CPR performed. He denies any chest pain. He is found to be influenza A positive. EKG not showing acute ischemic changes. Occasional PVCs seen. Telemetry not showing significant runs of arrhythmias. Echo showed normal LV systolic function with moderate aortic stenosis. Review of Systems 2 General: Reports: ROS unobtainable due to medical condition Medications/Allergies Home Medications Medication Instructions Recorded Confirmed Last Taken Type apixaban 5 mg tablet (Eliquis) 5 mg PO BID 09/23/19 04/11/23 11/12/22 09:00 History atorvastatin 40 mg tablet (Lipitor) 40 mg PO BEDTIME 09/23/19 04/11/23 11/11/22 History lisinopril 40 mg tablet 40 mg PO BID 09/23/19 04/11/23 11/12/22 09:00 History quercetin 500 mg PO BID 05/25/21 04/11/23 11/12/22 09:00 History doxycycline hyclate 100 mg tablet 100 mg PO BID #180 tabs 07/10/22 04/11/23 11/12/22 09:00 Rx hydrochlorothiazide 12.5 mg tablet 12.5 mg PO QAM 09/27/22 04/11/23 11/12/22 09:00 History cetirizine 10 mg tablet (Zyrtec) 10 mg PO QAM 11/12/22 04/11/23 11/12/22 09:00 History cholecalciferol (vitamin D3) 50 50 mcg PO BID 11/12/22 04/11/23 11/12/22 09:00 History mcg (2,000 unit) capsule (Vitamin D3) famotidine 10 mg tablet (Pepcid AC) 10 mg PO DAILY PRN Heartburn 11/12/22 04/11/23 Unknown History fluticasone propionate 50 2 spray intranasal DAILY PRN 11/12/22 04/11/23 Unknown History mcg/actuation nasal Allergy Symptoms spray,suspension levothyroxine 125 mcg tablet 125 mcg PO QAM 11/12/22 04/11/23 11/12/22 07:00 History metoprolol succinate 25 mg 25 mg PO QAM 11/12/22 04/11/23 11/12/22 09:00 History tablet,extended release 24 hr nitroglycerin 0.4 mg sublingual 0.4 mg sublingual Q5M PRN Chest 11/12/22 04/11/23 Unknown History tablet (Nitrostat) Pain oseltamivir 75 mg capsule 75 mg PO BID #7 caps 04/12/23 Unknown Rx Allergies Allergy/AdvReac Type Severity Reaction Status Date / Time No Known Allergies Allergy Verified 04/10/23 22:36 Current Medications Generic Name Dose Route Start Last Admin Trade Name Freq PRN Reason Stop Dose Admin Apixaban 5 mg 04/11/23 09:00 04/12/23 10:00 Apixaban 5 Mg Tablet PO [address] Administration Atorvastatin Calcium 40 mg 04/11/23 21:00 04/11/23 21:23 Atorvastatin 40 Mg Tablet PO [address] Administration Doxycycline Monohydrate 100 mg 04/11/23 09:00 04/12/23 10:00 Doxycycline 100 Mg Tablet PO [address] Administration Hydrochlorothiazide 12.5 mg 04/11/23 06:00 04/12/23 06:03 Hydrochlorothiazide 25 Mg Tablet PO 12.[address] Administration Levothyroxine Sodium 125 mcg 04/11/23 06:00 04/12/23 06:03 Levothyroxine 125 Mcg Tablet PO [address] Administration Lisinopril 40 mg 04/11/23 09:00 04/12/23 10:00 Lisinopril 20 Mg Tablet PO [address] Administration Metoprolol Succinate 25 mg 04/11/23 06:00 04/12/23 06:01 Metoprolol Succinate Er (24 Hr) 25 Mg Tablet PO Not Given QAM LANE Oseltamivir Phosphate 75 mg 04/11/23 11:00 04/12/23 10:00 Oseltamivir Phosphate 75 Mg Capsule PO [address] Administration Pantoprazole Sodium 40 mg 04/11/23 09:00 04/12/23 10:[address] 40 Mg Tablet PO [address] Administration PFSH Acute 2 PFSH: Medical History (Updated 04/17/23 @ 13:58 by Roc Yen M.D) H/O coronary angiogram Chronic prostatitis Hypothyroidism -on levothyroxine Chronic anticoagulation A. fib A-fib Thrombocytopenia -Follows up with Dr. Chun, isolated thrombocytopenia -platelet count stable, no bleeding Renal calculi Hypothyroid Hyperlipidemia CKD (chronic kidney disease), stage III Microscopic hematuria Lung nodules Ventricular trigeminy Prostatitis Right ureteral calculus AAA (abdominal aortic aneurysm) Surgical History (Updated 04/11/23 @ 05:24 by Yuly Stern MD) H/O right knee surgery knee replacement H/O total knee replacement RIGHT S/P coronary artery stent placement S/P PTCA (percutaneous transluminal coronary angioplasty) Hx of tonsillectomy Hx of shoulder surgery Family History Mother , at age 63 CAD (coronary artery disease) Father , at age 77 CAD (coronary artery disease) Social History Smoking and tobacco/nicotine status: never used tobacco/nicotine Alcohol intake: current Alcohol intake frequency: holidays/special occasions only Substance/Drug Use: unknown Adopted: No Caregiver/support person: No Lives independently: No Household members: spouse Marital status: Current occupational status: retired Vitals/I&O/Wt Last Vital Signs Temp 97.6 F 04/12/23 11:02 Pulse 73 04/12/23 11:02 Resp 15 04/12/23 11:02 BP 158/88 04/12/23 11:02 Pulse Ox 100 04/12/23 11:02 O2 Del Method Room Air 04/12/23 11:02 04/11/23 04/12/23 04/12/23 22:59 06:59 14:59 Intake Total 200 / 500 240 / 240 Balance 200 / 500 240 / 240 Weight last 48 hrs Weight 177 lb 6 oz Weight 169 lb 12.095 oz Weight 169 lb 12.095 oz Weight 176 lb Physical Exam 2 Narrative: GENERAL: Patient is alert, awake and oriented x3. [] NECK: No jugular vein distension. [] HEENT: No cyanosis. No icterus. No pallor. [] HEART: irrgularlyl irregular, S1 and S2. LUNGS: Clear to auscultate bilaterally. [] CENTRAL NERVOUS SYSTEM: Grossly nonfocal. [] EXTREMITIES: Lower extremities with 1+ edema bilaterally. Data 04/12/23 06:00 04/12/23 06:00 A&P Assessment and plan (1) Cardiac arrest with successful resuscitation: (2) Bigeminy: (3) AAA (abdominal aortic aneurysm): Qualifiers: Presence of rupture: without rupture Qualified Code(s): I71.4 - Abdominal aortic aneurysm, without rupture (4) A-fib: Qualifiers: Atrial fibrillation type: unspecified Qualified Code(s): I48.91 - Unspecified atrial fibrillation Plan Patient is presented with questionable cardiac arrest. His telemetry is not showing any runs of arrhythmias. Has some bigeminy noted occasionally. I had a detailed discussion regarding all possible treatment options. Shared decision was made to proceed with medical therapy at this time. He will need outpatient event monitor and stress test. Patient and family want to be discharged home today. He had similar episode several years ago according to the family. Thank you for involving us with care of this patient. Please call with questions. Consult Attestations 2 Medical Necessity Statement: Care expected to cross 2 midnights. Coding Level of Care Code Acute Code for [facility] Diagnoses Cardiac arrest with successful resuscitation I46.9 Bigeminy I49.8 Abdominal aortic aneurysm (AAA) without rupture I71.4 Presence of rupture: without rupture Atrial fibrillation, unspecified type I48.91 Atrial fibrillation type: unspecified
--- NOTE | 2023-04-12 13:51 | PM.DCS ---
Discharge Providers Date of Admission: 04/11/23 14:35 Date of Discharge: April 12, 2023 Attending Provider at Admission: Yuly Stern MD Attending Provider at Discharge: Navi Bledsoe Primary Care Provider: Leeann Mcclendon MD Diagnoses at Discharge Discharge Diagnosis (1) Cardiac arrest with successful resuscitation: Status: Acute Reason for Visit Reason for Visit: Fall Brief History: Red Barraza is a 83 year old male with known PMH infrarenal AAA 3.6 cm, A-fib, hypothyroidism significant dementia, carotid stenosis and kidney stones was brought to the emergency room today by family after having had a syncopal episode at home. Patient was in his usual state of health until about 9 PM when he had dinner and upon getting up from the table he suffered a syncopal episode. He sustained an injury after hitting his head against a kitchen island. Patient was apparently pulseless at home and received CPR for about 1 minute at home. This was delivered by his family who is a nurse. By the time he came into the emergency room he was alert and awake. At baseline mentation. He denies any current chest pain dyspnea or palpitations. Denies feeling dizzy however history is not reliable due to his significant dementia. Will to state his name but does not tell me much else. Answers yes or no appropriately in conversation. Hospital Course Hospital Course He underwent additional assessment during hospitalization including telemetry monitoring for possible arrhythmia, noted with some bradycardia, but the lowest down to about 45 bpm, additionally noted ectopic beats with bigeminy. Orthostatic blood pressures assessed and overall unremarkable, 137 systolic lying, 152 sitting, 135 standing. Echocardiogram assessed, found to have moderate aortic stenosis. Normal EF. Mild tricuspid regurgitation. Also found to have acute influenza A infection for which was started on Tamiflu. Mild JESUS noted creatinine up to 1.4 highest, with some improvement of 1.3. Overall the findings had not sufficiently explained to his possible cardiac arrest. Troponin only with mild elevation. He has remained chest pain-free even after chest compressions. Certainly it is possible that pulse was not found during a syncopal episode due to the above findings, however, this is unknown at this time and cardiac arrest for now is still considered. Per report his daughter who is a nurse could not palpate radial or carotid pulses leading to initiation of CPR. Discussed with family, discussed with cardiology and obtain consultation. Given his condition, findings, discussion of further evaluation was had by cardiology with family, overall agreement for discharge home with continued outpatient workup with follow-up with cardiology in office, cardiac monitoring over the next 4 weeks, referral by cardiology to stress testing at next visit. Patient and family know to seek medical attention in case of any worsening or new concerning symptoms. Physical Exam Narrative: Family, at bedside. He is pleasant, conversant, denies any pain or discomfort. No trouble breathing. Const: COMMON NORMALS: alert; negative for patient oriented x3 GENERAL APPEARANCE: cooperative ORIENTATION/CONSCIOUSNESS: Yes awake HENMT: COMMON NORMALS: oropharynx normal Neck/C-Spine: COMMON NORMALS: no JVD Resp: COMMON NORMALS: normal respiratory effort and clear to auscultation bilaterally AUSCULTATION: clear to auscultation bilaterally Cardio: COMMON NORMALS: no JVD, S1 normal heart sound present and S2 normal heart sound present RHYTHM: abnormal rhythm irregularly irregular HEART SOUNDS: S1 normal heart sound present, S2 normal heart sound present and Murmur heart sound present systolic Location: right sternal border and other (aortic) GI: COMMON NORMALS: Normal to inspection, nondistended, normoactive bowel sounds present, Soft to palpation and non-tender PALPATION: Yes Soft to palpation Extremity: COMMON NORMALS: no joint enlargement and no pedal edema Neuro: COMMON NORMALS: moves all extremities; negative for patient oriented x3 SENSORIUM/ORIENTATION: Yes alert Skin: COMMON NORMALS: no rashes or lesions noted GENERAL SKIN EXAM: no rashes or lesions noted Discharge Data Studies Completed and Pending Completed Studies During Hospitalization Category Date Time Status CT ang ches abdpel [id number] Stat Cat Scan 04/11/23 22:[address] cervical spin wo con* [id number] Stat Cat Scan 04/10/23 22:[address] head wo con* [id number] Stat Cat Scan 04/10/23 22:46 Completed CV. echo complete* [id number] Routine Ultrasound 04/11/23 04:55 Completed Radiology Impressions Head CT 04/10/23 22:46 IMPRESSION: No evidence of acute intracranial hemorrhage, mass effect, or edema. No change from prior. Cervical Spine CT 04/10/23 22:49 IMPRESSION: No acute traumatic change in the cervical spine. Patent spinal canal. Neural foraminal stenosis noted on the left at C3-C4 and on the right at C4-C5. Chest/Abdomen/Pelvis CTA 04/11/23 22:46 IMPRESSION: 1. Infrarenal abdominal aortic aneurysm is increased in size compared to 01/09/2022, now measuring up to 4.3 cm, previously up to 3.9 cm. 2. Hyperattenuating left renal lesions are indeterminate, could represent hemorrhagic cysts or solid lesions. Recommend nonemergent characterization with renal protocol CT or MRI. 3. Mild lower lobe predominant airway wall thickening, may be infectious or inflammatory. 4. Cardiomegaly. Laboratory Results WBC 6.33 10^3/uL (3.29-11.43) 04/12/23 06:00 RBC 4.35 10^6/uL (3.85-5.65) 04/12/23 06:00 Hgb 14.80 g/dL (11.27-16.99) 04/12/23 06:00 Hct 43.5 % (37-53) 04/12/23 06:00 MCV 100.0 fl (82-101) 04/12/23 06:00 MCH 34.0 pg (27-33) H 04/12/23 06:00 MCHC 34.0 g/dL (30-55) 04/12/23 06:00 RDW 13.5 % (12.1-15.1) 04/12/23 06:00 Plt Count 124 10^3/cmm (157-399) L 04/12/23 06:00 MPV 12.3 fL (7.4-10.4) H 04/12/23 06:00 Neut % (Auto) 69.4 % 04/12/23 06:00 Lymph % (Auto) 18.3 % 04/12/23 06:00 [place] % (Auto) 8.8 % 04/12/23 06:00 Eos % (Auto) 2.2 % 04/12/23 06:00 Baso % (Auto) 0.8 % 04/12/23 06:00 Neut # (Auto) 4.39 10^3/uL (1.8-7.7) 04/12/23 06:00 Lymph # (Auto) 1.2 10^3/uL (0.8-4.8) 04/12/23 06:00 [place] # (Auto) 0.6 10^3/uL (0.2-0.9) 04/12/23 06:00 Eos # (Auto) 0.1 10^3/uL (0.0-0.8) 04/12/23 06:00 Baso # (Auto) 0.1 10^3/uL (0.0-0.1) 04/12/23 06:00 Nucleated RBC % (auto) 0 % 04/12/23 06:00 Nucleated RBCs # 0.0 /100WBC 04/12/23 06:00 PT 17.00 SECONDS (12.1-14.9) H 04/10/23 22:53 INR 1.34 (0.8-1.2) H 04/10/23 22:53 APTT 30.1 SECONDS (23.9-36.7) 04/10/23 22:53 Sodium 138 mmol/L (136-145) 04/12/23 06:00 Potassium 3.6 mmol/L (3.5-5.1) 04/12/23 06:00 Chloride 101 mmol/L (98-107) 04/12/23 06:00 Carbon Dioxide 25 mmol/L (22-29) 04/12/23 06:00 Anion Gap 15.6 (5-19) 04/12/23 06:00 BUN 18 mg/dL (8-23) 04/12/23 06:00 Creatinine 1.3 mg/dL (0.7-1.2) H 04/12/23 06:00 GFR Calculation Not Reportable 04/12/23 06:00 Glucose 94 mg/dL (65-115) 04/12/23 06:00 Calculated Osmolality 288 mOsm/kg (285-295) 04/12/23 06:00 Calcium 9.1 mg/dL (8.5-10.5) 04/12/23 06:00 Magnesium 2.0 mg/dL (1.7-2.3) 04/11/23 08:49 Total Bilirubin 2.1 mg/dL (0.15-1.2) H 04/12/23 06:00 AST 22 U/L (0-40) 04/12/23 06:00 ALT 17 U/L (0-41) 04/12/23 06:00 Alkaline Phosphatase 109 U/L (40-130) 04/12/23 06:00 Troponin T Baseline 24 ng/L (0-15) H 04/10/23 22:53 Troponin T 120 Minute 21.41 ng/L (0-15) H 04/11/23 00:30 Delta Troponin T -2.59 ABS# (0-10) L 04/11/23 00:30 Troponin T Hi Sens 6Hr 24.72 ng/L (0-15) H 04/11/23 04:30 Troponin T Hi Sens 6Hr Delta 0.72 ng/L (0-12) 04/11/23 04:30 Total Protein 6.4 g/dL (6.6-8.7) L 04/12/23 06:00 Albumin 3.9 g/dL (3.5-5.2) 04/12/23 06:00 Globulin 2.5 g/dL (1.3-4.6) 04/12/23 06:00 Influenza Type A Ag negative (Negative) 04/11/23 09:09 Influenza Type B Ag positive (Negative) H 04/11/23 09:09 SARS-CoV-2 Ag (Rapid) negative (Negative) 04/11/23 08:47 Vitals Last Vital Signs Temp 97.6 F 04/12/23 11:02 Pulse 73 04/12/23 11:02 Resp 15 04/12/23 11:02 BP 158/88 04/12/23 11:02 Pulse Ox 100 04/12/23 11:02 O2 Del Method Room Air 04/12/23 11:02 Discharge Plan Discharge Patient Disposition: Home Condition: Stable Prescriptions: New oseltamivir 75 mg Capsule 75 mg PO BID Qty: 7 0RF Continued Eliquis 5 mg tablet 5 mg PO BID lisinopril 40 mg tablet 40 mg PO BID atorvastatin [Lipitor] 40 mg tablet 40 mg PO BEDTIME quercetin 500 mg PO BID doxycycline hyclate 100 mg tablet 100 mg PO BID Qty: 180 3RF hydrochlorothiazide 12.5 mg tablet 12.5 mg PO QAM famotidine [Pepcid AC] 10 mg Tablet 10 mg PO DAILY PRN (Reason: Heartburn) cetirizine [Zyrtec] 10 mg Tablet 10 mg PO QAM levothyroxine 125 mcg tablet 125 mcg PO QAM nitroglycerin [Nitrostat] 0.4 mg Tablet, Sublingual 0.4 mg SUBLINGUAL Q5M PRN (Reason: Chest Pain) Rx Instructions: do not exceed 3 doses per episode metoprolol succinate 25 mg tablet extended release 24 hr 25 mg PO QAM fluticasone propionate 50 mcg/actuation [place],Suspension 2 spray INTRANASAL DAILY PRN (Reason: Allergy Symptoms) Rx Instructions: administer into each nostril cholecalciferol (vitamin D3) [Vitamin D3] 50 mcg (2,000 unit) Capsule 50 mcg PO BID Discharge Orders: Discharge Order (Routine); Ordered 04/12/23 Ordered By: Navi Bledsoe Other Ambulatory Orders: MCT/Event Monitor 30 Days (Routine) Timeframe: 3 Days Facility: [facility] - Location: Radiology Ordered By: Navi Bledsoe Referrals: Leeann Mcclendon MD [Primary Care Provider] - 04/17/23 8:20 am Amador Cassidy MD [Physician] - 1 month (We have notified your physician's clinic of the need for a follow-up appointment to be scheduled. If you have not heard from them within the next 2 business days, please call them directly. ) Lisa Harris FNP [Nurse Practitioner] - 7-10 days (We have notified your physician's clinic of the need for a follow-up appointment to be scheduled. If you have not heard from them within the next 2 business days, please call them directly. ) Discharge Diet: Cardiac Patient Instructions: Oseltamivir (By mouth), Aortic Stenosis (GEN), Syncope (GEN), Influenza (GEN) Activity Restrictions/Additional Instructions: Return to the hospital in case of any worsening or concerning symptoms. Follow-up to be set up with gambling monitor. Follow-up with cardiology for additional assessment and referral for stress testing. Follow-up with your primary doctor for reassessment of recovery from influenza virus. Your primary doctor recheck your liver numbers, bilirubin has been somewhat elevated, up to 2.1, but with normal other parameters. Discharge Attestations Time Spent in Discharge Care*: greater than 30 min Status at Discharge: Cognitive status at discharge: mildly impaired cognition, Behavioral status at discharge: cooperative, Quality Metrics Clinical Quality Measures [ No reported AMI, CVA or VTE this stay] Coding Level of Care Code 11568 Total time (in minutes) for Discharge: 55 Diagnoses Cardiac arrest with successful resuscitation I46.9
[2023-04-12 16:18] VITALS: BP 158/88; PULSE 73; RESP 15; TEMP 36.4; O2SAT 100
== END 2023-04-12 15:40 | disposition home or self-care (01) | DRG 297 ==
LOC: ER 04-11 03:07 → ICU 04-11 05:16 → MEDSURG 04-11 18:13
PROVIDERS: Admitting Provider Student in an Organized Health Care Education/Training Program; Emergency Provider Family Medicine; PCP Family Medicine; Visit Provider Internal Medicine
DX: I46.9 Cardiac arrest, cause unspecified (principal); N17.9 Acute kidney failure, unspecified; I49.8 Other specified cardiac arrhythmias; N30.20 Other chronic cystitis without hematuria; J10.1 Influenza due to other identified influenza virus with other respiratory manifestations; R00.1 Bradycardia, unspecified; I35.0 Nonrheumatic aortic (valve) stenosis; I25.10 Atherosclerotic heart disease of native coronary artery without angina pectoris; Z95.5 Presence of coronary angioplasty implant and graft; D69.6 Thrombocytopenia, unspecified; I71.43 Infrarenal abdominal aortic aneurysm, without rupture; G30.9 Alzheimer's disease, unspecified; F02.80 Dementia in other diseases classified elsewhere, unspecified severity, without behavioral disturbance, psychotic disturbance, mood disturbance, and anxiety; E78.5 Hyperlipidemia, unspecified; E03.9 Hypothyroidism, unspecified; I48.91 Unspecified atrial fibrillation; Z79.01 Long term (current) use of anticoagulants
CPT/HCPCS: 36415; 70450; 71275; 72125; 74174; 80053; 83735; 84484; 85025; 85610; 85730; 87426; 87804; 93005; 93306; 99285; G0378; J0360; Q9967

== ENCOUNTER 2023-04-18 02:48 | Emergency (ER) | payer OTHER, SELFPAY ==
[2023-04-18] VITALS (9 sets, daily range): BP systolic 103–148; BP diastolic 66–99; PULSE 63–78; RESP 16–18; TEMP 36.8; O2SAT 94–100; BMI 27.8
--- NOTE | 2023-04-18 03:02 | W.ED.FALL ---
HPI - Fall General: Chief Complaint: Fall Stated Complaint: SYNCOPAL Time Seen by Provider: 04/18/23 02:53 History of Present Illness: Patient was brought to the ER by [facility] after being found on the floor by his family. Patient has no complaints at this time does not complain of pain. Patient does have dementia. Patient was recently discharged from the hospital with diagnosis of syncope and atrial fibrillation. Patient is currently on Eliquis. Review of Systems General: Reports: 10 or more systems reviewed and unremarkable except in HPI and below PFSH ED PFSH: Medical History H/O coronary angiogram Chronic prostatitis Hypothyroidism -on levothyroxine Chronic anticoagulation A. fib A-fib Thrombocytopenia -Follows up with Dr. Chun, isolated thrombocytopenia -platelet count stable, no bleeding Renal calculi Hypothyroid Hyperlipidemia CKD (chronic kidney disease), stage III Microscopic hematuria Lung nodules Ventricular trigeminy Prostatitis Right ureteral calculus AAA (abdominal aortic aneurysm) Surgical History H/O right knee surgery knee replacement H/O total knee replacement RIGHT S/P coronary artery stent placement S/P PTCA (percutaneous transluminal coronary angioplasty) Hx of tonsillectomy Hx of shoulder surgery Family History Mother , at age 63 CAD (coronary artery disease) Father , at age 77 CAD (coronary artery disease) Social History Smoking and tobacco/nicotine status: never used tobacco/nicotine Alcohol intake: current Alcohol intake frequency: holidays/special occasions only Substance/Drug Use: unknown Adopted: No Caregiver/support person: No Lives independently: No Household members: spouse Marital status: Current occupational status: retired Physical Exam Const: COMMON NORMALS: no acute distress, average body habitus, healthy appearing, alert and well nourished; limitations (Patient's dementia) HENMT: COMMON NORMALS: normocephalic, atraumatic, hearing grossly normal bilaterally, external ears normal, Normal external nose present, moist oral mucous membranes and oropharynx normal HEAD & SCALP: normocephalic and atraumatic NOSE: Normal external nose present EXTERNAL EAR: Yes external ears normal Eye: COMMON NORMALS: Equal, round and reactive pupils present, EOMs intact bilaterally, conjunctivae normal and no scleral icterus CONJUNCTIVA: Yes conjunctivae normal PUPIL: Yes Equal, round and reactive pupils present Neck/C-Spine: COMMON NORMALS: full ROM, no lymphadenopathy, supple, no meningeal signs, no JVD and Thyroid normal THYROID: Thyroid normal Chest: COMMONS NORMALS: normal inspection of the chest and normal palpation of entire chest wall Resp: COMMON NORMALS: normal respiratory effort, No retractions, No use of accessory muscles and clear to auscultation bilaterally AUSCULTATION: clear to auscultation bilaterally Cardio: COMMON NORMALS: no JVD, regular rate, regular rhythm, S1 normal heart sound present, S2 normal heart sound present, No gallops present (Cardio), No clicks present (Cardio), No murmurs present (Cardio) and No rub (Cardio) RATE: regular rate RHYTHM: regular rhythm HEART SOUNDS: S1 normal heart sound present and S2 normal heart sound present GI: COMMON NORMALS: Normal to inspection, nondistended, normoactive bowel sounds present, Soft to palpation, non-tender, No hepatosplenomegaly present and no masses PALPATION: Yes Soft to palpation and Yes No hepatosplenomegaly present Neuro: SENSORIUM/ORIENTATION: Yes alert MENINGEAL SIGNS: Yes no meningeal signs Course Vital Signs: Vital signs: Vital Signs Temperature 98.2 F 04/18/23 02:49 Pulse Rate 69 04/18/23 05:35 Respiratory Rate 18 04/18/23 05:35 Blood Pressure 103/67 04/18/23 05:35 Pulse Oximetry 98 04/18/23 05:35 Oxygen Delivery Me thod Room Air 04/18/23 04:32 MDM - Fall Medical Decision Making Patient was found down in his home. He possibly had an unwitnessed fall. Patient has dementia and is a poor historian. Patient's head was scanned with without contrast. My preliminary interpretation is negative. We will wait for the radiologist interpretation. Anticipate patient be discharged home Differential Diagnosis Unlikely syncope, dislocation of shoulder region, fracture of wrist, compression fracture, concussion with loss of consciousness or concussion without loss of consciousness Medical Records I reviewed the patient's medical records. Lab Data I reviewed the patient's lab results. XR interpretation done by ED provider, pending radiology final review ED provider radiology interpretation(s): My interpretation is negative. EKG Data EKG 1: I personally reviewed and interpreted this EKG as follows: EKG interpretation date: 04/18/23 EKG interpretation time: 03:01 Prior EKG tracings: not available for review Interpretation: EKG showed ventricular rate 62 beats a minute, QRS duration 118, QTc of 402, atrial fibrillation, Discharge Plan Discharge Patient Disposition: Home Clinical Impression: Fall Condition: Stable Prescriptions: No Action Eliquis 5 mg tablet 5 mg PO BID lisinopril 40 mg tablet 40 mg PO BID atorvastatin [Lipitor] 40 mg tablet 40 mg PO BEDTIME quercetin 500 mg PO BID doxycycline hyclate 100 mg tablet 100 mg PO BID Qty: 180 3RF hydrochlorothiazide 12.5 mg tablet 12.5 mg PO QAM oseltamivir 75 mg Capsule 75 mg PO BID Qty: 7 0RF famotidine [Pepcid AC] 10 mg Tablet 10 mg PO DAILY PRN (Reason: Heartburn) cetirizine [Zyrtec] 10 mg Tablet 10 mg PO QAM levothyroxine 125 mcg tablet 125 mcg PO QAM nitroglycerin [Nitrostat] 0.4 mg Tablet, Sublingual 0.4 mg SUBLINGUAL Q5M PRN (Reason: Chest Pain) Rx Instructions: do not exceed 3 doses per episode metoprolol succinate 25 mg tablet extended release 24 hr 25 mg PO QAM fluticasone propionate 50 mcg/actuation [place],Suspension 2 spray INTRANASAL DAILY PRN (Reason: Allergy Symptoms) Rx Instructions: administer into each nostril cholecalciferol (vitamin D3) [Vitamin D3] 50 mcg (2,000 unit) Capsule 50 mcg PO BID Discharge Orders: Discharge ED (Routine); Ordered 04/18/23 Ordered By: Hermann Macias Referrals: Leeann Mcclendon MD [Primary Care Provider] - Patient Instructions: Fall Prevention Activity Restrictions/Additional Instructions: Your CT in ER performed was negative. Please follow-up with your family practice physician within next 7 to 10 days for further evaluation and treatment as needed. Coding Level of Care Code ED Unit Director for Yaritza Matias
--- NOTE | 2023-04-18 03:05 | ECG_ITS ---
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 Measurements Intervals [place] Rate: 62 P: 0 WA: 0 QRS: -52 QRSD: 118 T: 73 QT: 397 QTc: 404 Interpretive Statements ATRIAL FIBRILLATION PATTERN CONSISTENT WITH PULMONARY DISEASE LEFT ANTERIOR FASCICULAR BLOCK [QRS AXIS <= -45, QR IN I, RS IN II] MINIMAL VOLTAGE CRITERIA FOR LVH, CONSIDER NORMAL VARIANT [MEETS CRITERIA IN ONE OF: R(aVL), S(V1), R(V5), R(V5/V6)+S(V1)] INFERIOR MYOCARDIAL INFARCTION , OF INDETERMINATE AGE [40+ ms Q WAVE AND/OR ST/T ABNORMALITY IN II/aVF] Compared to ECG 04/10/2023 23:02:19 Left anterior fascicular block now present Myocardial infarct finding still present Electronically Signed On 04-18-2023 13:05:11 TANDEM MILL OPERATOR by Roc Yen M.D. [id number]
--- NOTE | 2023-04-18 03:17 | CTR_ITS ---
PROCEDURE INFORMATION: Exam: CT Head Without Contrast Exam date and time: 04/18/2023 3:34 AM Age: 83 years old Clinical indication: Injury or trauma; Fall; Blunt trauma (contusions or hematomas); Additional info: Fall, dementia, on eliquis TECHNIQUE: Imaging protocol: Computed tomography of the head without contrast. Radiation optimization: All CT scans at this facility use at least one of these dose optimization techniques: automated exposure control; mA and/or kV adjustment per patient size (includes targeted exams where dose is matched to clinical indication); or iterative reconstruction. COMPARISON: CT head wo con* [id number] 04/10/2023 11:54 PM RADIATION DOSE METRICS: Total DLP (mGy-cm): 1219.48 FINDINGS: Brain: There is moderate small vessel disease. There is no evidence of acute parenchymal hemorrhage, extra-axial collection, or acute infarction. There is no mass effect, midline shift, or downward herniation. Cerebral ventricles: No ventriculomegaly. Paranasal sinuses: Visualized sinuses are unremarkable. No fluid levels. Mastoid air cells: Visualized mastoid air cells are well aerated. Bones/joints: Unremarkable. No acute fracture. Soft tissues: Unremarkable. CT/CT head wo con* [id number] IMPRESSION: Moderate small vessel disease. No evidence of acute intracranial process.
== END 2023-04-18 08:00 | disposition home or self-care (01) ==
PROVIDERS: Emergency Provider Emergency Medicine; PCP Family Medicine
DX: R55 Syncope and collapse (principal); N18.30 Chronic kidney disease, stage 3 unspecified; E78.5 Hyperlipidemia, unspecified; F03.90 Unspecified dementia, unspecified severity, without behavioral disturbance, psychotic disturbance, mood disturbance, and anxiety; Z79.01 Long term (current) use of anticoagulants; W18.39XA Other fall on same level, initial encounter
CPT/HCPCS: 70450; 93005; 99284

== ENCOUNTER → 2023-05-01 09:53 | Outpatient (BNVA) | payer OTHER, SELFPAY | PROVIDERS: PCP Family Medicine; Visit Provider Nurse Practitioner Family | DX: I48.91 Unspecified atrial fibrillation (principal); Z79.01 Long term (current) use of anticoagulants | CPT/HCPCS: 99213 ==

== ENCOUNTER → 2023-05-13 12:30 | Outpatient (BNVA) | payer OTHER, SELFPAY | PROVIDERS: PCP Family Medicine; Visit Provider Internal Medicine | DX: I48.91 Unspecified atrial fibrillation (principal); Z79.01 Long term (current) use of anticoagulants; I71.40 Abdominal aortic aneurysm, without rupture, unspecified | CPT/HCPCS: 99214 ==

== ENCOUNTER 2023-11-19 10:19 | Emergency (ER) | payer OTHER, MEDICARE, SELFPAY ==
[2023-11-19] VITALS (7 sets, daily range): BP systolic 112–167; BP diastolic 76–108; PULSE 57–62; RESP 18; TEMP 36.8; O2SAT 95–99; BMI 29.8
--- NOTE | 2023-11-19 10:42 | ED_ITS ---
HPI - Epistaxis 2 General: Chief complaint: Epistaxis Stated complaint: Nose Bleed Time Seen by Provider: 11/19/23 10:23 History of Present Illness: 83-[facility]. Patient is on Eliquis. Patient has significant dementia is unable to provide any history history from family. I had this intermittently for unable to control at times at home they feel that seems worse when he stands up. He also reported small spot of blood in his depends about a week ago. No other hematuria noted no recent fever sweats or chills no recent trauma. Associated symptoms: Deny fever(s) Review of Systems 2 Const: Denies: fever(s) or chills Card: Denies: chest pain Resp: Denies: dyspnea GI: Denies: abdominal pain : Denies: dysuria, urinary frequency or urinary urgency Musc: Denies: neck pain or back pain Skin/Breast: Denies: rash PFSH ED 2 PFSH: Medical History H/O coronary angiogram Chronic prostatitis Hypothyroidism -on levothyroxine Chronic anticoagulation A. fib A-fib Thrombocytopenia -Follows up with Dr. Chun, isolated thrombocytopenia -platelet count stable, no bleeding Renal calculi Hypothyroid Hyperlipidemia CKD (chronic kidney disease), stage III Microscopic hematuria Lung nodules Ventricular trigeminy Prostatitis Right ureteral calculus AAA (abdominal aortic aneurysm) Surgical History H/O right knee surgery knee replacement H/O total knee replacement RIGHT S/P coronary artery stent placement S/P PTCA (percutaneous transluminal coronary angioplasty) Hx of tonsillectomy Hx of shoulder surgery Family History Mother , at age 63 CAD (coronary artery disease) Father , at age 77 CAD (coronary artery disease) Social History Smoking and tobacco/nicotine status: never used tobacco/nicotine Alcohol intake: current Alcohol intake frequency: holidays/special occasions only Substance/Drug Use: unknown Adopted: No Caregiver/support person: No Lives independently: No Household members: spouse Marital status: Current occupational status: retired Physical Exam 2 Const: GENERAL APPEARANCE: cooperative ORIENTATION/CONSCIOUSNESS: Yes awake HENMT: COMMON NORMALS: normocephalic and atraumatic HEAD & SCALP: n ormocephalic and atraumatic OTHER: Dried blood in the nares no active bleeding some mucousy blood streaking in the mouth and posterior pharynx no active bleeding from posterior pharyngeal wall Resp: COMMON NORMALS: normal respiratory effort, No retractions, No use of accessory muscles and clear to auscultation bilaterally AUSCULTATION: clear to auscultation bilaterally Cardio: COMMON NORMALS: regular rate, regular rhythm and No murmurs present (Cardio) RATE: regular rate RHYTHM: regular rhythm GI: COMMON NORMALS: Soft to palpation and No hepatosplenomegaly present A USCULTATION: Yes normoactive bowel sounds PALPATION: Yes Soft to palpation, No Tenderness to palpation present (GI), No Guarding due to palpation present (GI) and Yes No hepatosplenomegaly present Extremity: COMMON NORMALS: normal to inspection, capillary refill normal, no clubbing, cyanosis or edema, no calf tenderness and no pedal edema Skin: COMMON NORMALS: no rashes or lesions noted GENERAL SKIN EXAM: no rashes or lesions noted Course 2 Vital Signs: Vital signs: Vital Signs Temperature 98.2 F 11/19/23 10:23 Pulse Rate 62 11/19/23 14:32 Respiratory Rate 18 11/19/23 10:23 Blood Pressure 167/97 11/19/23 14:32 Pulse Oximetry 98 11/19/23 14:32 Oxygen Delivery Me thod Room Air 11/19/23 12:30 MDM - Epistaxis Medical Decision Making No ongoing epistaxis the emergency room he was treated with Afrin. He does had some mucousy bloody discharge in the back of his throat but no active bleeding. He also had some hematuria CT shows some hemorrhagic cysts these were noted in March [address] Benton he is okay with holding Eliquis until ENT is evaluated. Discussed the risks and benefits with the she is agreeable to holding and she understands it does slightly increase his risk of a stroke due to his A-fib but at this point with the recurrent epistaxis is agreeable to holding it. Will do the oxymetazoline nasal spray 2 sprays in each nostril twice a day for the next 3 days refer to ENT for further evaluation follow-up with primary care regarding the renal cysts cyst seen on the CT Lab Data 11/19/23 11:14 Radiology Impressions Abdomen/Pelvis CT 11/19/23 12:52 IMPRESSION: 1. No renal obstruction or calcification. No ureteral calcification. 2. Bilateral indeterminate renal masses. Renal masses have increased and decreased attenuation. These may be hemorrhagic cysts or solid masses along with cystic masses. These have been previously described. Some of increased in size and some are similar. Cannot be further characterized without IV contrast. 3. Stable abdominal aortic aneurysm at 4.4 cm. 4. No GI tract obstruction. 5. Prior cholecystectomy. Laboratory Results WBC 7.74 10^3/uL (3.29-11.43) 11/19/23 11:14 RBC 4.21 10^6/uL (3.85-5.65) 11/19/23 11:14 Hgb 14.50 g/dL (11.27-16.99) 11/19/23 11:14 Hct 43.4 % (37-53) 11/19/23 11:14 MCV 103.1 fl (82-101) H 11/19/23 11:14 MCH 34.4 pg (27-33) H 11/19/23 11:14 MCHC 33.4 g/dL (30-55) 11/19/23 11:14 RDW 14.6 % (12.1-15.1) 11/19/23 11:14 Plt Count 115 10^3/cmm (157-399) L 11/19/23 11:14 MPV 12.7 fL (7.4-10.4) H 11/19/23 11:14 Neut % (Auto) 79.1 % 11/19/23 11:14 Lymph % (Auto) 11.4 % 11/19/23 11:14 [place] % (Auto) 7.1 % 11/19/23 11:14 Eos % (Auto) 1.0 % 11/19/23 11:14 Baso % (Auto) 0.5 % 11/19/23 11:14 Neut # (Auto) 6.12 10^3/uL (1.8-7.7) 11/19/23 11:14 Lymph # (Auto) 0.9 10^3/uL (0.8-4.8) 11/19/23 11:14 [place] # (Auto) 0.6 10^3/uL (0.2-0.9) 11/19/23 11:14 Eos # (Auto) 0.1 10^3/uL (0.0-0.8) 11/19/23 11:14 Baso # (Auto) 0.0 10^3/uL (0.0-0.1) 11/19/23 11:14 Nucleated RBC % (auto) 0 % 11/19/23 11:14 Nucleated RBCs # 0.0 /100WBC 11/19/23 11:14 PT 17.00 SECONDS (12.1-14.9) H 11/19/23 11:14 INR 1.33 (0.8-1.2) H 11/19/23 11:14 APTT 32.9 SECONDS (23.9-36.7) 11/19/23 11:14 Urine Color Yellow (Yellow) 11/19/23 12:18 Urine Appearance Clear (CLEAR) 11/19/23 12:18 Urine pH 6.0 (5-7) 11/19/23 12:18 Ur Specific [place] 1.021 (1.005-1.030) 11/19/23 12:18 Urine Protein 1+ (Negative) A 11/19/23 12:18 Urine Glucose (UA) Negative (Normal) 11/19/23 12:18 Urine Ketones Negative (Negative) 11/19/23 12:18 Urine Blood 3+ (Negative) A 11/19/23 12:18 Urine Nitrate Negative (Negative) 11/19/23 12:18 Urine Bilirubin Negative (Negative) 11/19/23 12:18 Urine Urobilinogen 1.0 mg/dL (Negative) 11/19/23 12:18 Ur Leukocyte Esterase Trace (Negative) A 11/19/23 12:18 Urine RBC >100 /hpf (0-2) H 11/19/23 12:18 Urine WBC 0-5 /hpf (0-5) 11/19/23 12:18 Ur Squamous Epith Cells 0-5 /hpf (0-5) 11/19/23 12:18 Amorphous Sediment Not Reportable 11/19/23 12:18 Urine Bacteria None seen /hpf (NONE) 11/19/23 12:18 Hyaline Casts 2.46 /lpf 11/19/23 12:18 All radiology interpretation(s) finalized by discharge Discharge Plan Discharge Patient Disposition: Home Clinical Impression: Epistaxis, A-fib, Asymptomatic microscopic hematuria, Chronic anticoagulation, Renal cyst Condition: Stable Prescriptions: Discontinued Eliquis 5 mg tablet 5 mg PO BID No Action lisinopril 40 mg tablet 40 mg PO BID atorvastatin [Lipitor] 40 mg tablet 40 mg PO BEDTIME quercetin 500 mg PO BID doxycycline hyclate 100 mg tablet 100 mg PO BID Qty: 180 3RF hydrochlorothiazide 12.5 mg tablet 12.5 mg PO QAM levetiracetam [Keppra] 500 mg tablet 500 mg PO BID famotidine [Pepcid AC] 10 mg Tablet 10 mg PO DAILY PRN (Reason: Heartburn) cetirizine [Zyrtec] 10 mg Tablet 10 mg PO QAM nitroglycerin [Nitrostat] 0.4 mg Tablet, Sublingual 0.4 mg SUBLINGUAL Q5M PRN (Reason: Chest Pain) Rx Instructions: do not exceed 3 doses per episode cholecalciferol (vitamin D3) [Vitamin D3] 50 mcg (2,000 unit) Capsule 50 mcg PO BID levothyroxine 112 mcg tablet 112 mcg PO QAM metoprolol tartrate 25 mg tablet 25 mg PO BID Discharge Orders: Discharge ED (Routine); Ordered 11/19/23 Ordered By: Julio Corey Referrals: Leeann Mcclendon MD [Primary Care Provider] - Discharge Diet: Usual diet Discharge Activity: Resume usual activity Patient Instructions: Opioid Safety, Pain Management Activity Restrictions/Additional Instructions: Thank you for choosing [facility] for your healthcare needs today. It is very important that you follow up as instructed or that you return to the Emergency Department should you have concerns or if your condition changes or worsens in any way. You are seen in the emergency room with complaint of epistaxis (bloody nose). The bleeding is stopped. We recommend that you hold your Eliquis until you are evaluated by ENT. We also noted blood in the urine CT shows hemorrhagic cysts in the kidneys suspect this is the source of the blood in urine is likely exacerbated by the Eliquis as well. Case management make arrangements for you to follow-up with ENT. For the next 3 days recommend you use Afrin nasal spray 2 sprays in each nostril twice a day. Coding Level of Care Code ED Spray Machine Tender for Yaritza Matias
[2023-11-19] MEDS: oxymetazoline 0.05% Nasal Spray 15 mL 2 SPRAY NOSTRIL-B (11:30)
[2023-11-19 11:39] LABS: Basophils % 0.5 %; Eosinophils # 0.1 10^3/uL (0.0-0.8); Hematocrit 43.4 % (37-53); Lymphocytes # 0.9 10^3/uL (0.8-4.8); Lymphocytes % 11.4 %; Mean Corpuscular HGB Conc 33.4 g/dL (30-55); Mean Corpuscular Hemoglobin 34.4 pg (27-33); Mean Corpuscular Volume 103.1 fl (82-101); Mean Platelet Volume 12.7 fL (7.4-10.4); Monocytes # 0.6 10^3/uL (0.2-0.9); Monocytes % 7.1 %; Neutrophils # 6.12 10^3/uL (1.8-7.7); Neutrophils % 79.1 %; Nucleated Red Blood Cells % 0 %; Platelet Count 115 10^3/cmm (157-399); Red Blood Count 4.21 10^6/uL (3.85-5.65); Red Cell Distribution Width 14.6 % (12.1-15.1); White Blood Count 7.74 10^3/uL (3.29-11.43)
[2023-11-19 11:52] LABS: INR 1.33 (0.8-1.2)
[2023-11-19 11:53] LABS: Partial Thromboplastin Time 32.9 SECONDS (23.9-36.7)
[2023-11-19 12:22] LABS: Charge for UA Resulting for Rev
[2023-11-19 12:34] LABS: Bilirubin Urine Negative (Negative); Blood Urine 3+ (Negative); Glucose Urine UA Negative (Normal); Ketones Urine Negative (Negative); Leukocyte Esterase Urine Trace (Negative); Nitrate Urine Negative (Negative); Protein Urine 1+ (Negative); Specific Gravity, Urine 1.021 (1.005-1.030); Urine Appearance Clear (CLEAR); Urine Color Yellow (Yellow)
[2023-11-19 12:37] LABS: Bacteria Urine None Seen /hpf; Hyaline Casts Urine 2.46 /lpf; RBC Urine >100 /hpf (0-2); Squamous Epithelial Cell Urine 0-5 /hpf (0-5); WBC Urine 0-5 /hpf (0-5)
[2023-11-19 12:44] LABS: Add Urine Culture? Yes
--- NOTE | 2023-11-19 12:52 | CT_ITS ---
WS: [id number] CT ABDOMEN AND PELVIS NONCONTRAST HISTORY: flank pain TECHNIQUE: Imaging performed through the abdomen and pelvis. Coronal and sagittal reformats are submi tted. All CT scans at [facility] use at least one of these dose optimization techniques: auto mated exposure control; mA and/or kV adjustment per patient size (includes targeted exams where dose is matched to clinical indication); or iterative reconstruction. DLP: 774.22 mGy.cm COMPARISON: 04/11/2023 Lower thorax: Stable RIGHT perifissural nodule. Mild pleural thickening at the lung bases. Mild cardi omegaly. Liver: Normal size liver. No mass or bile duct dilatation. Gallbladder: Prior cholecystectomy. Pancreas: Mild diffuse fatty replacement. Spleen: Normal. Adrenal glands: Normal. No mass. Right kidney: Normal size kidney. There are multiple masses identified. Some of these are below atten uation and some are of increased attenuation no obstruction. No ureteral calcification. Left kidney: No ureteral calcification. No obstruction. Renal mass is of increased and decreased atte nuation as on prior studies. These cannot be further characterized. These may be hemorrhagic cysts or solid masses. Aorta: Atherosclerosis aorta. Reidentified is an infrarenal abdominal aortic aneurysm with a maximum diameter of 4.4 cm which is similar to the prior study. No free fluid, intraperitoneal air or significant lymphadenopathy. GI tract: Nondistended stomach. No small bowel obstruction. Mild constipation. No obstruction. Mild d iverticular disease. Abdominal wall: Negative. No hernia. Pelvis: Urinary bladder is only partially distended. Mild bladder wall thickening. No focal mass. Mil d prostate enlargement. Osseous structures: Unremarkable. CT/CT kidney stone [id number] IMPRESSION: 1. No renal obstruction or calcification. No ureteral calcification. 2. Bilateral indeterminate renal masses. Renal masses have increased and decre ased attenuation. These may be hemorrhagic cysts or solid masses along with cys tic masses. These have been previously described. Some of increased in size and some are similar. Cannot be further characterized without IV contrast. 3. Stable abdominal aortic aneurysm at 4.4 cm. 4. No GI tract obstruction. 5. Prior cholecystectomy.
--- NOTE | 2023-11-19 13:35 | PC.PHAR ---
pt is va
[2023-11-19] MEDS: lidocaine 2% INJ 20 mL INJECTION (15:16)
[2023-11-19] MEDS: tranexamic acid 1,000 mg/10mL SDV 1000 MG XX (15:16)
--- NOTE | 2023-11-20 12:16 | DCPLANNER ---
Referral sent to Dr Hoffman office-
== END 2023-11-19 16:00 | disposition home or self-care (01) ==
PROVIDERS: Emergency Provider Family Medicine; PCP Family Medicine
DX: R04.0 Epistaxis (principal); I48.91 Unspecified atrial fibrillation; R31.21 Asymptomatic microscopic hematuria; Z79.01 Long term (current) use of anticoagulants; N28.1 Cyst of kidney, acquired; E78.5 Hyperlipidemia, unspecified; N18.30 Chronic kidney disease, stage 3 unspecified
CPT/HCPCS: 36415; 74176; 81003; 81015; 85025; 85610; 85730; 87086; 99284

== ENCOUNTER → 2023-11-22 10:44 | Outpatient (BNVA) | payer OTHER, MEDICARE, SELFPAY | PROVIDERS: PCP Family Medicine; Visit Provider Nurse Practitioner Family | DX: I48.91 Unspecified atrial fibrillation (principal) | CPT/HCPCS: 99213 ==

== ENCOUNTER 2024-01-25 05:17 | Emergency (ER) | payer OTHER, MEDICARE, SELFPAY ==
--- NOTE | 2024-01-25 05:24 | ED_ITS ---
HPI - Epistaxis General: Stated complaint: NOSE BLEED Time Seen by Provider: 01/25/24 05:24 History of Present Illness: Patient presents to the ER with complaints of epistaxis from the right nostril. Patient is nonverbal has severe Alzheimer's dementia, EMS stated his said that she heard him making weird noises when she turned the light on he was bleeding from his right nostril. Patient is on Eliquis for A-fib. By the time EMS arrived here bleeding had stopped. Related Data Home Medications Medication Instructions Recorded Confirmed atorvastatin 40 mg tablet (Lipitor) 40 mg PO BEDTIME 09/23/19 01/14/24 lisinopril 40 mg tablet 40 mg PO BID 09/23/19 01/14/24 hydrochlorothiazide 12.5 mg tablet 12.5 mg PO QAM 09/27/22 01/14/24 cetirizine 10 mg tablet (Zyrtec) 10 mg PO QAM 11/12/22 01/14/24 cholecalciferol (vitamin D3) 50 50 mcg PO BID 11/12/22 01/14/24 mcg (2,000 unit) capsule (Vitamin D3) famotidine 10 mg tablet (Pepcid AC) 10 mg PO DAILY PRN Heartburn 11/12/22 01/14/24 nitroglycerin 0.4 mg sublingual 0.4 mg sublingual Q5M PRN Chest 11/12/22 01/14/24 tablet (Nitrostat) Pain levetiracetam 500 mg tablet 500 mg PO BID 05/01/23 01/14/24 (Keppra) levothyroxine 112 mcg tablet 112 mcg PO QAM 11/19/23 01/14/24 metoprolol tartrate 25 mg tablet 25 mg PO BID 11/19/23 01/14/24 apixaban 2.5 mg tablet 2.5 mg PO BID 11/22/23 01/14/24 doxycycline hyclate 100 mg tablet 100 mg PO DAILY 01/14/24 01/14/24 Previous Rx's Medication Instructions Recorded clonidine HCl 0.1 mg tablet 0.1 mg PO Q12H 30 days #60 tabs 01/16/24 hydralazine 10 mg tablet 10 mg PO BID PRN hypertension 30 01/16/24 days #60 tabs Allergies Allergy/AdvReac Type Severity Reaction Status Date / Time No Known Allergies Allergy Verified 11/22/23 10:50 Review of Systems General: Reports: 10 or more systems reviewed and unremarkable except in HPI and below PFSH ED PFSH: Medical History Hypertension Dementia CAD (coronary artery disease) Syncope started on keppra as felt may be due to seizures Cardiac arrest with successful resuscitation (~03/2023) H/O coronary angiogram Chronic prostatitis Hypothyroidism Chronic anticoagulation 2nd to afib A-fib Thrombocytopenia isolated thrombocytopenia since 2009 Hyperlipidemia CKD (chronic kidney disease), stage III Microscopic hematuria Lung nodules Ventricular trigeminy Right ureteral calculus AAA (abdominal aortic aneurysm) 4.4 cm stable 11/2023 Surgical History History of lithotripsy H/O total knee replacement right S/P coronary artery stent placement S/P PTCA (percutaneous transluminal coronary angioplasty) Hx of tonsillectomy Hx of shoulder surgery Family History Mother , at age 63 CAD (coronary artery disease) Father , at age 77 CAD (coronary artery disease) Social History Smoking and tobacco/nicotine status: never used tobacco/nicotine Alcohol intake: current Alcohol intake frequency: holidays/special occasions only Substance/Drug Use: unknown Adopted: No Caregiver/support person: No Lives independently: No Household members: spouse Marital status: Current occupational status: retired Physical Exam Const: COMMON NORMALS: no acute distress, average body habitus and well nourished HENMT: COMMON NORMALS: normocephalic, atraumatic and external ears normal; external nose not normal (Dried blood on right naris,) and oral mucous membranes not moist (Dry mucous membranes orally patient is a mouth breather) HEAD & SCALP: normocephalic and atraumatic NOSE: external nose not normal (Dried blood on right naris,) EXTERNAL EAR: Yes external ears normal Neck/C-Spine: COMMON NORMALS: no JVD Chest: COMMONS NORMALS: normal inspection of the chest and normal palpation of entire chest wall Resp: COMMON NORMALS: normal respiratory effort, No retractions, No use of accessory muscles and clear to auscultation bilaterally AUSCULTATION: clear to auscultation bilaterally Cardio: COMMON NORMALS: no JVD, S1 normal heart sound present, S2 normal heart sound present, No gallops present (Cardio), No clicks present (Cardio) and No murmurs present (Cardio); negative for regular rate ( irregularly irregular rhythm) and negative for regular rhythm RATE: abnormal rate ( irregularly irregular rhythm) RHYTHM: abnormal rhythm HEART SOUNDS: S1 normal heart sound present and S2 normal heart sound present GI: COMMON NORMALS: Normal to inspection, nondistended, normoactive bowel sounds present, Soft to palpation, non-tender, No hepatosplenomegaly present and no masses PALPATION: Yes Soft to palpation and Yes No hepatosplenomegaly present MDM - Epistaxis Medical Decision Making By time patient arrived in ER nosebleed had stopped. There is a clot in the right naris where the probable bleed was. Patient is on Eliquis. Patient will be watched in the ER and anticipate discharge home. Medical Records I reviewed the patient's medical records. Lab Data I reviewed the patient's lab results. No radiology studies performed this visit Discharge Plan Discharge Patient Disposition: Home Clinical Impression: Epistaxis, A-fib, Anticoagulation adequate Condition: Stable Prescriptions: No Action lisinopril 40 mg tablet 40 mg PO BID atorvastatin [Lipitor] 40 mg tablet 40 mg PO BEDTIME hydrochlorothiazide 12.5 mg tablet 12.5 mg PO QAM apixaban 2.5 mg tablet 2.5 mg PO BID levetiracetam [Keppra] 500 mg tablet 500 mg PO BID famotidine [Pepcid AC] 10 mg Tablet 10 mg PO DAILY PRN (Reason: Heartburn) cetirizine [Zyrtec] 10 mg Tablet 10 mg PO QAM nitroglycerin [Nitrostat] 0.4 mg Tablet, Sublingual 0.4 mg SUBLINGUAL Q5M PRN (Reason: Chest Pain) Rx Instructions: do not exceed 3 doses per episode cholecalciferol (vitamin D3) [Vitamin D3] 50 mcg (2,000 unit) Capsule 50 mcg PO BID levothyroxine 112 mcg tablet 112 mcg PO QAM metoprolol tartrate 25 mg tablet 25 mg PO BID doxycycline hyclate 100 mg tablet 100 mg PO DAILY Hold Instructions: Resume on 01/23/24. clonidine HCl 0.1 mg Tablet 0.1 mg PO Q12H 30 Days Qty: 60 0RF hydralazine 10 mg tablet 10 mg PO BID PRN (Reason: hypertension) 30 Days Qty: 60 0RF Rx Instructions: For SBP > 180 or DBP > 100 Discharge Orders: Discharge ED (Routine); Ordered 01/25/24 Ordered By: Hermann Macias Patient Instructions: Nosebleed (ED) Activity Restrictions/Additional Instructions: Nosebleed had stopped by the time he arrived to the ER. There is a clot in your right nostril. Try not to blow your nose as this may dislodge the clot. You are on Eliquis so this makes your blood thinner so will likely bleed more. If the bleeding is uncontrolled please feel free to return to the ER otherwise follow-up with your family physician within the next 7 to 10 days for further evaluation and treatment. Coding Level of Care Code ED [employer] Insurance Claim Examiner for Yaritza Matias
[2024-01-25 05:27] VITALS: BP 154/79; PULSE 75; RESP 20; TEMP 36.8; O2SAT 96; BMI 27.1
--- NOTE | 2024-01-25 05:29 | XRR_ITS ---
PROCEDURE INFORMATION: Exam: XR Chest Exam date and time: 01/25/2024 5:35 AM Age: 84 years old Clinical indication: Prior surgery; Surgery date: 6+ months; Surgery type: Coronary stents; Patient HX: PT in afib. ; Additional info: A fib, TECHNIQUE: Imaging protocol: Radiologic exam of the chest. Views: 1 view. COMPARISON: CR XR chest 1V portable [id number] 01/14/2024 11:17 AM FINDINGS: Lungs: Unremarkable. No consolidation. Pleural spaces: Unremarkable. No pleural effusion. No pneumothorax. Heart/Mediastinum: The heart is enlarged. There is calcified plaque involving the aorta. Bones/joints: Unremarkable. XR/XR chest 1V portable [id number] IMPRESSION: 1. Cardiomegaly.
[2024-01-25 06:00] VITALS: BP 154/79; PULSE 67; RESP 15; O2SAT 98
[2024-01-25 06:30] VITALS: PULSE 70; RESP 17; O2SAT 99
[2024-01-25 08:38] VITALS: BP 148/94; PULSE 70; RESP 23; O2SAT 98
--- NOTE | 2024-01-25 09:07 | PC.NURSE ---
report given to [facility] @[id number], no further questions.
[2024-01-25 09:35] VITALS: BP 148/94; PULSE 71; O2SAT 94
== END 2024-01-25 09:15 | disposition home or self-care (01) ==
PROVIDERS: Emergency Provider Emergency Medicine
DX: R04.0 Epistaxis (principal); I48.91 Unspecified atrial fibrillation; Z79.01 Long term (current) use of anticoagulants; I12.9 Hypertensive chronic kidney disease with stage 1 through stage 4 chronic kidney disease, or unspecified chronic kidney disease; N18.30 Chronic kidney disease, stage 3 unspecified; I25.10 Atherosclerotic heart disease of native coronary artery without angina pectoris; E78.5 Hyperlipidemia, unspecified; Z98.61 Coronary angioplasty status; G30.9 Alzheimer's disease, unspecified; F02.C0 Dementia in other diseases classified elsewhere, severe, without behavioral disturbance, psychotic disturbance, mood disturbance, and anxiety
CPT/HCPCS: 71045; 99283